=== PATIENT | female | born 1955 | race Caucasian/White ===

== ENCOUNTER → 2023-09-11 | Outpatient (CLI) | payer MEDICARE, SELFPAY ==
[2023-09-11 16:56] LABS: T4 Free Direct 1.13 ng/dL (0.76-1.46); Thyroid Stim Hormone (TSH) 0.33 uIU/mL (0.358-3.74)
== END | disposition home or self-care (01) ==
PROVIDERS: PCP Family Medicine; Referring Provider Family Medicine; Visit Provider Family Medicine
DX: E03.9 Hypothyroidism, unspecified (principal)
CPT/HCPCS: 36415; 84439; 84443

== ENCOUNTER → 2023-11-04 | Outpatient (CLI) | payer MEDICARE, SELFPAY ==
--- OUTSIDE RECORDS SUMMARY | 2023-11-04 11:56 | XMS RPT_ITS | CCD ---
Author Name Unknown Address [address] [place] [address] Organization [facility] Care Team Providers Care Supervisor Anodizing Name Role Phone Silvia Person Primary Care Provider GABRIELA WEEKS Referring Unavailable SILVIA PERSON Primary Care Unavail able Unavailable Primary Care Provider UnavailSLAVA Romero Referring Unavailable SLAVA VERGARA Attending Unavailable Nicole Calixto MD Primary Care Provider GABRIELA WEEKS Referring Unavailable NICOLE CALIXTO Primary Care Unavailable GABRIELA WEEKS Referring Unavailable NICOLE CALIXTO Primary Care Unavailable Nicholas Cannon DO Primary Care Provider NICHOLAS CANNON Primary Care Unavailable FLAVIO BRANDT Attending UnavailNICOLE Webster Primary Care Unavailable APOLINAR URBAN Attending Unavailable NICOLE CALIXTO Primary Care Unavailable RAUL, CLAUDETTE Referring Unavailable ISIDRA BROWN Referring Unavailable RAULGARFIELD ESTRADAN Attending Unavailable RAULGARFIELD ESTRADAN Primary Care Unavailable SILVIA PERSON Primary Care Unavail able GABRIELA WEEKS Attending Unavailable SILVIA PERSON Primary Care Unavail able NICOLE CALIXTO Primary Care Unavailable APOLINAR URBAN Attending Unavailable APOLINAR URBAN Attending Unavailable NICOLE CALIXTO Primary Care Unavailable Allergies Allergy Classification Reported Allergen(s) Allergy Type Date of Onset Reaction(s) Facility (12 sources) modafinil; Translations: [MODAFINIL] Drug Allergy 09-13-2011 Other: See Comments [facility] (12 sources) Non-steroidal anti-inflammator y agent; Translations: [NSAIDS (NON-STEROIDAL ANTI-INFLAMMATOR Y DRUG)] Drug Allergy 12-30-2017 Other: See Comments [facility] (16 sources) watermelon preparation; Translations: [WATERMELON] Drug Allergy 12-30-2017 Other: See Comments [facility] (12 sources) Nectarine; Translations: [NECTARINE] Drug Allergy 12-30-2017 Other: See Comments [facility] (4 sources) modafinil Drug Allergy 09-13-2011 [facility] (4 sources) Non-steroidal anti-inflammator y agent Drug Allergy 12-30-2017 [facility] Medications Current Medications Medication Drug Class(es) Dates Sig (Normalized) Sig (Original) acetaminophen 325 mg / oxyCODONE hydrochloride 5 mg oral tablet (14 sources) Opioid Agonist Start: 02-22-2022 take 1 tablet by mouth every eight hours as needed oxyCODONE-acetami nophen (PERCOCET) 5-325 mg per tablet Take 1 tablet by mouth every 8 hours as needed. 0 02/22/2022 Active Completed/Discontinued Medications Medication Drug Class(es) Dates Sig (Normalized) Sig (Original) CALCIUM PHOSPHATE DIBAS/VIT D3 (VITAMIN D, WITH CALCIUM, ORAL) (3 sources) End: 05-25-2023 CALCIUM PHOSPHATE DIBAS/VIT D3 (VITAMIN D, WITH CALCIUM, ORAL) Take 1.25 Units by mouth as directed. Twice a week Vitamin D 1.25 mg/50,000 units 0 05/25/2023 Discontinued Problems Active Problems Problem Classification Problem Date Documented Da te Episodic/Chronic Immunizations and screening for infectious disease (1 source) Contact with or exposure to other viral diseases; Translations: [Exposure to COVID-19 virus] 05-25-2023 Episodic Other gastrointestinal disorders (2 sources) Complete fecal incontinence; Translations: [Full incontinence of feces] Onset: 09-17-2023 09-17-2023 Episodic Other gastrointestinal disorders (1 source) Full incontinence of feces; Translations: [Full incontinence of feces] Onset: 09-17-2023 Episodic Other non-traumatic joint disorders (3 sources) Pain in right hip joint; Translations: [Pain in right hip] 05-14-2023 Episodic Other non-traumatic joint disorders (1 source) Pain in right hip; Translations: [Pain in right hip] Onset: 06-04-2023 Episodic Other nutritional; endocrine; and metabolic disorders (9 sources) Obese class I; Translations: [Obesity, unspecified] Onset: 02-22-2022 02-22-2022 Chronic Residual codes; unclassified (1 source) Pain, unspecified; Translations: [Pain] Onset: 05-15-2023 Episodic Spondylosis; intervertebral disc disorders; other back problems (5 sources) Lumbar radiculopathy; Translations: [Radiculopathy, lumbar region] Onset: 06-04-2023 05-15-2023 Episodic Thyroid disorders (11 sources) Acquired hypothyroidism; Translations: [Hypothyroidism, unspecified] Onset: 02-22-2022 02-22-2022 Chronic Unclassified (1 source) Other low back pain; Translations: [Other low back pain] Onset: 06-04-2023 Viral infection (3 sources) Disease caused by 2019-nCoV; Translations: [COVID-19] 05-26-2023 Episodic Viral infection (2 sources) COVID-19; Translations: [COVID-19] Onset: 05-26-2023 Past or Other Problems Problem Classification Problem Date Documented Da te Episodic/Chronic Diabetes mellitus without complication (9 sources) Prediabetes; Translations: [Prediabetes] Onset: 02-22-2022 02-22-2022 Episodic Malaise and fatigue (6 sources) Fatigue; Translations: [Other fatigue] Onset: 05-26-2023 05-25-2023 Episodic Other gastrointestinal disorders (9 sources) History of bypass of stomach; Translations: [Bariatric surgery status] Onset: 02-22-2022 02-22-2022 Episodic Results Test Name Value Interpretation Reference Range Facil ity Vital Signs Date Time Vital Sign Value Performing Clinician Faci lity 09-17-2023 10:[id number] Body height 160 cm Flavio Brandt MD Work Phone: [facility] 09-17-2023 10:27-0500 Body mass index (BMI) [Ratio] 32.24 kg/m2 Flavio Brandt MD Work Phone: [facility] 09-17-2023 10:27-0500 Body weight 82.56 kg Flavio Brandt MD Work Phone: [facility] 09-17-2023 10:27-0500 Diastolic blood pressure 80 mm[Hg] Flavio Brandt MD Work Phone: [facility] 09-17-2023 10:27-0500 Heart rate 75 /min Flavio Brandt MD Work Phone: [facility] 09-17-2023 10:27-0500 Systolic blood pressure 141 mm[Hg] Flavio Brandt MD Work Phone: [facility] 05-26-2023 19:17-0400 Heart rate 91 /min Slava Vergara MD Work Phone: [facility] 05-26-2023 18:44-0400 Body temperature 97.7 [degF] Slava Vergara MD Work Phone: [facility] 05-26-2023 18:44-0400 Diastolic blood pressure 74 mm[Hg] Slava Vergara MD Work Phone: [facility] 05-26-2023 18:44-0400 Respiratory rate 20 /min Slava Vergara MD Work Phone: [facility] 05-26-2023 18:44-0400 SaO2% (BldA) [Mass fraction] 95 % Slava Vergara MD Work Phone: [facility] 05-26-2023 18:44-0400 Systolic blood pressure 126 mm[Hg] Slava Vergara MD Work Phone: [facility] 05-25-2023 14:34-0400 Body height 157.5 cm Isidra Brown SENIOR RUBY DEVELOPER.CAFE WORKER Work Phone: [facility] 05-25-2023 14:34-0400 Body temperature 97.5 [degF] Isidra Brown SENIOR RUBY DEVELOPER.CAFE WORKER Work Phone: [facility] 05-25-2023 14:34-0400 Body weight 85.28 kg Isidra Brown SENIOR RUBY DEVELOPER.CAFE WORKER Work Phone: [facility] 05-25-2023 14:34-0400 Diastolic blood pressure 84 mm[Hg] Isidra Brown SENIOR RUBY DEVELOPER.CAFE WORKER Work Phone: [facility] 05-25-2023 14:34-0400 Heart rate 87 /min Isidra Brown SENIOR RUBY DEVELOPER.CAFE WORKER Work Phone: [facility] 05-25-2023 14:34-0400 Respiratory rate 16 /min Isidra Brown SENIOR RUBY DEVELOPER.CAFE WORKER Work Phone: [facility] 05-25-2023 14:34-0400 SaO2% (BldA) [Mass fraction] 98 % Isidra Brown SENIOR RUBY DEVELOPER.CAFE WORKER Work Phone: [facility] 05-25-2023 14:34-0400 Systolic blood pressure 144 mm[Hg] Isidra Brown SENIOR RUBY DEVELOPER.CAFE WORKER Work Phone: [facility] 05-15-2023 12:58-0400 Body weight 86.18 kg Gabriela Weeks PA-C Work Phone: [facility] Encounters Encounter Date Encounter Type Care Provider Facility Start: 09-22-2023 End: 09-22-2023 ambulatory [facility] Facility:[facility] Start: 09-17-2023 End: 09-17-2023 ambulatory NICHOLAS CANNON [facility] Start: 09-17-2023 End: 09-17-2023 Office outpatient new 45 minutes Flavio Brandt MD Work Phone: [facility] Procedures Date Procedure Procedure Detail Performing Clinician Start: 05-26-2023 Radiologic exam ches t 2 views Slava Vergara MD Work Phone: Start: 05-26-2023 SARS-COV-2, FLU A/B, AND RSV COMBO Slava Vergara MD Work Phone: Start: 05-26-2023 Urnls dip stick/tabl et reagent auto microscopy Slava Vergara MD Work Phone: Start: 05-26-2023 Ecg routine ecg w/le ast 12 lds trcg only w/o i&r Slava Vergara MD Work Phone: Start: 05-26-2023 Comprehensive metabo lic panel Slava Vergara MD Work Phone: Start: 05-26-2023 Drug test def 1-7 classes Slava Vergara MD Work Phone: Start: 05-26-2023 End: 05-26-2023 Thyrotropin [Units/volume] in Serum or Plasma Slava Vergara MD Work Phone: Start: 02-26-2023 Mammography Gabriela Vet ovitz PA-C Work Phone: Start: 01-07-2023 Lipid 1996 panel - S stephen or Plasma Claudette Henderson SENIOR RUBY DEVELOPER.CAFE WORKER Work Phone: Start: 01-10-2022 Mammography Gabriela Vet ovitz PA-C Work Phone: Plan of Treatment Date Care Activity Detail Author Start: 01-08-2028 Lipid 1996 panel - Serum or Plasma Lipid Screening [facility] Start: 01-08-2028 LIPID SCREEN LIPID SCREEN [facility] Start: 07-15-2027 DTaP,Tdap,and Td Vaccines (2 - Td or Tdap) DTaP,Tdap,and Td Vaccines (2 - Td or Tdap) [facility] Start: 07-15-2027 Urine microalbumin profile [facility] Start: 12-19-2026 LIPID SCREEN LIPID SCREEN [facility] Start: 01-07-2026 Diabetes Screening Diabetes Screening [facility] Start: 12-19-2024 DIABETES SCREEN DIABETES SCREEN [facility] Start: 12-19-2024 Diabetes Screening Diabetes Screening [facility] Start: 05-28-2024 ANNUAL PCP TEAM CHRONIC DISEASE VISIT ANNUAL PCP TEAM CHRONIC DISEASE VISIT [facility] Start: 05-26-2024 Thyroid stimulating hormone measurement TSH Level [facility] Start: 02-27-2024 Mammography [facility] Start: 09-17-2023 Diabetes: Annual Urine Albumin-Creatinine Ratio (uACR) Diabetes: Annual Urine Albumin-Creatinine Ratio (uACR) [facility] Start: 09-17-2023 Hemoglobin A1c measurement Diabetes: Blood Sugar Control Test (HGBA1C) [facility] Start: 08-06-2023 Adolescent depression screening assessment Depression Screening [facility] Start: 08-06-2023 Falls Risk Assessment Falls Risk Assessment [facility] Start: 08-06-2023 Hepatitis C screening Hepatitis C Screening [facility] Start: 08-06-2023 Lipid panel Cholesterol Screening (Lipid Panel) [facility] Start: 08-06-2023 Medicare Annual Wellness Visit Medicare Annual Wellness Visit [facility] Start: 08-06-2023 Screening for malignant neoplasm of breast Breast Cancer Screening [facility] Start: 08-06-2023 Screening for malignant neoplasm of colon Colorectal Cancer Screening: Colonoscopy [facility] Start: 08-06-2023 Screening for osteoporosis Osteoporosis Screening (Bone Density Screening) [facility] Start: 08-06-2023 Social Influencers of Health Screening Social Influencers of Health Screening [facility] Start: 07-21-2023 End: 09-20-2023 Thyrotropin [Units/volume] in Serum or Plasma TSH BLD Lab Routine Acquired hypothyroidism Expected: 07/21/2023, Expires: 09/20/2023 [facility] Work Phone: Immunizations Immunization Date Immunization Notes Care Provider [facility] 07-02-2022 COVID-19 vaccine, ag e 12+ yr, bivalent (PFIZER-BIONTECH) Claudette Henderson SENIOR RUBY DEVELOPER.CAFE WORKER Work Phone: [facility] 07-02-2022 pneumococcal (PCV20) vaccine, 20 valent (PREVNAR 20) Claudette Henderson SENIOR RUBY DEVELOPER.CAFE WORKER Work Phone: [facility] 06-25-2022 influenza (aIIV4) vaccine, age 65+ yr, quadrivalent, PF (FLUAD QUAD) Claudette Henderson SENIOR RUBY DEVELOPER.CAFE WORKER Work Phone: [facility] 06-25-2022 influenza virus vacc ine, unspecified formulation Claudette Henderson SENIOR RUBY DEVELOPER.CAFE WORKER Work Phone: [facility] 01-17-2022 COVID-19 original vaccine, age 12+ yr, monovalent (PFIZER-BIONTECH - COTA TOP) Claudette Henderson SENIOR RUBY DEVELOPER.CAFE WORKER Work Phone: [facility] 07-27-2021 influenza (aIIV4) vaccine, age 65+ yr, quadrivalent, PF (FLUAD QUAD) Claudette Raul SENIOR RUBY DEVELOPER.CAFE WORKER Work Phone: [facility] 12-22-2020 COVID-19 original vaccine, age 12+ yr, monovalent (PFIZER-BIONTECH - PURPLE TOP) Claudette Raul SENIOR RUBY DEVELOPER.CAFE WORKER Work Phone: [facility] 12-01-2020 COVID-19 original vaccine, age 12+ yr, monovalent (PFIZER-BIONTECH - PURPLE TOP) Claudette Raul SENIOR RUBY DEVELOPER.CAFE WORKER Work Phone: [facility] 07-26-2020 influenza, high dose seasonal, preservative-free Claudette Raul SENIOR RUBY DEVELOPER.CAFE WORKER Work Phone: [facility] 09-16-2019 Seasonal, quadrivale nt, recombinant, injectable influenza vaccine, preservative free Caludette Raul SENIOR RUBY DEVELOPER.CAFE WORKER Work Phone: [facility] 08-17-2019 zoster vaccine recombinant Claudette Raul SENIOR RUBY DEVELOPER.CAFE WORKER Work Phone: [facility] 04-22-2019 zoster vaccine recombinant Claudette Raul SENIOR RUBY DEVELOPER.CAFE WORKER Work Phone: [facility] 09-08-2018 influenza, high dose seasonal, preservative-free Claudette Raul SENIOR RUBY DEVELOPER.CAFE WORKER Work Phone: [facility] 07-15-2017 influenza, injectabl e, quadrivalent, preservative free Claudette Raul SENIOR RUBY DEVELOPER.CAFE WORKER Work Phone: [facility] 07-15-2017 tetanus toxoid, redu sharla diphtheria toxoid, and acellular pertussis vaccine, adsorbed Claudette Raul SENIOR RUBY DEVELOPER.CAFE WORKER Work Phone: [facility] 08-09-2016 influenza, injectabl e, quadrivalent, preservative free Claudette Raul SENIOR RUBY DEVELOPER.CAFE WORKER Work Phone: [facility] 08-17-2015 influenza, injectabl e, quadrivalent, preservative free Claudette Raul SENIOR RUBY DEVELOPER.CAFE WORKER Work Phone: [facility] 07-04-2014 influenza, injectabl e, madin maggy canine kidney, preservative free Claudette Raul SENIOR RUBY DEVELOPER.CAFE WORKER Work Phone: [facility] 01-26-2014 zoster vaccine, live Claudette A skins SENIOR RUBY DEVELOPER.CAFE WORKER Work Phone: [facility] 06-29-2013 influenza, seasonal, injectable, preservative free Claudette Raul SENIOR RUBY DEVELOPER.CAFE WORKER Work Phone: [facility] 08-25-2012 influenza, seasonal, injectable Claudette Raul SENIOR RUBY DEVELOPER.CAFE WORKER Work Phone: [facility] 06-19-2011 influenza, seasonal, injectable Claudette Raul SENIOR RUBY DEVELOPER.CAFE WORKER Work Phone: [facility] Payers Date Payer Category Payer Medicare [id number] 2021 Medicare [id number] 1955 Unknown [id number] Social History Date Type Detail Facility Start: 05-26-2023 End: 09-17-2023 Tobacco smoking status NHIS Never smoked tobacco [facility] Start: 05-20-2022 End: 05-28-2023 Alcohol intake Current drinker of alcohol (finding) [facility] Start: 05-20-2022 End: 08-26-2023 History of Social function [facility] Start: 05-20-2022 End: 08-26-2023 Tobacco use panel [facility] National Score (1-10 0), lower number is lower risk 48 [facility] Start: 1955 Sex Assigned At Not on file [facility] Start: 02-20-2022 Gender identity Identifies as female gender (finding) [facility] Start: 02-20-2022 Sexual orientation Heterosexual (rosalie francis) [facility] Start: 05-26-2023 End: 09-17-2023 Tobacco use and exposure Smokeless tobacco non-user [facility] [employer] [facility] Start: 05-16-2023 End: 05-26-2023 Exposure to SARS-CoV-2 (event) Not sure [facility] Are you now , , , , never or living with a partner? [facility] How often do you hav e 6 or more drinks on 1 occasion? Never [facility] (I/We) worried wheth er (my/our) food would run out before (I/we) got money to buy more. Never true [facility] Clinical Notes 05-15-2023 to 09-26-2023 Flavio Brandt MD - 09/17/2023 11:39 AM Caitlin Brandt MD - 09/17/2023 10:30 AM Apolinar Ascencio PT - 09/11/2023 4:30 PM Apolinar Ascencio PT - 09/11/2023 1:14 PM [email or web address] Note Date & Type Note Facility 09-26-2023 Note HNO ID: [id number] Author: Apolinar Urban PT Service: ? Author Type: Physical Therapist Type: Progress Notes Filed: 09/26/2023 9:42 AM Note Text: Episode Visit Count: 3 Therapist That Will Accept/Oversee The Plan Of Care: Apolinar Urban Start of Care Date: 08/26/23 Onset Date: 08/19/23 Plan of Care Certification Date: 08/26/23 Next Certification Due Date: 10/26/23 [facility] PHYSICAL THERAPY DISCONTINUANCE OF CARE PLAN OF CARE UPDATE: Assessment: Domenica Boswell is discontinued from Physical Therapy services due to maximal benefit. and Patient/Clinician mutual decision to discontinue current plan of care.. Patient was seen for 3 visits from Start of Care Date: 08/26/23 to 09/26/2023 and treatment included: Therapeutic exercise, Manual therapy, and Self-assisted management. Goals updated on 09/22/2023. Goals for Episode of Care: created on 08/26/23 through 10/26/23 Independent in home exercises. Met Patient will decrease pain rating by 2 points to meet minimal clinical important difference for numeric pain rating scale. Not met Restore pain-free lumbar ROM to WNL to allow for improved functional Mobility. Not met Stand / Walk as needed for ADLs, IADLs, and self care without Pain/symptoms. Not met Sleep through night without pain/symptoms. Not met Patient will increase strength of trunk to 4/5 to allow for improve ability to complete ADLs. Not met SUBJECTIVE: Overall patient not seeing any improvements subjectively or functionally and she would like to make today her last visit. Pain: Pain Pain Level: 10 Pain Location: Back Description: Aching Frequency: Intermittent PROMIS Scales Higher is Better 09/22/2023 09/08/2023 08/24/2023 Phys Func - Score 41 (mild dysfunction) - 45 (within normal limits) Phys Func - Percentile 18% - 31% Self-Eff Symptom - Score - 39 (Low) - Self-Eff Symptom - Percentile - 14% - T-scores: mean of general population = 50. 5 points is clinically meaningfully difference Percentiles provide an indication of how the patient's score ranks in relation to the general population. Higher percentile rankings indicate better function/quality of life. 50th percentile is the average of the general population and indicates half of respondents had a worse score. OBJECTIVE MEASURES WITH LEVEL OF FUNCTION: Lumbar Spine AROM Lumbar Flexion: Moderate limitation Lumbar Extension: Increased pain Lumbar R Side-Bend: Minimal limitation Lumbar L Side-Bend: Increased pain Lumbar R Rotation: Minimal limitation Lumbar L Rotation: Minimal limitation LE Strength Trunk Strength: 3/5 R LE Strength: 4+/5 L LE Strength: 4+/5 TREATMENT: Therapeutic Exercise: 1: SKC 3x30 sec/side 2: DKC x30 sec 3: TA bracing x10, 3 sec holds 4: Seated forward flexion 3x30 sec 5: Objective measures obtained Skilled Intervention: Patient was educated in proper exercise technique and purpose for exercises. Skilled judgment was used in selection of appropriate interventions. Correct performance of therapeutic exercises was facilitated with verbal cuing. Billing Therapeutic Exercise Treatment Minutes: 24 Skilled Treatment Time Minutes (timed and untimed codes): 24 Total Session Time (minutes): 24 Session Start Time : 1220 Session Stop Time : 1244 Apolinar Urban PT [facility] 09-17-2023 History of Presen t illness Narrative Associated Problem(s): Full incontinence of feces 1 year history of fecal incontinence and the patient reports at least 7 episodes of fecal incontinence in a week. I recommend that she consume around 20 to 25 g of fiber 64 ounces of water avoid food substances that would give her diarrhea perform Kegel exercises continue accommodative maneuvers such as wearing a perineal pad carrying extra underwear. I recommend that she undergo pelvic floor training for fecal incontinence she wishes to have this done near her hometown and I am asked her to request her primary care physician to arrange this for her. I recommend that she undergo colonoscopies and biopsies to rule out microscopic colitis once again the patient tells me that she will try to find a provider near her hometown that we will do this for her. If conservative measures mentioned above fails and after microscopic colitis has been ruled out continuation of fecal incontinence will most likely respond to sacral nerve stimulator implantation. I have explained the surgery in great detail to the patient and her I have also provided her with patient education brochures. I have also provided the bowel tracker symptoms form where she has to record the number of bowel movements in a day the quality of the stool the degree of incontinence. Such form of documentation is required before we consider sacral nerve stimulator implantation which was done in 2 stages. I spent 45 minutes with the patient and her today more than 50% of time was spent in explanation and coordination of care Subjective Patient ID: Domenica Boswell is a 68 y.o. female. Chief Complaint Patient presents with Consult New patient HPI 68-year-old patient Mrs. Boswell has been asked to see us by her primary care physician for the problem of fecal incontinence. According to the patient. 10 watery stools a day to which she is incontinent. She is not able to eat when everybody eats for the fear of fecal incontinence she carries extra underwear and wears a pad. She may be incontinent as much as 2 times a day. Her current incontinence episodes is more than 7 times a week. She has had a colonoscopy within the last 1 year but when asked she says that she was not having this many frequent watery stools at the time of the colonoscopy. She has not had any anal surgeries does not have any anal symptoms denies any protrusions of the rectal area. She has had 2 vaginal deliveries with episiotomies. She does not complain of obstructive defecation syndrome or rectal prolapse. The symptoms of incontinence appeared about a year ago. The following portions of the patient's chart were reviewed in this encounter and updated as appropriate: Tobacco Allergies Meds Problems Med Hx Surg Hx Fam Hx Review of Systems Objective Physical Exam Constitutional: General: She is not in acute distress. HENT: Head: Normocephalic and atraumatic. Nose: No congestion or rhinorrhea. Mouth/Throat: Mouth: Mucous membranes are moist. Pharynx: Oropharynx is clear. Eyes: Extraocular Movements: Extraocular movements intact. Conjunctiva/sclera: Conjunctivae normal. Cardiovascular: Rate and Rhythm: Normal rate and regular rhythm. Pulses: Normal pulses. Heart sounds: No murmur heard. Pulmonary: Effort: No respiratory distress. Breath sounds: No wheezing, rhonchi or rales. Abdominal: General: There is no distension. Palpations: There is no mass. Tenderness: There is no abdominal tenderness. Genitourinary: Comments: A careful anorectal evaluation included an anoscopy and evaluation of the patient's anal opening while straining at the commode to have a bowel movement. She does not have any prolapse of any kind either hemorrhoids or rectum. Her anal architecture is normal. Hemorrhoids are absent in the perianal skin but does have internal hemorrhoids to which she is not symptomatic. She does have hypopigmentation of the perianal skin consistent with pruritus and perhaps lichen fecal incontinence. Musculoskeletal: General: No swelling or tenderness. Cervical back: No rigidity or tenderness. Lymphadenopathy: Cervical: No cervical adenopathy. Skin: Coloration: Skin is not jaundiced or pale. Findings: No bruising or erythema. Neurological: General: No focal deficit present. Mental Status: She is alert and oriented to person, place, and time. Psychiatric: Mood and Affect: Mood normal. Behavior: Behavior normal. Assessment/Plan Problem List Items Addressed This Visit Full incontinence of feces - Primary 1 year history of fecal incontinence and the patient reports at least 7 episodes of fecal incontinence in a week. I recommend that she consume around 20 to 25 g of fiber 64 ounces of water avoid food substances that would give her diarrhea perform Kegel exercises continue accommodative maneuvers such as wearing a perineal pad carrying extra underwear. I recommend that she undergo pelvic floor training for fecal incontinence she wishes to have this done near her hometown and I am asked her to request her primary care physician to arrange this for her. I recommend that she undergo colonoscopies and biopsies to rule out microscopic colitis once again the patient tells me that she will try to find a provider near her hometown that we will do this for her. If conservative measures mentioned above fails and after microscopic colitis has been ruled out continuation of fecal incontinence will most likely respond to sacral nerve stimulator implantation. I have explained the surgery in great detail to the patient and her I have also provided her with patient education brochures. I have also provided the bowel tracker symptoms form where she has to record the number of bowel movements in a day the quality of the stool the degree of incontinence. Such form of documentation is required before we consider sacral nerve stimulator implantation which was done in 2 stages. I spent 45 minutes with the patient and her today more than 50% of time was spent in explanation and coordination of care A fiber fact sheet patient education brochures on incontinence and all of the advice given above was given to her in writing. documented in this encounter [facility] 09-11-2023 Note HNO ID: [id number] Author: Apolinar Urban, PT Service: ? Author Type: Physical Therapist Type: Progress Notes Filed: 09/11/2023 4:32 PM Note Text: Episode Visit Count: 2 Therapist That Will Accept/Oversee The Plan Of Care: Apolinar Urban Start of Care Date: 08/26/23 Onset Date: 08/19/23 Plan of Care Certification Date: 08/26/23 Next Certification Due Date: 10/26/23 REHABILITATION AND SPORTS THERAPY PHYSICAL THERAPY TREATMENT NOTE ASSESSMENT: Domenica Boswell tolerated the session with decreased symptoms. She demonstrated difficulty with continued LBP. The patient will continue to benefit from ongoing skilled physical therapy to progress toward set goals. PLAN FOR NEXT VISIT: Continue flexion bias and traction, progress strengthening per tolerance SUBJECTIVE: Pt notes increased L sided LBP with exercises Pain: Pain Pain Level: 10 Pain Location: Back Description: Sharp, Stabbing Frequency: Intermittent OBJECTIVE MEASURES WITH LEVEL OF FUNCTION: L paraspinals reproduce LBP today TREATMENT: Therapeutic Exercise: 1: SKC 3x30 sec/side 2: DKC x30 sec 3: TA bracing x10, 3 sec holds 4: TA bracing plus alt marching x10/side 5: *Seated forward flexion 3x30 sec 6: *TA bracing in seated 3x10, 5 sec holds 7: *TA bracing plus alt marching in seated 3x10/side Skilled Intervention: Patient was educated in proper exercise technique and purpose for exercises. Skilled judgment was used in selection of appropriate interventions. Provided written instruction for home exercise program to facilitate proper performance and compliance. Correct performance of therapeutic exercises was facilitated with verbal, visual, and tactile cuing. Manual Therapy: 1: STM to L lumbar paraspinals with push to tolerance 2: Manual lumbar traction with feet on stool and pull to tolerance x10 min Skilled Intervention: Manual skills to improve joint mobility, ROM, and decrease pain. Utilized anatomy knowledge of the therapist, and assessment of patient's response to intervention. Billing Therapeutic Exercise Treatment Minutes: 22 Manual TherapyTreatment Minutes: 18 Total Session Time (minutes): 40 Session Start Time : 1235 Session Stop Time : 1315 Apolinar Urban, PT [facility] 09-11-2023 History of Presen t illness Narrative Episode Visit Count: 2 Therapist That Will Accept/Oversee The Plan Of Care: Apolinar Urban Start of Care Date: 08/26/23 Onset Date: 08/19/23 Plan of Care Certification Date: 08/26/23 Next Certification Due Date: 10/26/23 REHABILITATION AND SPORTS THERAPY PHYSICAL THERAPY TREATMENT NOTE ASSESSMENT: Domenica Boswell tolerated the session with decreased symptoms. She demonstrated difficulty with continued LBP. The patient will continue to benefit from ongoing skilled physical therapy to progress toward set goals. PLAN FOR NEXT VISIT: Continue flexion bias and traction, progress strengthening per tolerance SUBJECTIVE: Pt notes increased L sided LBP with exercises Pain: Pain Pain Level: 10 Pain Location: Back Description: Sharp, Stabbing Frequency: Intermittent OBJECTIVE MEASURES WITH LEVEL OF FUNCTION: L paraspinals reproduce LBP today TREATMENT: Therapeutic Exercise: 1: SKC 3x30 sec/side 2: DKC x30 sec 3: TA bracing x10, 3 sec holds 4: TA bracing plus alt marching x10/side 5: *Seated forward flexion 3x30 sec 6: *TA bracing in seated 3x10, 5 sec holds 7: *TA bracing plus alt marching in seated 3x10/side Skilled Intervention: Patient was educated in proper exercise technique and purpose for exercises. Skilled judgment was used in selection of appropriate interventions. Provided written instruction for home exercise program to facilitate proper performance and compliance. Correct performance of therapeutic exercises was facilitated with verbal, visual, and tactile cuing. Manual Therapy: 1: STM to L lumbar paraspinals with push to tolerance 2: Manual lumbar traction with feet on stool and pull to tolerance x10 min Skilled Intervention: Manual skills to improve joint mobility, ROM, and decrease pain. Utilized anatomy knowledge of the therapist, and assessment of patient's response to intervention. Billing Therapeutic Exercise Treatment Minutes: 22 Manual TherapyTreatment Minutes: 18 Total Session Time (minutes): 40 Session Start Time : 1235 Session Stop Time : 1315 Apolinar Urban PT Program_ID:[id number] Access Code: [email or web address] URL: [email or web address] Date: 09-11-2023 Prepared By: Apolinar Urban Program Notes Exercises - Hooklying Single Knee to Chest - 1 x daily - 7 x weekly - 3 - 3 - Supine Double Knee to Chest - 1 x daily - 7 x weekly - 3 - 3 - Supine Posterior Pelvic Tilt - 1 x daily - 7 x weekly - 3 - 10 - Supine March - 1 x daily - 7 x weekly - 3 - 10 - Seated Lumbar Flexion Stretch - 1 x daily - 7 x weekly - 3 - 3 documented in this encounter [facility] 08-26-2023 Note HNO ID: [id number] Author: Apolinar Urban PT Service: ? Author Type: Physical Therapist Type: Progress Notes Filed: 08/26/2023 5:17 PM Note Text: Episode Visit Count: 1 Therapist That Will Accept/Oversee The Plan Of Care: Apolinar Urban Start of Care Date: 08/26/23 Onset Date: 08/19/23 Plan of Care Certification Date: 08/26/23 Next Certification Due Date: 10/26/23 Patient Identified by Name and Date of : Yes REHABILITATION AND SPORTS THERAPY PHYSICAL THERAPY EVALUATION PLAN OF CARE: Assessment: Domenica Boswell presents with chief complaint of chronic back pain that interferes with heavy exertion, lifting . She presents with impairments in ADL's, overall function, range of motion, strength, and symptom management. PROMIS? (Patient-Reported Outcomes Measurement Information System) scores were reviewed and physical function domain identified as within normal limits. Prognosis for therapy is Fair due to: clinical presentation, chronic nature of impairments, limited support system, limited tolerance to activity . She will benefit from skilled therapy services to meet the goals established for this plan of care as noted below. Classification Low Back Pain Subgroup Classification: Specific exercise subgroup: recommended visits 8. Specific Exercies Subgroup Classification based on: directional preference Goals for Episode of Care: created on 08/26/23 through 10/26/23 Independent in home exercises. Patient will decrease pain rating by 2 points to meet minimal clinical important difference for numeric pain rating scale. Restore pain-free lumbar ROM to WNL to allow for improved functional mobility Stand / Walk as needed for ADLs, IADLs, and self care without pain/symptoms. Sleep through night without pain/symptoms. Patient will increase strength of trunk to 4/5 to allow for improve ability to complete ADLs. Planned Interventions, Frequency, and Duration: Current Frequency: 1x/week Duration: 8 weeks Total Number of Visits Planned: 8 Planned Treatment Interventions: Therapeutic exercise (75016), Neuromuscular re-education (94883), Manual therapy (95781), Therapeutic activities (83600), Self-assisted management (15131), Patient/Family/Caregiver Education, Body Mechanics Training PLAN FOR NEXT VISIT: Progress neutral spine strengthening, R spine foraminal opening Patient demonstrates good understanding of plan of care and treatment. The above goals and plan of care were discussed and agreed upon by patient/family. SUBJECTIVE: R sided LBP x a week. Pt notes long standing hstory of back issues for multiple decades and has ~ 1 episode a year. This time the pain is isolated to the right side. No specific movement or position increases or decreases pain. Pt takes Oxycodone and complete bed rest until symptoms improve. Functional Limitations: heavy exertion, lifting Prior Level of Function: Independent without limitations Intake Information: Prescription present Spine History Symptoms Location at Onset: Back Symptoms Since Onset: Improving Pain is Worse Always: (All positions and movements) Pain is Better Always: No position Sleep Affected by Pain: Pain keeps from falling asleep, Pain awakens Pain: Pain Pain Level: 10 (4/10 currently) Pain Location: Back Description: Sharp, Stabbing, Aching Frequency: Intermittent Post Treatment Pain Post Treatment Pain Level: 2 PROMIS Scales Higher is Better 08/24/2023 Phys Func - Score 45 (within normal limits) Phys Func - Percentile 31 % T-scores: mean of general population = 50. 5 points is clinically meaningfully difference Percentiles provide an indication of how the patient's score ranks in relation to the general population. Higher percentile rankings indicate better function/quality of life. 50th percentile is the average of the general population and indicates half of respondents had a worse score. OBJECTIVE MEASURES WITH LEVEL OF FUNCTION: Lumbar Spine AROM Lumbar Flexion: Moderate limitation Lumbar Extension: Increased pain Lumbar R Side-Bend: Minimal limitation Lumbar L Side-Bend: Increased pain Lumbar R Rotation: Minimal limitation Lumbar L Rotation: Minimal limitation Repeated Test Movements - Lumbar RFIL - Symptoms During: decreases RFIL - Symptoms After: better LE Strength Trunk Strength: 3/5 grossly R LE Strength: 4+/5 grossly L LE Strength: 4+/5 grossly Special Tests - Hip and Spine Hip and Spine Special Tests: SLR Test, Slump Test SLR Test: Right Negative, Left Negative Slump Test: Right Negative, Left Negative Education: Education Learning/educational needs: Home exercise program, Plan of Care, Changes in Plan of Care, Posture, Body Mechanics TREATMENT: PT Treatment Interventions: Therapeutic Exercise, Self-Shelter Management Evaluation Therapeutic Exercise: 1: *SKC 3x30 sec on R 2: *DKC 3x30 sec 3: *TA bracing 3x10, 5 sec holds 4: *TA (more content not included)... [facility] 08-26-2023 History of Presen t illness Narrative Episode Visit Count: 1 Therapist That Will Accept/Oversee The Plan Of Care: Apolinar Urban Start of Care Date: 08/26/23 Onset Date: 08/19/23 Plan of Care Certification Date: 08/26/23 Next Certification Due Date: 10/26/23 Patient Identified by Name and Date of : Yes REHABILITATION AND SPORTS THERAPY PHYSICAL THERAPY EVALUATION PLAN OF CARE: Assessment: Domenica Boswell presents with chief complaint of chronic back pain that interferes with heavy exertion, lifting . She presents with impairments in ADL's, overall function, range of motion, strength, and symptom management. PROMIS (Patient-Reported Outcomes Measurement Information System) scores were reviewed and physical function domain identified as within normal limits. Prognosis for therapy is Fair due to: clinical presentation, chronic nature of impairments, limited support system, limited tolerance to activity . She will benefit from skilled therapy services to meet the goals established for this plan of care as noted below. Classification Low Back Pain Subgroup Classification: Specific exercise subgroup: recommended visits 8. Specific Exercies Subgroup Classification based on: directional preference Goals for Episode of Care: created on 08/26/23 through 10/26/23 Independent in home exercises. Patient will decrease pain rating by 2 points to meet minimal clinical important difference for numeric pain rating scale. Restore pain-free lumbar ROM to WNL to allow for improved functional mobility Stand / Walk as needed for ADLs, IADLs, and self care without pain/symptoms. Sleep through night without pain/symptoms. Patient will increase strength of trunk to 4/5 to allow for improve ability to complete ADLs. Planned Interventions, Frequency, and Duration: Current Frequency: 1x/week Duration: 8 weeks Total Number of Visits Planned: 8 Planned Treatment Interventions: Therapeutic exercise (39972), Neuromuscular re-education (55196), Manual therapy (24732), Therapeutic activities (84516), Self-assisted management (52657), Patient/Family/Caregiver Education, Body Mechanics Training PLAN FOR NEXT VISIT: Progress neutral spine strengthening, R spine foraminal opening Patient demonstrates good understanding of plan of care and treatment. The above goals and plan of care were discussed and agreed upon by patient/family. SUBJECTIVE: R sided LBP x a week. Pt notes long standing hstory of back issues for multiple decades and has ~ 1 episode a year. This time the pain is isolated to the right side. No specific movement or position increases or decreases pain. Pt takes Oxycodone and complete bed rest until symptoms improve. Functional Limitations: heavy exertion, lifting Prior Level of Function: Independent without limitations Intake Information: Prescription present Spine History Symptoms Location at Onset: Back Symptoms Since Onset: Improving Pain is Worse Always: (All positions and movements) Pain is Better Always: No position Sleep Affected by Pain: Pain keeps from falling asleep, Pain awakens Pain: Pain Pain Level: 10 (4/10 currently) Pain Location: Back Description: Sharp, Stabbing, Aching Frequency: Intermittent Post Treatment Pain Post Treatment Pain Level: 2 PROMIS Scales Higher is Better 08/24/2023 Phys Func - Score 45 (within normal limits) Phys Func - Percentile 31 % T-scores: mean of general population = 50. 5 points is clinically meaningfully difference Percentiles provide an indication of how the patient's score ranks in relation to the general population. Higher percentile rankings indicate better function/quality of life. 50th percentile is the average of the general population and indicates half of respondents had a worse score. OBJECTIVE MEASURES WITH LEVEL OF FUNCTION: Lumbar Spine AROM Lumbar Flexion: Moderate limitation Lumbar Extension: Increased pain Lumbar R Side-Bend: Minimal limitation Lumbar L Side-Bend: Increased pain Lumbar R Rotation: Minimal limitation Lumbar L Rotation: Minimal limitation Repeated Test Movements - Lumbar RFIL - Symptoms During: decreases RFIL - Symptoms After: better LE Strength Trunk Strength: 3/5 grossly R LE Strength: 4+/5 grossly L LE Strength: 4+/5 grossly Special Tests - Hip and Spine Hip and Spine Special Tests: SLR Test, Slump Test SLR Test: Right Negative, Left Negative Slump Test: Right Negative, Left Negative Education: Education Learning/educational needs: Home exercise program, Plan of Care, Changes in Plan of Care, Posture, Body Mechanics TREATMENT: PT Treatment Interventions: Therapeutic Exercise, Self-Shelter Management Evaluation Therapeutic Exercise: 1: *SKC 3x30 sec on R 2: *DKC 3x30 sec 3: *TA bracing 3x10, 5 sec holds 4: *TA bracing plus alt marching 3x10/side Skilled Intervention: Patient was educated in proper exercise technique and purpose for exercises. Skilled judgment was used in selection of appropriate interventions. Provided written instruction for home exercise program to facilitate proper performance and compliance. Correct performance of therapeutic exercises was facilitated with verbal, visual, and tactile cuing. Self-Shelter Management: 1: Discussed plan of care, reviewed imaging and implications ofr rehab, rationale for exercises Skilled Intervention: Skilled judgment in the selection of proper modification for activity of daily living/home management based on clinical presentation, deficits, and needs. Reviewed patient specific diagnosis in relation to activities of daily living/home management. Activity progression based on professional judgement. Billing * Evaluation Low Complexity: 1 Unit Therapeutic Exercise Treatment Minutes: 12 Self-Care/Home Management Treatment Minutes: 12 Skilled Treatment Time Minutes (timed and untimed codes): 35 Total Session Time (minutes): 35 Session Start Time : 1010 Session Stop Time : 1045 Apolinar Urban PT Program_ID:[id number] Access Code: [email or web address] URL: [email or web address] Date: 08-26-2023 Prepared By: Apolinar Urban Program Notes Exercises - Hooklying Single Knee to Chest - 1 x daily - 7 x weekly - 3 - 3 - Supine Double Knee to Chest - 1 x daily - 7 x weekly - 3 - 3 - Supine Posterior Pelvic Tilt - 1 x daily - 7 x weekly - 3 - 10 - Supine March - 1 x daily - 7 x weekly - 3 - 10 documented in this encounter [facility] 07-22-2023 Miscellaneous Notes Discussed with patient. She is now using [facility] in [place]. Asking that scripts for both dosages be sent there instead. Hetal Tomlin RN Dose change at virtual visit on 05/28 was to take 125 mcg x 5 days per week and 150 mcg x 2 days per week, so she should take it like this and follow up with her new PCP. Claudette Henderson APRN.KASIE Discussed with patient. She states she was told to take 150 mcg 5 days a week and 125 mcg 2 days a week. She is unsure how long she has been on this dosage. Does not take it consistently. In the process of moving to [place]. States she has OV scheduled at end of July with a new PCP in [place]. Please advise on dosage. Hetal Tomlin RN Let patient know that her thyroid hormone is still too low. Confirm she is taking levothyroxine 125 mcg 5 days per week and 150 mcg 2 days per week. If so, would like her to change to 125 mcg every day and recheck her labs in 8 weeks. Also, patient needs an in person office visit with Dr. Calixto, please schedule 40 minute establish care appointment. She can have her labs re-drawn at this appointment. Claudette Henderson APRN.CNP documented in this encounter [facility] 06-04-2023 Note HNO ID: [id number] Author: Megan Akers RT(R) Service: ? Author Type: Steam And Power Supervisor Type: Progress Notes Filed: 06/04/2023 9:59 AM Note Text: Radiology Service Progress Note PATIENT NAME: Domenica Boswell DATE OF SERVICE: June 04, 2023 TIME: 9:58 AM PATIENT IDENTITY VERIFICATION COMPLETED USING TWO (2) IDENTIFIERS: Name and Date of confirmed by patient verbally. FALL SCREENING: Has the patient had 2 falls in the last year or 1 fall with injury or currently using an Ambulatory Assistive Device (Walker, Cane, Wheelchair, Crutches, etc.)? No PATIENT GENDER DATA: Female. status: : No status: NO. PATIENT RELEVANT IMPLANT DATA REVIEWED: Not Applicable RADIOLOGY DEPARTMENT: General X-ray: Exam(s) Completed: Spine X-Ray(s): Cervical AP / LAT , Thoracic, and Lumbar AP / LAT / L5-S1 PERIPHERAL IV DATA: Not applicable SIGNED BY: RT Kristin(R) June 04, 2023 9:58 AM [facility] 06-04-2023 History of Presen t illness Narrative Radiology Service Progress Note PATIENT NAME: Domenica Boswell DATE OF SERVICE: June 04, 2023 TIME: 9:58 AM PATIENT IDENTITY VERIFICATION COMPLETED USING TWO (2) IDENTIFIERS: Name and Date of confirmed by patient verbally. FALL SCREENING: Has the patient had 2 falls in the last year or 1 fall with injury or currently using an Ambulatory Assistive Device (Walker, Cane, Wheelchair, Crutches, etc.)? No PATIENT GENDER DATA: Female. status: : No status: NO. PATIENT RELEVANT IMPLANT DATA REVIEWED: Not Applicable RADIOLOGY DEPARTMENT: General X-ray: Exam(s) Completed: Spine X-Ray(s): Cervical AP / LAT , Thoracic, and Lumbar AP / LAT / L5-S1 PERIPHERAL IV DATA: Not applicable SIGNED BY: RT Kristin(R) June 04, 2023 9:58 AM documented in this encounter [facility] 05-28-2023 Note HNO ID: [id number] Author: Claudette Henderson APRN.KASIE Service: ? Author Type: Nurse Practitioner Type: Progress Notes Filed: 05/28/2023 2:17 PM Note Text: VIRTUAL VISIT PROGRESS NOTE This is a virtual visit using [employer] video visit. It required patient-provider interaction for the medical decision making as documented below. I have communicated my name and active licensure. The patient's identity and physical location were verified at the time of this visit. Either the patient or their legal technical services representative has been informed of the risks and benefits of -- and alternatives to -- treatment through a remote evaluation and consents to proceed with the evaluation remotely. Domenica Boswell is a 68 year old female seen for fatigue and ER follow up. Recently seen in [facility] and the ER, had recent labs showing low TSH and normal T4. Also tested positive for covid, very fatigued. In January her TSH was elevated and her dose was increased to 150 mcg QD. Prior to that, she was taking 125 mcg 5 days per week and 150 mcg 2 days. In July, she is moving to [place], needs to establish care with new PCP, nothing scheduled yet. HISTORY REVIEWED (electronic chart updated): PAST MEDICAL HISTORY Diagnosis Date Diabetes (HCC) High cholesterol Thyroid disease PAST SURGICAL HISTORY Procedure Laterality Date PAST SURGICAL HISTORY OF Tonsillectomy PAST SURGICAL HISTORY OF 2001 Gastric bypass PAST SURGICAL HISTORY OF Hysterectomy PAST SURGICAL HISTORY OF breast augmentation/abdominalplasty FAMILY HISTORY Problem Relation Age of Onset Diabetes Mother Heart Father Ischemic Heart Disease Father at 42 [place] Social History Tobacco Use Smoking status: Never Smokeless tobacco: Never Substance Use Topics Alcohol use: Yes Comment: rare Drug use: No Current Outpatient Medications Medication Sig predniSONE (DELTASONE) 10 mg tablet 6 tabs po day 1, then 5 tabs day 2, 4 tabs day 3, 3 tabs day 4, 2 tabs day 5, 1 tab day 6. levothyroxine (SYNTHROID) 125 mcg tablet Take 1 tablet by mouth daily before breakfast. Take 125 mcg ////Fri, Take 150 mcg T/ oxyCODONE-acetaminophen (PERCOCET) 5-325 mg tablet Take 1 tablet by mouth every 8 hours as needed for pain. CLOBETASOL PROPIONATE (CLOBETASOL TOPICAL) Apply to affected area as needed. CREAM traZODone (DESYREL) 100 mg tablet Take 100 mg by mouth daily at bedtime. PNV WITH CA#74/IRON/FOLIC ACID ( LOW IRON ORAL) Take by mouth once daily. venlafaxine (EFFEXOR) 50 mg tablet Take 150 mg by mouth three times daily. CETIRIZINE HCL (ZYRTEC ORAL) Take by mouth as needed. No current facility-administered medications for this visit. ALLERGIES Allergen Reactions Modafinil Other: See Comments Worsening depression Nectarine Other: See Comments Abdominal pain Nsaids (Non-Steroid* Other: See Comments GASTRIC BYPASS Watermelon Other: See Comments Abdominal pain REVIEW OF SYSTEMS: As above PHYSICAL EXAMINATION: VIDEO EXAM: (if completed, performed via video enabled technology) GENERAL: alert and appropriate, in no distress, well-hydrated, well nourished, and happy, smiling, interactive 1. Acquired hypothyroidism Will adjust levothyroxine dose to 125 mcg 5 days per week and 150 mcg 2 days per week, recheck in 8 weeks. - T4 FREE/FREE THYROX; Future - TSH BLD; Future 2. COVID-19 Continue supportive care, follow up PRN, red flag symptoms to ER. Claudette Henderson APRN.[facility] 05-28-2023 History of Presen t illness Narrative VIRTUAL VISIT PROGRESS NOTE This is a virtual visit using [employer] video visit. It required patient-provider interaction for the medical decision making as documented below. I have communicated my name and active licensure. The patient's identity and physical location were verified at the time of this visit. Either the patient or their legal technical services representative has been informed of the risks and benefits of -- and alternatives to -- treatment through a remote evaluation and consents to proceed with the evaluation remotely. Domenica Boswell is a 68 year old female seen for fatigue and ER follow up. Recently seen in [facility] and the ER, had recent labs showing low TSH and normal T4. Also tested positive for covid, very fatigued. In January her TSH was elevated and her dose was increased to 150 mcg QD. Prior to that, she was taking 125 mcg 5 days per week and 150 mcg 2 days. In July, she is moving to [place], needs to establish care with new PCP, nothing scheduled yet. HISTORY REVIEWED (electronic chart updated): PAST MEDICAL HISTORY Diagnosis Date Diabetes (HCC) High cholesterol Thyroid disease PAST SURGICAL HISTORY Procedure Laterality Date PAST SURGICAL HISTORY OF Tonsillectomy PAST SURGICAL HISTORY OF 2001 Gastric bypass PAST SURGICAL HISTORY OF Hysterectomy PAST SURGICAL HISTORY OF breast augmentation/abdominalplasty FAMILY HISTORY Problem Relation Age of Onset Diabetes Mother Heart Father Ischemic Heart Disease Father at 42 [place] Social History Tobacco Use Smoking status: Never Smokeless tobacco: Never Substance Use Topics Alcohol use: Yes Comment: rare Drug use: No Current Outpatient Medications Medication Sig predniSONE (DELTASONE) 10 mg tablet 6 tabs po day 1, then 5 tabs day 2, 4 tabs day 3, 3 tabs day 4, 2 tabs day 5, 1 tab day 6. levothyroxine (SYNTHROID) 125 mcg tablet Take 1 tablet by mouth daily before breakfast. Take 125 mcg M/W//S/Fri, Take 150 mcg T/Th oxyCODONE-acetaminophen (PERCOCET) 5-325 mg tablet Take 1 tablet by mouth every 8 hours as needed for pain. CLOBETASOL PROPIONATE (CLOBETASOL TOPICAL) Apply to affected area as needed. CREAM traZODone (DESYREL) 100 mg tablet Take 100 mg by mouth daily at bedtime. PNV WITH CA#74/IRON/FOLIC ACID ( LOW IRON ORAL) Take by mouth once daily. venlafaxine (EFFEXOR) 50 mg tablet Take 150 mg by mouth three times daily. CETIRIZINE HCL (ZYRTEC ORAL) Take by mouth as needed. No current facility-administered medications for this visit. ALLERGIES Allergen Reactions Modafinil Other: See Comments Worsening depression Nectarine Other: See Comments Abdominal pain Nsaids (Non-Steroid* Other: See Comments GASTRIC BYPASS Watermelon Other: See Comments Abdominal pain REVIEW OF SYSTEMS: As above PHYSICAL EXAMINATION: VIDEO EXAM: (if completed, performed via video enabled technology) GENERAL: alert and appropriate, in no distress, well-hydrated, well nourished, and happy, smiling, interactive 1. Acquired hypothyroidism Will adjust levothyroxine dose to 125 mcg 5 days per week and 150 mcg 2 days per week, recheck in 8 weeks. - T4 FREE/FREE THYROX; Future - TSH BLD; Future 2. COVID-19 Continue supportive care, follow up PRN, red flag symptoms to ER. Claudette Henderson APRN.[facility] documented in this encounter [facility] 05-26-2023 Hospital Discharg e instructions Slava Vergara MD - 05/26/2023 10:50 PM EDT You have been seen in the Emergency Department for COVID-19 and fatigue. No antibiotics are required, no steroids are required. Please wear a mask, make sure to wash your hands frequently, get plenty of rest. After a visit to the Emergency Department, follow-up is important. You should follow-up with [facility] so that you can get established with a primary care physician Return to the ED if you develop chest pain, palpitations, shortness of breath, decreased exercise tolerance, you feel weak feel faint or pass out, lightheaded, nausea vomiting or sweating, or if any new signs, symptoms, or concerns arise. The following attachments cannot be sent through Care Everywhere.COVID-19 Overview (Kiswahili)Fatigue (Kiswahili)documented in this encounter [facility] 05-26-2023 Emergency department Note was at bedside and left room. Pt was seen walking out of her room and down hallway by this RN then was noted on surveillance camera exiting ED and ambulating into parking lot with steady gait. Pt left prior to receiving discharge instructions. Hilda Bush RN 05/26/23 1767 [facility] 05-26-2023 Emergency department Note was at bedside and left room. Pt was seen walking out of her room and down hallway by this RN then was noted on surveillance camera exiting ED and ambulating into parking lot with steady gait. Pt left prior to receiving discharge instructions. Hilda Bush RN 05/26/232246 Pt does not want X-ray done, does not find it necessary to do. Taina Guevara LPN 05/26/231941 Pt states she just took a covid test and does not want to take another one at this time. Taina Guevara LPN 05/26/231929 Images from the original note were not included. EMERGENCY DEPARTMENT ENCOUNTER Pt Name: Domenica Boswell Birthdate 1955 Date of evaluation: 05/26/2023 ED Provider: Slava Vergara MD CHIEF COMPLAINT No chief complaint on file. HISTORY OF PRESENT ILLNESS (Location/Symptom, Timing/Onset, Context/Setting, Quality, Duration, Modifying Factors, Severity) Note limiting factors. I wore appropriate PPE for the entirety of this encounter. HPI Domenica Boswell is a 68 y.o. who presents to the emergency department with generalized fatigue Patient endorses 4 days of generalized fatigue since Friday. Last week she was in close contact with her daughter who was recently diagnosed with COVID-19. Patient denies any neurological symptoms, no numbness or weakness in the arms or legs no ataxia no confusion no slurred speech no facial droop no vertigo no syncope no presyncope. No chest pain no palpitations no shortness of breath no decreased exercise tolerance. No fevers no chills no rashes no cellulitis no abdominal pain no nausea vomiting or diarrhea. No hematochezia no melena no dysuria urgency frequency or hematuria. She does have a history of hypothyroidism for which she takes Synthroid. Back in December her doctor who is out of state and no longer taking care of her increased her dose from 125 mcg some days of the week and 150 mcg other days of the week of Synthroid up to 150 mcg daily. She tolerated this very well and no other changes have been made since. Patient denies any vaginal bleeding or vaginal discharge. Past surgical history of gastric bypass many years ago. Denies any change in appetite, denies any vomiting or diarrhea. She is prediabetic but has never been in DKA. She is on trazodone and affect sore, denies feelings of depression. She says that more than anything she is just tired and has less energy than usual. She is wondering if she is hypothyroid or if she is anemic or if she contracted COVID-19 from her daughter. Does not smoke drink or use drugs. Family history but no personal history of anemia. Nursing Notes were reviewed. Limitations to history: None Outside historians: None REVIEW OF SYSTEMS Review of Systems Pertinent positives and negatives as per HPI PAST MEDICAL HISTORY History reviewed. No pertinent past medical history. SURGICAL HISTORY History reviewed. No pertinent surgical history. CURRENT MEDICATIONS Discharge Medication List as of 05/26/2023 10:50 PM CONTINUE these medications which have NOT CHANGED Details levothyroxine (Synthroid, Levoxyl) 125 MCG tablet Take 125 mcg by mouth., Starting Fri02/22/2022, Historical Med oxyCODONE-acetaminophen (Percocet) 5-325 MG tablet Take 1 tablet by mouth every 8 hours as needed., Starting Fri02/22/2022, Historical Med predniSONE (Deltasone) 10 MG tablet 6 tabs po day 1, then 5 tabs day 2, 4 tabs day 3, 3 tabs day 4, 2 tabs day 5, 1 tab day 6., Historical Med traZODone (Desyrel) 100 MG tablet Take 100 mg by mouth daily at bedtime., Historical Med venlafaxine (Effexor) 50 MG tablet Take 150 mg by mouth in the morning and 150 mg at noon and 150 mg in the evening., Historical Med ALLERGIES Citrullus vulgaris, Modafinil, and Nsaids FAMILY HISTORY No family history on file. SOCIAL HISTORY Social History Socioeconomic History Marital status: Tobacco Use Smoking status: Never Smokeless tobacco: Never Substance and Sexual Activity Drug use: Never SCREENINGS NIH Stroke Scale 1A. Level of Consciousness: Alert, Keenly Responsive 1B. Ask Month and Age: Both Questions Right 1C. Blink Eyes & Squeeze Hands: Performs Both Tasks 2. Best Gaze: Normal 3. Visual: No Visual Loss 4. Facial Palsy: Normal Symmetrical Movements 5A. Motor - Left Arm: No Drift 5B. Motor - Right Arm: No Drift 6A. Motor - Left Leg: No Drift 6B. Motor - Right Leg: No Drift 7. Limb Ataxia: Absent 8. Sensory Loss: Normal 9. Best Language: No Aphasia 10. Dysarthria: Normal 11. Extinction and Inattention: No Abnormality NIH Stroke Scale: 0 PHYSICAL EXAM ED Triage Vitals [05/26/23 1844] Temp Heart Rate Resp BP 36.5 C (97.7 F) 105 20 126/74 SpO2 Temp Source Heart Rate Source Patient Position 95 % Oral Monitor Sitting BP Location FiO2 (%) Right arm -- Physical Exam General: WDWN adult in NAD. Non-toxic appearing HENT: Head NCAT, EOMI with no erythema, swelling or discharge. TMs normal bilaterally Nares normal bilaterally Oropharyngeal mucus membranes moist, pink, no exudate Neck: Full ROM, supple, no rigidity, no palpable goiter Cardio: RRR in the 90s, normotensive, nl s1 s2 no m/r/g, extremities warm, dry, well perfused, non-edematous, 2+ bilateral radial pulses, 2+ bilateral DP pulses Lungs: CTAB, no wheezes, rales, rhonchi, normal work of breathing. No cough no cyanosis no retractions. SaO2 95% on room air. Speaks in complete sentences. Abdomen: Soft, NT, ND, non-rigid, BS x 4 normal, no flank pain to palpation bilaterally. No CVA tenderness to palpation bilaterally. 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 Denies SI, HI, AH, VH. Not responding to internal stimuli. Not psychotic. DIAGNOSTIC RESULTS RADIOLOGY (Per Emergency Physician): Interpretation per the Radiologist below, if available at the time of this note: XR chest 2 views Final Result 1. No acute findings. Report Dictated on Electronically Signed By: Colin Cox MD Electronically Signed Date/Time: 05/26/2023 9:00 PM EDT LABS: Labs Reviewed SARS-COV-2, FLU A/B, AND RSV COMBO - Abnormal Result Value SARS-CoV-2 Detected (*) Respiratory Syncytial Virus Not Detected Influenza A Not Detected Influenza B Not Detected Narrative: Methodology: real-time, RT-PCR The SARS-CoV-2, Flu A/B, and RSV Combo assay is intended for in vitro diagnostic use under the FDA Emergency Use Authorization (EUA). This test has not been FDA cleared or approved. In compliance with this authorization, please visit www.fda.gov/media/513940/[email or web address] d or www.fda.gov/media/622542/[email or web address] d to access the applicable information sheets. THYROID STIMULATING HORMONE - Abnormal THYROID STIMULATING HORMONE 0.051 (*) CBC WITH AUTO DIFFERENTIAL - Abnormal Auto WBC 9.5 RBC 4.46 Hemoglobin 13.9 Hematocrit 41.5 MCV 93.0 MCH 31.2 MCHC 33.5 RDW 13.7 Platelets 315 MPV 8.4 Neutrophils Relative 65.6 Lymphocytes Relative 23.2 Monocytes Relative 7.7 Eosinophils Relative 2.7 Basophils Relative 0.4 Immature Grans % 0.4 (*) Neutrophils Absolute 6.2 Lymphocytes Absolute 2.2 Monocytes Absolute 0.7 Eosinophils Absolute 0.3 Basophils Absolute 0.0 Immature Grans Absolute 0.0 COMPREHENSIVE METABOLIC PANEL - Abnormal SODIUM 135 POTASSIUM 4.0 CHLORIDE 102 CARBON DIOXIDE 26 ANION GAP 7 UREA NITROGEN 24 (*) CREATININE 0.84 GLUCOSE 143 (*) CALCIUM 9.5 AST (SGOT) 34 ALT 28 ALKALINE PHOSPHATASE 114 ALBUMIN 4.2 BILIRUBIN, TOTAL 0.4 TOTAL PROTEIN 7.1 eGFR 74.9 COMPLETE URINALYSIS - Abnormal Color, Urine Yellow Clarity, Urine Clear pH, Urine 5.0 Leukocytes, Urine 75 (*) Nitrite, Urine Negative Protein, Urine Negative Glucose, Urine Normal Bilirubin, Urine Negative Ketones, Urine Negative Urobilinogen, Urine 2 (*) Blood, Urine Negative Volume, Urine 8-12 mL RBC, Urine Negative WBC, Urine 3-5 Squamous Epithelial, Urine 6-10 (*) Bacteria, Urine Few (*) SPECIFIC GRAVITY OF URINE (NUMERIC) 1.025 FREE T4 - Normal FREE T4 1.80 TROPONIN I - Normal TROPONIN I <0.012 Narrative: Patients with high levels of Biotin oral intake (ie >5 mg/day) may have falsely decreased Troponin levels. MAGNESIUM - Normal MAGNESIUM 2.2 ETHANOL - Normal ETHANOL IN SER/PLAS <0.010 Narrative: NOTE: This result is for medical treatment only. Analysis performed using non-forensic procedures. SARS-COV-2, FLU A/B, AND RSV COMBO All other labs were within normal range or not returned as of this dictation. EMERGENCY DEPARTMENT COURSE and DIFFERENTIAL DIAGNOSIS/MDM: Vitals: Vitals: 05/26/23 1844 05/26/23 1917 BP: 126/74 BP Location: Right arm Patient Position: Sitting Pulse: 105 91 Resp: 20 Temp: 36.5 C (97.7 F) TempSrc: Oral SpO2: 95% Medications - No data to display 68-year-old female presents for 4 days of generalized fatigue MDM elements: The patient presented with chief complaint of generalized fatigue. The differential diagnosis associated with this patient's presentation includes hypothyroidism, COVID-19 or other viral infection, pneumonia, anemia, dehydration, electrolyte disarray, occult ACS. Less likely to be stroke given completely normal neurological examination and NIHSS of 0. Patient does not have any evidence or symptoms of infection. No recent changes to thyroid medication or psychiatric medication. Our workup consisted of ordering/reviewing: Chest x-ray, full metabolic work-up including thyroid studies and COVID-19 testing. Diagnostic tests considered but not performed: CT head not required, patient has no neurological symptoms and her NIHSS is 0. Pulmonary embolism seems less likely as well patient is not tachypneic or tachycardic or hypoxic or short of breath, so CTA chest is not indicated as radiation risk would outweigh diagnostic benefits. To aid in management, I performed an independent interpretation of EKG(s) see below Xray(s) see below Blood work, see below. The patient will be Discharged. Patient is in agreement with this plan. Patient's care was impacted by history of chronic hypothyroidism. Patient's care was significantly impacted by social determinants of health including patient has no primary care physician in the state. PROCEDURES: Unless otherwise noted below, none Procedures EKG: I read and interpreted this EKG. My interpretation can be found in the [email or web address] EKG system. Normal sinus rhythm. No acute ischemia. Metabolic panel shows no metabolic acidosis, good kidney function, glucose mildly elevated at 143 Aminotransferases and alkaline phosphatase unremarkable Troponin negative Normal white blood cell count Not anemic Normal platelet count TSH is low but free T4 (the functional hormone that matters to the patient's physiology) is normal at 1.80. Not consistent with hypothyroidism. Urinalysis shows negative nitrites, 75 leukocytes which is within normal limits for this assay, with only 3-5 white blood cells and a few bacteria. Not overwhelmingly convincing for UTI. No indication for antibiotics at this time. Alcohol negative Chest x-ray shows no acute findings. No pneumonia. Interpreted by me. Respiratory PCR panel positive for COVID-19 which likely explains patient's fatigue. Influenza negative. RSV negative. Patient has no severe respiratory distress, she is clinically stable, SaO2 is 95% on room air, she is not delirious or confused. Her chest x-ray is negative, her heart rate is under 100, her respiratory rate is under 22, she has no CHF or COPD. She is 68 years old but she is also vaccinated against COVID-19. Therefore her [facility] COVID-19 24-hour decompensation score is 0. This puts her in the low risk for COVID-19 decompensation within 24 hours and she should therefore be safe to discharge. This was explained to patient in detail and she indicated understanding and agreement. She understands that these are estimated risk values and are not infallible but is comfortable going home at this time. MEDICAL DECISION MAKING: I utilized an evidence-based risk rating tool (CMT) along with my training and experience to weigh the risk of discharge against the risks of further testing, imaging, or hospitalization. At this time I estimate the risks of additional testing, imaging, or hospitalization to be equal to or greater than the risk of discharge. I discussed my risk assessment with the patient and the patient consents to the risk of discharge as well as the risk of uncertainty in estimating outcomes. At this time, for this patient with known or suspected COVID-19, the risk of acute decompensation in the short term is most likely lower than the risk of additional testing/imaging or hospitalization. [id number] Upon reassessment, patient is hemodynamically stable, no respiratory distress whatsoever, no chest pain no fevers no chills no tachypnea tachycardia hypoxia or sepsis. Not toxic. There is no indication for inpatient hospitalization at this time. Patient should wear a mask, wash her hands, make sure to stay well-hydrated and get plenty of rest. No steroids indicated as patient is not hypoxic, no antibiotics indicated as COVID-19 is a viral infection. If the patient develops worsening fatigue, feels weak feels faint or passes out, chest pain or shortness of breath or hemoptysis or inability to eat or drink or nausea or vomiting, fevers or chills she cannot control with Motrin or Tylenol, she should return to the ED immediately. Otherwise she should be stable for outpatient follow-up. Since she does not have a PCP, I have also given her contact information for [facility] so that she can get established with a PCP. Results of workup and plan of care discussed with patient. She indicated understanding. Strict return precautions and anticipatory guidance given. All questions answered to her satisfaction. Patient discharged home in stable condition. Disposition: Discharged CRITICAL CARE TIME FINAL IMPRESSION 1. COVID-19 2. Other fatigue DISPOSITION Discharge 05/26/2023 07:19:27 PM PATIENT REFERRED TO: [facility] [address] [facility] [phone] Schedule an appointment as soon as possible for a visit DISCHARGE MEDICATIONS: Discharge Medication List as of 05/26/2023 10:50 PM (Comment: Please note this report has been produced using speech recognition software and may contain errors related to that system including errors in grammar, punctuation, and spelling, as well as words and phrases that may be inappropriate. If there are any questions or concerns please feel free to contact the dictating provider for clarification.) Slava Vergara MD (electronically signed) Emergency Medicine Provider Slava Vergara MD 05/27/23 0405 Pt presents to the ED with fatigue. Pt states she noticed it this past Friday. Pt states she feels overly exhausted. Pt states she thinks it is relevant to her thyroid. Pt was able to walk back to the unit without any difficulty. Pt call light is within reach. documented in this encounter [facility] 05-26-2023 Note NOTE: This result is for medical treatment only. Analysis performed using non-forensic procedures. [facility] 05-26-2023 Emergency department Note Pt does not want X-ray done, does not find it necessary to do. Taina Guevara LPN 05/26/231941 [facility] 05-26-2023 Emergency department Note Pt states she just took a covid test and does not want to take another one at this time. Taina Guevara LPN 05/26/231929 [facility] 05-26-2023 Emergency department Triage note Pt presents to the ED with fatigue. Pt states she noticed it this past Friday. Pt states she feels overly exhausted. Pt states she thinks it is relevant to her thyroid. Pt was able to walk back to the unit without any difficulty. Pt call light is within reach. [facility] 05-26-2023 Physician Emergency department Note Images from the original note were not included. EMERGENCY DEPARTMENT ENCOUNTER Pt Name: Domenica Boswell Birthdate 1955 Date of evaluation: 05/26/2023 ED Provider: Slava Vergara MD CHIEF COMPLAINT No chief complaint on file. HISTORY OF PRESENT ILLNESS (Location/Symptom, Timing/Onset, Context/Setting, Quality, Duration, Modifying Factors, Severity) Note limiting factors. I wore appropriate PPE for the entirety of this encounter. HPI Domenica Boswell is a 68 y.o. who presents to the emergency department with generalized fatigue Patient endorses 4 days of generalized fatigue since Friday. Last week she was in close contact with her daughter who was recently diagnosed with COVID-19. Patient denies any neurological symptoms, no numbness or weakness in the arms or legs no ataxia no confusion no slurred speech no facial droop no vertigo no syncope no presyncope. No chest pain no palpitations no shortness of breath no decreased exercise tolerance. No fevers no chills no rashes no cellulitis no abdominal pain no nausea vomiting or diarrhea. No hematochezia no melena no dysuria urgency frequency or hematuria. She does have a history of hypothyroidism for which she takes Synthroid. Back in December her doctor who is out of state and no longer taking care of her increased her dose from 125 mcg some days of the week and 150 mcg other days of the week of Synthroid up to 150 mcg daily. She tolerated this very well and no other changes have been made since. Patient denies any vaginal bleeding or vaginal discharge. Past surgical history of gastric bypass many years ago. Denies any change in appetite, denies any vomiting or diarrhea. She is prediabetic but has never been in DKA. She is on trazodone and affect sore, denies feelings of depression. She says that more than anything she is just tired and has less energy than usual. She is wondering if she is hypothyroid or if she is anemic or if she contracted COVID-19 from her daughter. Does not smoke drink or use drugs. Family history but no personal history of anemia. Nursing Notes were reviewed. Limitations to history: None Outside historians: None REVIEW OF SYSTEMS Review of Systems Pertinent positives and negatives as per HPI PAST MEDICAL HISTORY History reviewed. No pertinent past medical history. SURGICAL HISTORY History reviewed. No pertinent surgical history. CURRENT MEDICATIONS Discharge Medication List as of 05/26/2023 10:50 PM CONTINUE these medications which have NOT CHANGED Details levothyroxine (Synthroid, Levoxyl) 125 MCG tablet Take 125 mcg by mouth., Starting Fri02/22/2022, Historical Med oxyCODONE-acetaminophen (Percocet) 5-325 MG tablet Take 1 tablet by mouth every 8 hours as needed., Starting Fri02/22/2022, Historical Med predniSONE (Deltasone) 10 MG tablet 6 tabs po day 1, then 5 tabs day 2, 4 tabs day 3, 3 tabs day 4, 2 tabs day 5, 1 tab day 6., Historical Med traZODone (Desyrel) 100 MG tablet Take 100 mg by mouth daily at bedtime., Historical Med venlafaxine (Effexor) 50 MG tablet Take 150 mg by mouth in the morning and 150 mg at noon and 150 mg in the evening., Historical Med ALLERGIES Citrullus vulgaris, Modafinil, and Nsaids FAMILY HISTORY No family history on file. SOCIAL HISTORY Social History Socioeconomic History Marital status: Tobacco Use Smoking status: Never Smokeless tobacco: Never Substance and Sexual Activity Drug use: Never SCREENINGS NIH Stroke Scale 1A. Level of Consciousness: Alert, Keenly Responsive 1B. Ask Month and Age: Both Questions Right 1C. Blink Eyes & Squeeze Hands: Performs Both Tasks 2. Best Gaze: Normal 3. Visual: No Visual Loss 4. Facial Palsy: Normal Symmetrical Movements 5A. Motor - Left Arm: No Drift 5B. Motor - Right Arm: No Drift 6A. Motor - Left Leg: No Drift 6B. Motor - Right Leg: No Drift 7. Limb Ataxia: Absent 8. Sensory Loss: Normal 9. Best Language: No Aphasia 10. Dysarthria: Normal 11. Extinction and Inattention: No Abnormality NIH Stroke Scale: 0 PHYSICAL EXAM ED Triage Vitals [05/26/23 1844] Temp Heart Rate Resp BP 36.5 C (97.7 F) 105 20 126/74 SpO2 Temp Source Heart Rate Source Patient Position 95 % Oral Monitor Sitting BP Location FiO2 (%) Right arm -- Physical Exam General: WDWN adult in NAD. Non-toxic appearing HENT: Head NCAT, EOMI with no erythema, swelling or discharge. TMs normal bilaterally Nares normal bilaterally Oropharyngeal mucus membranes moist, pink, no exudate Neck: Full ROM, supple, no rigidity, no palpable goiter Cardio: RRR in the 90s, normotensive, nl s1 s2 no m/r/g, extremities warm, dry, well perfused, non-edematous, 2+ bilateral radial pulses, 2+ bilateral DP pulses Lungs: CTAB, no wheezes, rales, rhonchi, normal work of breathing. No cough no cyanosis no retractions. SaO2 95% on room air. Speaks in complete sentences. Abdomen: Soft, NT, ND, non-rigid, BS x 4 normal, no flank pain to palpation bilaterally. No CVA tenderness to palpation bilaterally. 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 Denies SI, HI, AH, VH. Not responding to internal stimuli. Not psychotic. DIAGNOSTIC RESULTS RADIOLOGY (Per Emergency Physician): Interpretation per the Radiologist below, if available at the time of this note: XR chest 2 views Final Result 1. No acute findings. Report Dictated on Electronically Signed By: Colin Cox MD Electronically Signed Date/Time: 05/26/2023 9:00 PM EDT LABS: Labs Reviewed SARS-COV-2, FLU A/B, AND RSV COMBO - Abnormal Result Value SARS-CoV-2 Detected (*) Respiratory Syncytial Virus Not Detected Influenza A Not Detected Influenza B Not Detected Narrative: Methodology: real-time, RT-PCR The SARS-CoV-2, Flu A/B, and RSV Combo assay is intended for in vitro diagnostic use under the FDA Emergency Use Authorization (EUA). This test has not been FDA cleared or approved. In compliance with this authorization, please visit www.fda.gov/media/513349/downloa d or www.fda.gov/media/469308/downloa d to access the applicable information sheets. THYROID STIMULATING HORMONE - Abnormal THYROID STIMULATING HORMONE 0.051 (*) CBC WITH AUTO DIFFERENTIAL - Abnormal Auto WBC 9.5 RBC 4.46 Hemoglobin 13.9 Hematocrit 41.5 MCV 93.0 MCH 31.2 MCHC 33.5 RDW 13.7 Platelets 315 MPV 8.4 Neutrophils Relative 65.6 Lymphocytes Relative 23.2 Monocytes Relative 7.7 Eosinophils Relative 2.7 Basophils Relative 0.4 Immature Grans % 0.4 (*) Neutrophils Absolute 6.2 Lymphocytes Absolute 2.2 Monocytes Absolute 0.7 Eosinophils Absolute 0.3 Basophils Absolute 0.0 Immature Grans Absolute 0.0 COMPREHENSIVE METABOLIC PANEL - Abnormal SODIUM 135 POTASSIUM 4.0 CHLORIDE 102 CARBON DIOXIDE 26 ANION GAP 7 UREA NITROGEN 24 (*) CREATININE 0.84 GLUCOSE 143 (*) CALCIUM 9.5 AST (SGOT) 34 ALT 28 ALKALINE PHOSPHATASE 114 ALBUMIN 4.2 BILIRUBIN, TOTAL 0.4 TOTAL PROTEIN 7.1 eGFR 74.9 COMPLETE URINALYSIS - Abnormal Color, Urine Yellow Clarity, Urine Clear pH, Urine 5.0 Leukocytes, Urine 75 (*) Nitrite, Urine Negative Protein, Urine Negative Glucose, Urine Normal Bilirubin, Urine Negative Ketones, Urine Negative Urobilinogen, Urine 2 (*) Blood, Urine Negative Volume, Urine 8-12 mL RBC, Urine Negative WBC, Urine 3-5 Squamous Epithelial, Urine 6-10 (*) Bacteria, Urine Few (*) SPECIFIC GRAVITY OF URINE (NUMERIC) 1.025 FREE T4 - Normal FREE T4 1.80 TROPONIN I - Normal TROPONIN I <0.012 Narrative: Patients with high levels of Biotin oral intake (ie >5 mg/day) may have falsely decreased Troponin levels. MAGNESIUM - Normal MAGNESIUM 2.2 ETHANOL - Normal ETHANOL IN SER/PLAS <0.010 Narrative: NOTE: This result is for medical treatment only. Analysis performed using non-forensic procedures. SARS-COV-2, FLU A/B, AND RSV COMBO All other labs were within normal range or not returned as of this dictation. EMERGENCY DEPARTMENT COURSE and DIFFERENTIAL DIAGNOSIS/MDM: Vitals: Vitals: 05/26/23 1844 05/26/23 1917 BP: 126/74 BP Location: Right arm Patient Position: Sitting Pulse: 105 91 Resp: 20 Temp: 36.5 C (97.7 F) TempSrc: Oral SpO2: 95% Medications - No data to display 68-year-old female presents for 4 days of generalized fatigue MDM elements: The patient presented with chief complaint of generalized fatigue. The differential diagnosis associated with this patient's presentation includes hypothyroidism, COVID-19 or other viral infection, pneumonia, anemia, dehydration, electrolyte disarray, occult ACS. Less likely to be stroke given completely normal neurological examination and NIHSS of 0. Patient does not have any evidence or symptoms of infection. No recent changes to thyroid medication or psychiatric medication. Our workup consisted of ordering/reviewing: Chest x-ray, full metabolic work-up including thyroid studies and COVID-19 testing. Diagnostic tests considered but not performed: CT head not required, patient has no neurological symptoms and her NIHSS is 0. Pulmonary embolism seems less likely as well patient is not tachypneic or tachycardic or hypoxic or short of breath, so CTA chest is not indicated as radiation risk would outweigh diagnostic benefits. To aid in management, I performed an independent interpretation of EKG(s) see below Xray(s) see below Blood work, see below. The patient will be Discharged. Patient is in agreement with this plan. Patient's care was impacted by history of chronic hypothyroidism. Patient's care was significantly impacted by social determinants of health including patient has no primary care physician in the state. PROCEDURES: Unless otherwise noted below, none Procedures EKG: I read and interpreted this EKG. My interpretation can be found in the [email or web address] EKG system. Normal sinus rhythm. No acute ischemia. Metabolic panel shows no metabolic acidosis, good kidney function, glucose mildly elevated at 143 Aminotransferases and alkaline phosphatase unremarkable Troponin negative Normal white blood cell count Not anemic Normal platelet count TSH is low but free T4 (the functional hormone that matters to the patient's physiology) is normal at 1.80. Not consistent with hypothyroidism. Urinalysis shows negative nitrites, 75 leukocytes which is within normal limits for this assay, with only 3-5 white blood cells and a few bacteria. Not overwhelmingly convincing for UTI. No indication for antibiotics at this time. Alcohol negative Chest x-ray shows no acute findings. No pneumonia. Interpreted by me. Respiratory PCR panel positive for COVID-19 which likely explains patient's fatigue. Influenza negative. RSV negative. Patient has no severe respiratory distress, she is clinically stable, SaO2 is 95% on room air, she is not delirious or confused. Her chest x-ray is negative, her heart rate is under 100, her respiratory rate is under 22, she has no CHF or COPD. She is 68 years old but she is also vaccinated against COVID-19. Therefore her [facility] COVID-19 24-hour decompensation score is 0. This puts her in the low risk for COVID-19 decompensation within 24 hours and she should therefore be safe to discharge. This was explained to patient in detail and she indicated understanding and agreement. She understands that these are estimated risk values and are not infallible but is comfortable going home at this time. MEDICAL DECISION MAKING: I utilized an evidence-based risk rating tool (CMT) along with my training and experience to weigh the risk of discharge against the risks of further testing, imaging, or hospitalization. At this time I estimate the risks of additional testing, imaging, or hospitalization to be equal to or greater than the risk of discharge. I discussed my risk assessment with the patient and the patient consents to the risk of discharge as well as the risk of uncertainty in estimating outcomes. At this time, for this patient with known or suspected COVID-19, the risk of acute decompensation in the short term is most likely lower than the risk of additional testing/imaging or hospitalization. [id number] Upon reassessment, patient is hemodynamically stable, no respiratory distress whatsoever, no chest pain no fevers no chills no tachypnea tachycardia hypoxia or sepsis. Not toxic. There is no indication for inpatient hospitalization at this time. Patient should wear a mask, wash her hands, make sure to stay well-hydrated and get plenty of rest. No steroids indicated as patient is not hypoxic, no antibiotics indicated as COVID-19 is a viral infection. If the patient develops worsening fatigue, feels weak feels faint or passes out, chest pain or shortness of breath or hemoptysis or inability to eat or drink or nausea or vomiting, fevers or chills she cannot control with Motrin or Tylenol, she should return to the ED immediately. Otherwise she should be stable for outpatient follow-up. Since she does not have a PCP, I have also given her contact information for [facility] so that she can get established with a PCP. Results of workup and plan of care discussed with patient. She indicated understanding. Strict return precautions and anticipatory guidance given. All questions answered to her satisfaction. Patient discharged home in stable condition. Disposition: Discharged CRITICAL CARE TIME FINAL IMPRESSION 1. COVID-19 2. Other fatigue DISPOSITION Discharge 05/26/2023 07:19:27 PM PATIENT REFERRED TO: [facility] [address] [facility] [id number] Schedule an appointment as soon as possible for a visit DISCHARGE MEDICATIONS: Discharge Medication List as of 05/26/2023 10:50 PM (Comment: Please note this report has been produced using speech recognition software and may contain errors related to that system including errors in grammar, punctuation, and spelling, as well as words and phrases that may be inappropriate. If there are any questions or concerns please feel free to contact the dictating provider for clarification.) Slava Vergara MD (electronically signed) Emergency Medicine Provider Slava Vergara MD 05/27/23 0405 [facility] [place] 05-25-2023 Note HNO ID: [id number] Author: Isidra Brown APRN.CAFE WORKER Service: ? Author Type: Nurse Practitioner Type: Progress Notes Filed: 05/25/2023 2:53 PM Note Text: This note was created using [employer]. Subjective Domenica Boswell is a 68 year old female. HPI by patient: Domenica Boswell is a 68 year old presenting to the office with the complaint of viral symptoms. Started a couple days ago - then states Friday. Associated symptoms include fatigue, states just fatigue when I'm trying to assess for more symptoms. Denies cough, uri symptoms, fever, body aches, chills, and gi symptoms. Is new to the area. Has no primary care. Does have thyroid issues, isn't sure when she's had blood work done. Covid Immunization Dates Overdue - COVID-19 VACCINE (4 - Pfizer series) Overdue since 10/03/2021 08/08/2021 Imm Admin: COVID-19 original vaccine, age 12+ yr, monovalent (AFINOS-[employer]IONTInteractive TKO - PURPLE TOP) 12/22/2020 Outside Immunization: Pfizer Monovalent Purple Cap SARS-CoV-2 Vaccine 12+ yrs 12/01/2020 Outside Immunization: Pfizer Monovalent Purple Cap SARS-CoV-2 Vaccine 12+ yrs Sick contacts: yes, with covid. Smoking history/second hand smoke: none. OTC not used. No antibiotic use in the last 60 days. ALLERGIES Modafinil Other: See Comments Comment:Worsening depression Nectarine Other: See Comments Comment:Abdominal pain Nsaids (Non-Steroid* Other: See Comments Comment:GASTRIC BYPASS Watermelon Other: See Comments Comment:Abdominal pain Family History Reviewed Including Cardiac Diseases, Psychiatric Diseases, AND Substance Abuse Problem: Diabetes Relation: Mother Age of Onset: (Not Specified) Problem: Heart Relation: Father Age of Onset: (Not Specified) Problem: Ischemic Heart Disease Relation: Father Age of Onset: (Not Specified) Comment: at 42 [place] Social History Tobacco Use Smoking status: Never Smokeless tobacco: Never Alcohol use: Yes Comment: rare Drug use: No Active Ambulatory Problems Acquired hypothyroidism Date Noted: 02/22/2022 Gastric bypass status for obesity Date Noted: 02/22/2022 Class 1 obesity Date Noted: 02/22/2022 Prediabetes Date Noted: 02/22/2022 Resolved Ambulatory Problems No Resolved Ambulatory Problems Past Medical History: No date: Diabetes (HCC) No date: High cholesterol No date: Thyroid disease Review of Systems Constitutional: Positive for fatigue. Negative for chills and fever. HENT: Negative. Eyes: Negative. Respiratory: Negative. Cardiovascular: Negative. Gastrointestinal: Negative. Endocrine: Negative. Genitourinary: Negative. Musculoskeletal: Negative. Skin: Negative. Neurological: Negative. Hematological: Negative. Objective BP 144/84 Pulse 87 Temp 36.4 ?C (97.5 ?F) Resp 16 Ht 157.5 cm (5' 2 ) Wt 85.3 kg (188 lb) SpO2 98% BMI 34.39 kg/m? Physical Exam Vitals reviewed. Constitutional: General: She is not in acute distress. Appearance: She is not ill-appearing, toxic-appearing or diaphoretic. HENT: Head: Normocephalic and atraumatic. Right Ear: Tympanic membrane, ear canal and external ear normal. Left Ear: Tympanic membrane, ear canal and external ear normal. Nose: Nose normal. Right Sinus: No maxillary sinus tenderness or frontal sinus tenderness. Left Sinus: No maxillary sinus tenderness or frontal sinus tenderness. Mouth/Throat: Mouth: Mucous membranes are moist. Pharynx: Oropharynx is clear. No oropharyngeal exudate or posterior oropharyngeal erythema. Cardiovascular: Rate and Rhythm: Normal rate and regular rhythm. Pulmonary: Effort: Pulmonary effort is normal. Breath sounds: Normal breath sounds. Lymphadenopathy: Head: Right side of head: No submandibular or tonsillar adenopathy. Left side of head: No submandibular or tonsillar adenopathy. Cervical: No cervical adenopathy. Psychiatric: Behavior: Behavior is cooperative. Assessment and Plan (Z20.822) Exposure to COVID-19 virus (primary encounter diagnosis) Plan: COVID AND INFLUENZA A/B NAAT, ROUTINE (R53.83) Fatigue, unspecified type Plan: COVID AND INFLUENZA A/B NAAT, ROUTINE Education on viral vs bacterial infections. Most viral infections will last 10 days, sometimes 14. It is possible to have back to back viral infections. An antibiotic will not treat a virus. -Covid/flu test for rule out, results in 48 hours, isolation in the interim. [facility] If positive you may reach out to primary care to discuss antiviral options. After viewing After Visit Summary, patient is asking to discuss her weight loss surgery and weight she gained back. Wants to know where she can go to get back on track. Once again, discussed that once she establishes care this can be discussed. I am not placing a referral out of [facility]. -Drink lots of fluids and get plenty of rest. -Cough/deep breathing education, promote clearing of the airways and good lung expansion. - (more content not included)... [facility] 05-25-2023 History of Presen t illness Narrative This note was created using [employer]. Subjective Domenica Boswell is a 68 year old female. HPI by patient: Domenica Boswell is a 68 year old presenting to the office with the complaint of viral symptoms. Started a couple days ago - then states Friday. Associated symptoms include fatigue, states just fatigue when I'm trying to assess for more symptoms. Denies cough, uri symptoms, fever, body aches, chills, and gi symptoms. Is new to the area. Has no primary care. Does have thyroid issues, isn't sure when she's had blood work done. Covid Immunization Dates Overdue - COVID-19 VACCINE (4 - Pfizer series) Overdue since 10/03/2021 08/08/2021 Imm Admin: COVID-19 original vaccine, age 12+ yr, monovalent (AFINOS-[employer]Interactive TKO - PURPLE TOP) 12/22/2020 Outside Immunization: Pfizer Monovalent Purple Cap SARS-CoV-2 Vaccine 12+ yrs 12/01/2020 Outside Immunization: Pfizer Monovalent Purple Cap SARS-CoV-2 Vaccine 12+ yrs Sick contacts: yes, with covid. Smoking history/second hand smoke: none. OTC not used. No antibiotic use in the last 60 days. ALLERGIES Modafinil Other: See Comments Comment:Worsening depression Nectarine Other: See Comments Comment:Abdominal pain Nsaids (Non-Steroid* Other: See Comments Comment:GASTRIC BYPASS Watermelon Other: See Comments Comment:Abdominal pain Family History Reviewed Including Cardiac Diseases, Psychiatric Diseases, & Substance Abuse Problem: Diabetes Relation: Mother Age of Onset: (Not Specified) Problem: Heart Relation: Father Age of Onset: (Not Specified) Problem: Ischemic Heart Disease Relation: Father Age of Onset: (Not Specified) Comment: at 42 [place] Social History Tobacco Use Smoking status: Never Smokeless tobacco: Never Alcohol use: Yes Comment: rare Drug use: No Active Ambulatory Problems Acquired hypothyroidism Date Noted: 02/22/2022 Gastric bypass status for obesity Date Noted: 02/22/2022 Class 1 obesity Date Noted: 02/22/2022 Prediabetes Date Noted: 02/22/2022 Resolved Ambulatory Problems No Resolved Ambulatory Problems Past Medical History: No date: Diabetes (HCC) No date: High cholesterol No date: Thyroid disease Review of Systems Constitutional: Positive for fatigue. Negative for chills and fever. HENT: Negative. Eyes: Negative. Respiratory: Negative. Cardiovascular: Negative. Gastrointestinal: Negative. Endocrine: Negative. Genitourinary: Negative. Musculoskeletal: Negative. Skin: Negative. Neurological: Negative. Hematological: Negative. Objective BP 144/84 Pulse 87 Temp 36.4 C (97.5 F) Resp 16 Ht 157.5 cm (5' 2 ) Wt 85.3 kg (188 lb) SpO2 98% BMI 34.39 kg/m Physical Exam Vitals reviewed. Constitutional: General: She is not in acute distress. Appearance: She is not ill-appearing, toxic-appearing or diaphoretic. HENT: Head: Normocephalic and atraumatic. Right Ear: Tympanic membrane, ear canal and external ear normal. Left Ear: Tympanic membrane, ear canal and external ear normal. Nose: Nose normal. Right Sinus: No maxillary sinus tenderness or frontal sinus tenderness. Left Sinus: No maxillary sinus tenderness or frontal sinus tenderness. Mouth/Throat: Mouth: Mucous membranes are moist. Pharynx: Oropharynx is clear. No oropharyngeal exudate or posterior oropharyngeal erythema. Cardiovascular: Rate and Rhythm: Normal rate and regular rhythm. Pulmonary: Effort: Pulmonary effort is normal. Breath sounds: Normal breath sounds. Lymphadenopathy: Head: Right side of head: No submandibular or tonsillar adenopathy. Left side of head: No submandibular or tonsillar adenopathy. Cervical: No cervical adenopathy. Psychiatric: Behavior: Behavior is cooperative. Assessment and Plan (Z20.822) Exposure to COVID-19 virus (primary encounter diagnosis) Plan: COVID & INFLUENZA A/B NAAT, ROUTINE (R53.83) Fatigue, unspecified type Plan: COVID & INFLUENZA A/B NAAT, ROUTINE Education on viral vs bacterial infections. Most viral infections will last 10 days, sometimes 14. It is possible to have back to back viral infections. An antibiotic will not treat a virus. -Covid/flu test for rule out, results in 48 hours, isolation [facility] the interim. [facility] If positive you may reach out to primary care to discuss antiviral options. After viewing After Visit Summary, patient is asking to discuss her weight loss surgery and weight she gained back. Wants to know where she can go to get back on track. Once again, discussed that once she establishes care this can be discussed. I am not placing a referral out of [facility]. -Drink lots of fluids and get plenty of rest. -Cough/deep breathing education, promote clearing of the airways and good lung expansion. -Stop at the front desk team member to schedule with primary care to establish care. Needs more of a workup than what is offered in [facility]. Patient appears to not be happy that more of a workup is being done in [facility] for her fatigue. -Signs that warrant an ER evaluation: Sudden change/worsening in condition, lethargy, signs of dehydration, fever greater than 102 F that is not responding to Tylenol or ibuprofen (Motrin, Advil), drooling, difficulty swallowing, difficulty breathing, shortness of breath, chest pain, evidence of airway compromise (tripod position, neck extension, retractions), seizures, changes in mental status, or other concerns. The patient will pursue further outpatient evaluation with the primary care physician or another Urgent Care/[facility] as outlined in the after visit summary. The patient is agreeable to this plan of care and follow-up instructions have been explained in detail. The patient has received these instructions in written format and have expressed an understanding of the after visit summary. Medical Decision Making: Level: 3 - Low I spent a total of 20 minutes on the date of the service which included preparing to see the patient, [id number] patient care, completing clinical documentation, obtaining and/or reviewing separately obtained history, performing a medically appropriate examination, counseling and educating the patient/family/caregiver, and ordering medications, tests, or procedures. This patient encounter involved the screening or treatment of novel coronavirus infection (COVID-19). documented in this encounter [facility] 05-25-2023 Instructions Isidra Brown APRN.CNP - 05/25/2023 2:36 PM EDT (Z20.822) Exposure to COVID-19 virus (primary encounter diagnosis) Plan: COVID & INFLUENZA A/B NAAT, ROUTINE (R53.83) Fatigue, unspecified type Plan: COVID & INFLUENZA A/B NAAT, ROUTINE Education on viral vs bacterial infections. Most viral infections will last 10 days, sometimes 14. It is possible to have back to back viral infections. An antibiotic will not treat a virus. -Covid/flu test for rule out, results in 48 hours, isolation in the interim. [facility] If positive you may reach out to primary care to discuss antiviral options. -Drink lots of fluids and get plenty of rest. -Cough/deep breathing education, promote clearing of the airways and good lung expansion. -Stop at the front desk team member to schedule with primary care to establish care. Needs more of a workup than what is offered in [facility] Care. -Signs that warrant an ER evaluation: Sudden change/worsening in condition, lethargy, signs of dehydration, fever greater than 102 F that is not responding to Tylenol or ibuprofen (Motrin, Advil), drooling, difficulty swallowing, difficulty breathing, shortness of breath, chest pain, evidence of airway compromise (tripod position, neck extension, retractions), seizures, changes in mental status, or other concerns. documented in this encounter [facility] 05-15-2023 Note HNO ID: [id number] Author: Gabriela Weeks PA-C Service: ? Author Type: Physician Stitcher Around Type: Progress Notes Filed: 05/16/2023 8:46 AM Note Text: Gabriela Weeks PA-C Department of Orthopaedics Orthopaedics [address] [address] Dept: [phone] May 15, 2023 CHIEF COMPLAINT: New and Pain of the Right Hip Ms. Domenica Boswell is a 68 year old female who presents with a few episodes of right hip pain. Pain occurs mainly after she drives for long periods of time, drive longer than 30 minutes. She has had 2 episodes where she gets pain along the right groin, lateral aspect of the right hip and down to the right knee and right lyman. Not getting pain with any other activities. No issues with walking. Patient cannot tolerate oral NSAIDs as she has a history of gastric bypass surgery. She recently moved to [place], she recalls a remote right hip surgery that she had about 10 years ago for a bone spur . She is not sure what type of surgery she had. Patient is concerned as she has a vacation coming up during which she will be driving for hours. She is worried about having pain during the car trip. 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 We discussed getting some lumbar films for further evaluation. We discussed trying an oral prednisone taper which should help if she does have discomfort during the upcoming trip. Ms. Domenica Boswell was advised as to contrast therapies and/or to take analgesics/anti-inflammatories as needed and all contraindications were reviewed. OBJECTIVE: Ms. Domenica Boswell is a pleasant 68 year old in no apparent distress. Gen:Wt 190 lb (86.2kg) nl development, non obese, no deformities ENT: Normocephalic, normal hearing, moist mucosa CV: Pulses:Radial= 2+ and symmetric, capillary refill < 2 secs, no peripheral edema/varicosities Skin: no rash, bruising or lesions. Good turgor. Psych: cooperative and appropriate, alert and oriented x 3, good mood and affect. Musculoskeletal: HIP EXAM: Right: ROM: Extension: full extension Flexion: 110 degrees Internal Rotation: 35 degrees External Rotation: 35 degrees Abduction: 35 degrees Adduction: 30 degrees Strength: Pain with resisted abduction and Pain with resisted hip flexion Palpation: Tenderness over right greater trochanter and SI joint Log roll: non-painful. Straight leg raise: Negative Neurovascular Status: Sensation Intact, Moves foot and ankle up AND down, and 2+ dorsalis pedis Imaging: * * *Final Report* * * DATE OF EXAM: May 15 2023 1:36PM YARI [id number] - XR LUMBAR 3V AP/LAT/L5-S1 / PROCEDURE REASON: M25.551-Pain in right hip * * * * Physician Interpretation * * * * Examination: XR LUMBAR 3V AP/LAT/L5-S1, XR HIP 3V PELV+ AP/LAT RT History: Pain in right hip Technique: XR LUMBAR 3V AP/LAT/L5-S1, XR HIP 3V PELV+ AP/LAT RT Comparison: None RESULT: AP pelvis and 2 coned-down views of the right hip reveal mild degenerative change, osteophytosis and joint space narrowing. No fracture or focal bony abnormality. Normal alignment. Diffuse osteopenia. SI joints appear unremarkable 5 nonrib-bearing lumbar type vertebrae. For numbering purposes, L4-5 is at the level of iliac crest. Mild posterior position of L2 with respect to L3. Mild/moderate disc space narrowing at L1-2 and L2-3. Degenerative change involving the posterior elements from L3 through S1. No fracture or focal bony abnormality. Levoscoliosis of 15 degrees in the mid lumbar region. IMPRESSION IMPRESSION: DEGENERATIVE CHANGES DESCRIBED Bingo Worker: PSCB Transcribe Date/Time: May 15 2023 4:48P Dictated by : PENNY REEDER MD This examination was interpreted and the report reviewed and electronically signed by: PENNY REEDER MD on May 15 2023 4:53PM EST Supporting Subjective Information Below: Past Surgical History: PAST SURGICAL HISTORY Procedure Laterality Date PAST SURGICAL HISTORY OF Tonsillectomy PAST SURGICAL HISTORY OF 2002 Gastric bypass PAST SURGICAL HISTORY OF Hysterectomy PAST SURGICAL HISTORY OF breast augmentation/abdominalplasty Medications: Current Outpatient Medications Medication Sig levothyroxine (SYNTHROID) 125 mcg tablet Take 1 tablet by mouth daily before breakfast. Take 125 mcg M/W/F/S/Sun, Take 150 mcg T/ oxyCODONE-acetaminophen (PERCOCET) 5-325 mg tablet Take 1 tablet by mouth every 8 hours as needed for pain. CLOBETASOL PROPIONATE (CLOBETASOL TOPICAL) Apply to affected area as needed. CREAM traZODone (DESYREL) 100 mg tablet Take 100 mg by mouth daily at bedtime. PNV WITH CA#74/IRON/FOLIC ACID ( LOW IRON ORAL) Take by mouth once daily. (more content not included)... [facility] 05-15-2023 Note HNO ID: [id number] Author: Kiera Alba RT(R) Service: ? Author Type: Technologist Type: Progress Notes Filed: 05/15/2023 12:45 PM Note Text: Radiology Service Progress Note PATIENT NAME: Domenica Boswell DATE OF SERVICE: May 15, 2023 TIME: 12:45 PM PATIENT IDENTITY VERIFICATION COMPLETED USING TWO (2) IDENTIFIERS: Name and Date of confirmed by patient verbally. FALL SCREENING: Has the patient had 2 falls in the last year or 1 fall with injury or currently using an Ambulatory Assistive Device (Walker, Cane, Wheelchair, Crutches, etc.)? No PATIENT GENDER DATA: Female. status: : No status: N/A PATIENT RELEVANT IMPLANT DATA REVIEWED: Not Applicable RADIOLOGY DEPARTMENT: General X-ray: Exam(s) Completed: Pelvis X-Ray: Pelvis with Hip Right PERIPHERAL IV DATA: Not applicable SIGNED BY: RT Rabia(R) May 15, 2023 12:45 PM [facility] 05-15-2023 Note HNO ID: [id number] Author: Kiera Alba RT(R) Service: ? Author Type: Technologist Type: Progress Notes Filed: 05/15/2023 1:37 PM Note Text: Radiology Service Progress Note PATIENT NAME: Domenica Boswell DATE OF SERVICE: May 15, 2023 TIME: 1:36 PM PATIENT IDENTITY VERIFICATION COMPLETED USING TWO (2) IDENTIFIERS: Name and Date of confirmed by patient verbally. FALL SCREENING: Has the patient had 2 falls in the last year or 1 fall with injury or currently using an Ambulatory Assistive Device (Walker, Cane, Wheelchair, Crutches, etc.)? No PATIENT GENDER DATA: Female. status: : No status: N/A PATIENT RELEVANT IMPLANT DATA REVIEWED: Not Applicable RADIOLOGY DEPARTMENT: General X-ray: Exam(s) Completed: Spine X-Ray(s): Lumbar AP / LAT / L5-S1 PERIPHERAL IV DATA: Not applicable SIGNED BY: Kiera Alba RT(R) May 15, 2023 1:36 PM [facility] 05-15-2023 History of Presen t illness Narrative Gabriela Weeks PA-C Department of Orthopaedics Orthopaedics [address] [address] Dept: [phone] May 15, 2023 CHIEF COMPLAINT: New and Pain of the Right Hip Ms. Domenica Boswell is a 68 year old female who presents with a few episodes of right hip pain. Pain occurs mainly after she drives for long periods of time, drive longer than 30 minutes. She has had 2 episodes where she gets pain along the right groin, lateral aspect of the right hip and down to the right knee and right lyman. Not getting pain with any other activities. No issues with walking. Patient cannot tolerate oral NSAIDs as she has a history of gastric bypass surgery. She recently moved to [place], she recalls a remote right hip surgery that she had about 10 years ago for a bone spur . She is not sure what type of surgery she had. Patient is concerned as she has a vacation coming up during which she will be driving for hours. She is worried about having pain during the car trip. 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 We discussed getting some lumbar films for further evaluation. We discussed trying an oral prednisone taper which should help if she does have discomfort during the upcoming trip. Ms. Domenica Boswell was advised as to contrast therapies and/or to take analgesics/anti-inflammatories as needed and all contraindications were reviewed. OBJECTIVE: Ms. Domenica Boswell is a pleasant 68 year old in no apparent distress. Gen:Wt 190 lb (86.2kg) nl development, non obese, no deformities ENT: Normocephalic, normal hearing, moist mucosa CV: Pulses:Radial= 2+ and symmetric, capillary refill < 2 secs, no peripheral edema/varicosities Skin: no rash, bruising or lesions. Good turgor. Psych: cooperative and appropriate, alert and oriented x 3, good mood and affect. Musculoskeletal: HIP EXAM: Right: ROM: Extension: full extension Flexion: 110 degrees Internal Rotation: 35 degrees External Rotation: 35 degrees Abduction: 35 degrees Adduction: 30 degrees Strength: Pain with resisted abduction and Pain with resisted hip flexion Palpation: Tenderness over right greater trochanter and SI joint Log roll: non-painful. Straight leg raise: Negative Neurovascular Status: Sensation Intact, Moves foot and ankle up & down, and 2+ dorsalis pedis Imaging: * * *Final Report* * * DATE OF EXAM: May 15 2023 1:36PM YARI [id number] - XR LUMBAR 3V AP/LAT/L5-S1 / PROCEDURE REASON: M25.551-Pain in right hip * * * * Physician Interpretation * * * * Examination: XR LUMBAR 3V AP/LAT/L5-S1, XR HIP 3V PELV+ AP/LAT RT History: Pain in right hip Technique: XR LUMBAR 3V AP/LAT/L5-S1, XR HIP 3V PELV+ AP/LAT RT Comparison: None RESULT: AP pelvis and 2 coned-down views of the right hip reveal mild degenerative change, osteophytosis and joint space narrowing. No fracture or focal bony abnormality. Normal alignment. Diffuse osteopenia. SI joints appear unremarkable 5 nonrib-bearing lumbar type vertebrae. For numbering purposes, L4-5 is at the level of iliac crest. Mild posterior position of L2 with respect to L3. Mild/moderate disc space narrowing at L1-2 and L2-3. Degenerative change involving the posterior elements from L3 through S1. No fracture or focal bony abnormality. Levoscoliosis of 15 degrees in the mid lumbar region. IMPRESSION IMPRESSION: DEGENERATIVE CHANGES DESCRIBED Bingo Worker: JASWINDER Transcribe Date/Time: May 15 2023 4:48P Dictated by : PENNY REEDER MD This examination was interpreted and the report reviewed and electronically signed by: PENNY REEDER MD on May 15 2023 4:53PM EST Supporting Subjective Information Below: Past Surgical History: PAST SURGICAL HISTORY Procedure Laterality Date PAST SURGICAL HISTORY OF Tonsillectomy PAST SURGICAL HISTORY OF 2001 Gastric bypass PAST SURGICAL HISTORY OF Hysterectomy PAST SURGICAL HISTORY OF breast augmentation/abdominalplasty Medications: Current Outpatient Medications Medication Sig levothyroxine (SYNTHROID) 125 mcg tablet Take 1 tablet by mouth daily before breakfast. Take 125 mcg M/W//S/Fri, Take 150 mcg T/Th oxyCODONE-acetaminophen (PERCOCET) 5-325 mg tablet Take 1 tablet by mouth every 8 hours as needed for pain. CLOBETASOL PROPIONATE (CLOBETASOL TOPICAL) Apply to affected area as needed. CREAM traZODone (DESYREL) 100 mg tablet Take 100 mg by mouth daily at bedtime. PNV WITH CA#74/IRON/FOLIC ACID ( LOW IRON ORAL) Take by mouth once daily. venlafaxine (EFFEXOR) 50 mg tablet Take 150 mg by mouth three times daily. CETIRIZINE HCL (ZYRTEC ORAL) Take by mouth as needed. predniSONE (DELTASONE) 10 mg tablet 6 tabs po day 1, then 5 tabs day 2, 4 tabs day 3, 3 tabs day 4, 2 tabs day 5, 1 tab day 6. simvastatin (ZOCOR) 40 mg tablet Take 40 mg by mouth daily at bedtime. CALCIUM PHOSPHATE DIBAS/VIT D3 (VITAMIN D, WITH CALCIUM, ORAL) Take 1.25 Units by mouth as directed. Twice a week Vitamin D 1.25 mg/50,000 units No current facility-administered medications for this visit. Allergies: Modafinil, Nectarine, Nsaids (Non-Steroidal Anti-Inflammatory Drug), and Watermelon ROS: General (negative for fatigue, malaise, weight loss/gain) HEENT (negative for headache, earache, recent vision changes, sinus pain, sore throat) Respiratory (no recent shortness of breath, hemoptysis) CV (negative for chest tightness, palpitations) Musculoskeletal (see HPI) Psych (no depression, anxiety) This note was partially generated using [employer] voice recognition system, and there may be some incorrect words, spellings, and punctuation that were not noted in checking the note before saving. Gabriela Weeks PA-C documented in this encounter [facility] documented in this encounter [facility] note* Diagnosis Pain in right hip- Primary Pain in joint, pelvic region and thigh Radiculopathy, lumbar region Thoracic or lumbosacral neuritis or radiculitis, unspecified documented in this encounter [facility] note* Diagnosis Exposure to COVID-19 virus- Primary Fatigue, unspecified type documented in this encounter [facility] note* Diagnosis COVID-19- Primary Other fatigue documented in this encounter [facility] note* Diagnosis Acquired hypothyroidism- Primary Unspecified hypothyroidism COVID-19 documented in this encounter [facility] note* Diagnosis Pain in right hip Pain in joint, pelvic region and thigh documented in this encounter [facility] note* Diagnosis Chronic low back pain, unspecified back pain laterality, unspecified whether sciatica present- Primary documented in this encounter [facility] note* Diagnosis Chronic low back pain, unspecified back pain laterality, unspecified whether sciatica present- Primary documented in this encounter [facility] note* Diagnosis Full incontinence of feces- Primary documented in this encounter [facility] for referral (narrative)* Diagnostic Procedure Only (Routine) - Pending Review Specialty Diagnoses / Procedures Referred By Angel johnson Referred To Contact XR IMAGING Diagnoses Pain in right hip Procedures XR HIP GENERAL 3V PELV/AP/LAT RIGHT RADEX HIP UNILATERAL WITH PELVIS 2-3 VIEWS Gabriela Weeks PA-C [address] [place] [address] Xr Imaging Referral ID Status Reason Start Date Expiration Date Visits Requested Visits Authorized [id number] Pending Review Auto-Generat ed Referral 05/15/2023 06/12/2024 1 1 [facility] for referral (narrative)* Diagnostic Procedure Only (Routine) - Closed Specialty Diagnoses / Procedures Referred By Angel johnson Referred To Contact XR IMAGING Diagnoses Pain in right hip Procedures XR LUMBAR GENERAL 3V AP/LAT/L5-S1 RADEX SPINE LUMBOSACRAL 2/3 VIEWS Gabriela Weeks PA-C [address] [place] [address] Xr Imaging Referral ID Status Reason Start Date Expiration Date V isits Requested Visits Authorized [id number] Closed Auto-Generate d Referral 05/15/2023 06/13/2024 1 1 [facility] Summary Purpose Family History No Family History Records FoundNo Family History Records FoundNo Family History Records FoundNo Family History Records FoundNo Family History Records Found Advance Directives No Advanced Directives Records FoundNo Advanced Directives Records FoundNo Advanced Directives Records FoundNo Advanced Directives Records FoundNo Advanced Directives Records Found Reason for Referral Specialty Diagnoses / Procedures Referred By Angel t Referred To Contact Diagnoses Fatigue, unspecified type Procedures ESTABLISH WITH PRIMARY CARE NEW PATIENT OFFICE/OUTPATIENT [facility] MDM 60-74 MINUTES Isidra Brown APRN.CAFE WORKER [address] [place] [address] Referral ID Status Reason Start Date Expiration Date Visits Requested Visits Authorized [id number] Pending Review PCP Requested Referral 05/25/2023 05/24/2024 1 1 Additional Source Comments Source Comments (unrecognize d section and content) In the event this informatio n is protected by the Federal Confidentiality of Alcohol and Drug Abuse Patient Records regulations: The Federal rules restrict any use of the information to criminally investigate or prosecute any alcohol or drug abuse patient.[facility] the event this information is protected by the Federal Confidentiality of Alcohol and Drug Abuse Patient Records regulations: The Federal rules restrict any use of the information to criminally investigate or prosecute any alcohol or drug abuse patient.[facility] the event this information is protected by the Federal Confidentiality of Alcohol and Drug Abuse Patient Records regulations: The Federal rules restrict any use of the information to criminally investigate or prosecute any alcohol or drug abuse patient.[facility] the event this information is protected by the Federal Confidentiality of Alcohol and Drug Abuse Patient Records regulations: The Federal rules restrict any use of the information to criminally investigate or prosecute any alcohol or drug abuse patient.[facility] the event this information is protected by the Federal Confidentiality of Alcohol and Drug Abuse Patient Records regulations: The Federal rules restrict any use of the information to criminally investigate or prosecute any alcohol or drug abuse patient.[facility] the event this information is protected by the Federal Confidentiality of Alcohol and Drug Abuse Patient Records regulations: The Federal rules restrict any use of the information to criminally investigate or prosecute any alcohol or drug abuse patient.[facility] the event this information is protected by the Federal Confidentiality of Alcohol and Drug Abuse Patient Records regulations: The Federal rules restrict any use of the information to criminally investigate or prosecute any alcohol or drug abuse patient.[facility] Center[facility] the event this information is protected by the Federal Confidentiality of Alcohol and Drug Abuse Patient Records regulations: The Federal rules restrict any use of the information to criminally investigate or prosecute any alcohol or drug abuse patient.[facility] Center[facility] the event this information is protected by the Federal Confidentiality of Alcohol and Drug Abuse Patient Records regulations: The Federal rules restrict any use of the information to criminally investigate or prosecute any alcohol or drug abuse patient.[facility] Care Teams (unrecognized sec tion and content) Supervisor Anodizing Relationship Specialty Start Date End Date Silvia Person [address] [place] [address] PCP - General Family Medicine 03/11/16 Supervisor Anodizing Relationship Specialty Start Date End Date Silvia Person [address] [place] [address] PCP - General Family Medicine 03/11/16 Supervisor Anodizing Relationship Specialty Start Date End Date Nicole Calixto MD [address] [facility] [address] [place], [place] [address] PCP - General Family Medicine 05/28/23 Supervisor Anodizing Relationship Specialty Start Date End Date Nicole Calixto MD [address] [facility] [place] [address] PCP - General Family Medicine 05/28/23 Supervisor Anodizing Relationship Specialty Start Date End Date Nicole Calixto MD [address] [facility] [place] [address] PCP - General Family Medicine 05/28/23 Supervisor Anodizing Relationship Specialty Start Date End Date Nicole Calixto MD [address] [facility] [address] [place], [place] [address] PCP - General Family Medicine 05/28/23 Supervisor Anodizing Relationship Specialty Start Date End Date Nicholas Cannon DO [address] [place], [place] [address] PCP - General Family Medicine 09/17/23 INFORMATION SOURCE (unrecogn ized section and content) DATE CREATED AUTHOR AUTHOR'S ORGANIZ ATION 05/27/[address] [facility] DATE CREATED AUTHOR AUTHOR'S ORGANIZ ATION 06/07/2023 [facility] DATE CREATED AUTHOR AUTHOR'S ORGANIZ ATION 09/19/2023 [facility] DATE CREATED AUTHOR AUTHOR'S ORGANIZ ATION 09/27/2023 [facility] Reason for Visit (unrecogniz ed section and content) Specialty Diagnoses / Procedures Referred By Contac t Referred To Contact Physical Therapy / PHYSICAL THERAPY Diagnoses back pain Procedures NEW RS PT SPINE Self [facility] Referral ID Status Reason Start Date Expiration Date V isits Requested Visits Authorized [id number] Authorized 04/05/2023 10/05/2023 30 30 Reason Comments New Pain Reason Comments Viral Syndrome Tired, loss of appet ite. Started yesterday was in bed all day. Reason Comments Fatigue Specialty Diagnoses / Procedures Referred By Contac t Referred To Contact FAMILY MEDICINE Diagnoses Fatigue, unspecified type Procedures ESTABLISH WITH PRIMARY CARE NEW PATIENT OFFICE/OUTPATIENT [facility] 60-74 MINUTES Isidra Brown APRN.CAFE WORKER [address] [place] [address] [facility] [address] [place] [address] Referral ID Status Reason Start Date Expiration Date Visits Requested Visits Authorized [id number] Pending Review PCP Requested Referral 05/25/2023 05/24/2024 1 1 Reason Comments Results Reason Comments PT Eval Reason Comments Consult New patient FOR RECORDS PERTAINING TO PATIENTS WHO ARE OR HAVE BEEN ENROLLED IN A CHEMICAL DEPENDENCY/SUBSTANCEABUSE PROGRAM, SOME INFORMATION MAY BE OMITTED. This clinical summary was aggregated from multiple sources. Caution should be exercised in using it in the provision of clinical care. This summary normalizes information from multiple sources, and as a consequence, information in this document may materially change the coding, format and clinical context of patient data. In addition, data may be omitted in some cases. CLINICAL DECISIONS SHOULD BE BASED ON THE PRIMARY CLINICAL RECORDS. [facility] [employer] provides no warranty or guarantee of the accuracy or completeness of information in this document.
[2023-11-04 15:08] LABS: Absolute Lymphocyte Count 1.54 X10^3/uL (0.83-4.51); Absolute Neutrophil Count 4.1 X10^3/uL (2.0-7.7); Basophil# 0.04 X10^3/uL; Basophil% 0.6 % (0-1); Eosinophil# 0.23 X10^3/uL; Eosinophils% 3.6 % (0-5); Hematocrit 38.9 % (37-47); Hemoglobin 12.8 g/dL (12.0-15.0); Lymphocyte # 1.54 X10^3/ul (0.83-4.51); Lymphocyte % 23.9 % (19-41); Mean Corp Hgb Conc 32.9 g/dL (32-36); Mean Corpuscular Hgb 31.1 pg (27.0-32.0); Mean Corpuscular Volume 94.6 fL (81-99); Mean Platelet Vol. 9.2 fl (6.2-12.0); Monocyte# 0.51 X10^3/uL; Monocyte% 7.9 % (0-10); NRBC Flagged by Analyzer 0 % (0-5); Neutrophil # 4.11 X10^3/uL (2.7-7.7); Neutrophil % 63.8 % (47-70); Platelet Count 230 K/mm3 (150-450); RBC Distribution Width CV 13.4 % (11.6-14.6); RBC Distribution Width SD 46.7 fl (35.1-43.9); Red Blood Count 4.11 M/mm3 (4.2-5.4); White Blood Count 6.4 K/mm3 (4.4-11.0)
[2023-11-04 15:59] LABS: Vitamin B12 386 pg/mL (211-911); Vitamin D,25 Hydroxy 33.9 ng/mL
[2023-11-04 16:06] LABS: Hemoglobin A1c 5.5 % (3.8-5.6)
[2023-11-04 16:15] LABS: AST(SGOT) 21 U/L (15-37); Alanine Aminotransfer ALT/SGPT 26 U/L (13-56); Albumin, Serum 3.5 g/dL (3.2-5.0); Alkaline Phosphatase 130 U/L (45-117); Anion Gap 5 (5-15); BUN 12 mg/dL (7-18); BUN/Creat Ratio 15.4 RATIO (10-20); Calcium,Total 9.2 mg/dL (8.5-10.1); Chloride 106 mmol/L (98-107); Cholesterol 259 mg/dL (200); Creatinine, Serum 0.78 mg/dL (0.55-1.02); EST Glomerular Filtration Rate 77 mL/min (>60); Est Glom Filt Rate - Afr Amer 94 mL/min (>60); Ferritin 48 ng/mL (8-252); Globulin 3.5 g/dL (2.2-4.2); Glucose 95 mg/dL (74-106); High Density Lipoprotein 109 mg/dL; Potassium 3.6 mmol/L (3.5-5.1); Sodium Level 138 mmol/L (136-145); Triglycerides 125 mg/dL; Very Low Density Lipoprotein 25 mg/dL (5-40)
== END | disposition home or self-care (01) ==
LOC: MTLAB 11:30
PROVIDERS: PCP Family Medicine; Referring Provider Family Medicine; Visit Provider Family Medicine
DX: R53.83 Other fatigue (principal); E03.9 Hypothyroidism, unspecified; E66.9 Obesity, unspecified; Z68.32 Body mass index [BMI] 32.0-32.9, adult; K91.2 Postsurgical malabsorption, not elsewhere classified; Z98.84 Bariatric surgery status
CPT/HCPCS: 36415; 80053; 80061; 82306; 82607; 82728; 83036; 85025

== ENCOUNTER → 2023-11-11 | Outpatient (CLI) | payer MEDICARE, SELFPAY ==
[2023-11-11 18:17] LABS: T4 Free Direct 1.15 ng/dL (0.76-1.46); Thyroid Stim Hormone (TSH) 0.16 uIU/mL (0.358-3.74)
--- OUTSIDE RECORDS SUMMARY | 2023-11-11 19:30 | XMS RPT_ITS | CCD ---
Author Name Unknown Address [address] [place] [address] Organization [facility] Care Team Providers Care Barrel Waterer Name Role Phone Silvia Person Primary Care Provider GABRIELA WEEKS Referring Unavailable SILVIA PERSON Primary Care Unavail able Unavailable Primary Care Provider UnavailSLAVA Romero Referring Unavailable SLAVA VERGARA Attending Unavailable Nicole Calixto MD Primary Care Provider GABRIELA WEEKS Referring Unavailable NICOLE CALIXTO Primary Care Unavailable DIXIE WEEKSDRA Referring Unavailable NICOLE CALIXTO Primary Care Unavailable Nicholas Cannon DO Primary Care Provider [phone] NICHOLAS CANNON Primary Care Unavailable FLAVIO BRANDT Attending Unavaila Nicholas Maciel DO Primary Care Provider [phone] APOLINAR URBAN Attending Unavailable NICOLE CALIXTO Primary Care Unavailable CLAUDETTE CARTER Referring Unavailable NICOLE CALIXTO Primary Care Unavailable CLAUDETTE CARTER Attending Unavailable CLAUDETTE CARTER Primary Care Unavailable ISIDRA BROWN Referring Unavailable SILVIA PERSON Primary Care Unavail able GABRIELA WEEKS Attending Unavailable SILVIA PERSON Primary Care Unavail able APOLINAR URBAN Attending Unavailable NICOLE CALIXTO Primary Care Unavailable APOLINAR URBAN Attending Unavailable NICOLE CALIXTO Primary Care Unavailable Allergies Allergy Classification Reported Allergen(s) Allergy Type Date of Onset Reaction(s) Facility (13 sources) modafinil; Translations: [MODAFINIL] Drug Allergy 09-13-2011 Other: See Comments [facility] (13 sources) Non-steroidal anti-inflammator y agent; Translations: [NSAIDS (NON-STEROIDAL ANTI-INFLAMMATOR Y DRUG)] Drug Allergy 12-30-2017 Other: See Comments [facility] (17 sources) watermelon preparation; Translations: [WATERMELON] Drug Allergy 12-30-2017 Other: See Comments [facility] (13 sources) Nectarine; Translations: [NECTARINE] Drug Allergy 12-30-2017 Other: See Comments [facility] (4 sources) modafinil Drug Allergy 09-13-2011 [facility] (4 sources) Non-steroidal anti-inflammator y agent Drug Allergy 12-30-2017 [facility] Medications Current Medications Medication Drug Class(es) Dates Sig (Normalized) Sig (Original) cholecalciferol 0.05 mg oral tablet (1 source) Vitamin D Start: 10-19-2018 take 1 tablet by mouth once daily cholecalciferol (VITAMIN D-3) 50 mcg (2,000 unit) tablet Take 1 tablet (2,000 Units total) by mouth daily. 0 10/19/2018 Active prazosin 1 mg oral capsule (1 source) alpha-Adrenergi c Malcolm Start: 02-14-2021 take 1 capsule by mouth once daily prazosin (MINIPRESS) 1 mg capsule Take 1 capsule (1 mg total) by mouth daily. 0 02/14/2021 Active prenat.vits,bhanu,min-i venkat-folic tablet (1 source) take 1 tablet by mouth once daily prenat.vits,bhanu,min- iron-folic tablet Take 1 tablet by mouth daily. 0 Active Completed/Discontinued Medications Medication Drug Class(es) Dates Sig (Normalized) Sig (Original) acetaminophen 325 mg / oxyCODONE hydrochloride 5 mg oral tablet (15 sources) Opioid Agonist Start: 02-22-2022 take 1 tablet by mouth every eight hours as needed oxyCODONE-acetami nophen (PERCOCET) 5-325 mg tablet Take 1 tablet by mouth every 8 hours as needed for pain. 0 02/22/2022 Active Problems Active Problems Problem Classification Problem Date [...] Episodic Other nutritional; endocrine; and metabolic disorders (10 sources) Obese class I; Translations: [Obesity, unspecified] Onset: 02-22-2022 02-22-2022 Chronic Residual codes; unclassified (1 source) Pain, unspecified; Translations: [Pain] Onset: 05-15-2023 Episodic Spondylosis; intervertebral disc disorders; other back problems (5 sources) Lumbar radiculopathy; Translations: [Radiculopathy, lumbar region] Onset: 06-04-2023 05-15-2023 Episodic Thyroid disorders (12 sources) Acquired hypothyroidism; Translations: [Hypothyroidism, unspecified] Onset: 02-22-2022 02-22-2022 Chronic Unclassified (1 source) Other low back pain; Translations: [Other low back pain] Onset: 06-04-2023 Viral infection (3 sources) Disease caused by 2019-nCoV; Translations: [COVID-19] 05-26-2023 Episodic Viral infection (2 sources) COVID-19; Translations: [COVID-19] Onset: 05-26-2023 Past or Other Problems Problem Classification Problem Date Documented Da te Episodic/Chronic Diabetes mellitus without complication (10 sources) Prediabetes; Translations: [Prediabetes] Onset: 02-22-2022 02-22-2022 Episodic Malaise and fatigue (6 sources) Fatigue; Translations: [Other fatigue] Onset: 05-26-2023 05-25-2023 Episodic Other gastrointestinal disorders (10 sources) History of bypass of stomach; Translations: [Bariatric surgery status] Onset: 02-22-2022 02-22-2022 Episodic Results Test Name Value Interpretation Reference Range Facil ity Vital Signs Date Time Vital Sign Value Performing Clinician Faci lity 09-17-2023 10:27-0500 Body height 160 cm Flavio Brandt MD Work Phone: [employer] 09-17-2023 10:27-0500 Body mass index (BMI) [Ratio] 32.24 kg/m2 Flavio Brandt MD Work Phone: [employer] 09-17-2023 10:27-0500 Body weight 82.56 kg Flavio Brandt MD Work Phone: [employer] 09-17-2023 10:27-0500 Diastolic blood pressure 80 mm[Hg] Flavio Brandt MD Work Phone: [employer] 09-17-2023 10:27-0500 Heart rate 75 /min Flavio Brandt MD Work Phone: [employer] 09-17-2023 10:27-0500 Systolic blood pressure 141 mm[Hg] Flavio Brandt MD Work Phone: [employer] 05-26-2023 19:17-0400 Heart rate 91 /min Slava Vergara MD Work Phone: [employer] 05-26-2023 18:44-0400 Body temperature 97.7 [degF] Slava Vergara MD Work Phone: [employer] 05-26-2023 18:44-0400 Diastolic blood pressure 74 mm[Hg] Slava Vergara MD Work Phone: [employer] 05-26-2023 18:44-0400 Respiratory rate 20 /min Slava Vergara MD Work Phone: [employer] 05-26-2023 18:44-0400 SaO2% (BldA) [Mass fraction] 95 % Slava Vergara MD Work Phone: [employer] 05-26-2023 18:44-0400 Systolic blood pressure 126 mm[Hg] Slava Vergara MD Work Phone: [employer] 05-25-2023 14:34-0400 Body height 157.5 cm Isidra Brown SALES MARKET LEADER.[employer]IDENT [employer] Work Phone: [facility] 05-25-2023 14:34-0400 Body temperature 97.5 [degF] Isidra Brown SALES MARKET LEADER.[employer]IDENT CARE AID Work Phone: [facility] 05-25-2023 14:34-0400 Body weight 85.28 kg Isidra Brown SALES MARKET LEADER.RESIDENT CARE AID Work Phone: [facility] 05-25-2023 14:34-0400 Diastolic blood pressure 84 mm[Hg] Isidra Brown SALES MARKET LEADER.RESIDENT CARE AID Work Phone: [facility] 05-25-2023 14:34-0400 Heart rate 87 /min Isidra Brown SALES MARKET LEADER.RESIDENT CARE AID Work Phone: [facility] 05-25-2023 14:34-0400 Respiratory rate 16 /min Isidra Brown SALES MARKET LEADER.RESIDENT CARE AID Work Phone: [facility] 05-25-2023 14:34-0400 SaO2% (BldA) [Mass fraction] 98 % Isidra Brown SALES MARKET LEADER.[employer]IDENT CARE AID Work Phone: [facility] 05-25-2023 14:34-0400 Systolic blood pressure 144 mm[Hg] Isidra Brown SALES MARKET LEADER.RESIDENT CARE AID Work Phone: [facility] 05-15-2023 12:58-0400 Body weight 86.18 kg Gabriela Weeks PA-C Work Phone: [facility] Encounters Encounter Date Encounter Type Care Provider Facility Start: 11-06-2023 Telephone encounter Teresa roy SALES MARKET LEADER.[employer]IDENT C[employer] AID Work Phone: [facility] Start: 09-22-2023 End: 09-22-2023 ambulatory [facility] Facility:[facility] Start: 09-17-2023 End: 09-17-2023 ambulatory NICHOLAS CANNON [facility] Start: 09-17-2023 End: 09-17-2023 Office outpatient new 45 minutes Flavio Brandt MD Work Phone: [facility] Procedures Date Procedure Procedure Detail Performing Clinician [...] MD Work Phone: Start: 02-26-2023 Mammography Gabriela lauren PA-C Work Phone: Start: 01-07-2023 Lipid 1996 panel - S stephen or Plasma Claudette Santiago SALES MARKET LEADER.[employer]IDENT [employer] Work Phone: Start: 01-10-2022 Mammography Gabriela lauren PA-C Work Phone: Plan of Treatment Date Care Activity Detail Author Start: 01-08-2028 Lipid 1996 panel - Serum or Plasma Lipid Screening [facility] Start: 01-08-2028 Lipid panel Lipid Screening [facility] Start: 01-08-2028 LIPID SCREEN LIPID SCREEN [facility] Start: 07-15-2027 DTaP,Tdap,and Td Vaccines (2 - Td or Tdap) DTaP,Tdap,and Td Vaccines (2 - Td or Tdap) [facility] Start: 07-15-2027 Urine microalbumin profile [facility] Start: 12-19-2026 LIPID SCREEN LIPID SCREEN [facility] Start: 05-26-2026 Diabetes Screening Diabetes Screening [facility] Start: 01-07-2026 Diabetes Screening Diabetes Screening [facility] Start: 12-19-2024 DIABETES SCREEN DIABETES SCREEN [facility] Start: 12-19-2024 Diabetes Screening Diabetes Screening [facility] Start: 05-28-2024 ANNUAL PCP TEAM CHRONIC DISEASE VISIT ANNUAL PCP TEAM CHRONIC DISEASE VISIT [facility] Start: 05-26-2024 Thyroid stimulating hormone measurement TSH Level [facility] Start: 02-27-2024 Mammography [facility] Start: 02-27-2024 Screening for malignant neoplasm of breast Mammogram Screening [facility] Start: 10-06-2023 Advance Directive Discussion Advance Directive Discussion [facility] Start: 10-06-2023 Depression Assessment Depression Assessment [facility] Start: 09-17-2023 Diabetes: Annual Urine Albumin-Creatinine Ratio (uACR) Diabetes: Annual Urine Albumin-Creatinine Ratio (uACR) [facility] Start: 09-17-2023 Hemoglobin A1c measurement Diabetes: Blood Sugar Control Test (HGBA1C) [facility] Start: 08-06-2023 Adolescent depression screening assessment Depression Screening [facility] Start: 08-06-2023 Falls Risk Assessment Falls Risk Assessment [employer] Start: 08-06-2023 Hepatitis C screening Hepatitis C Screening [facility] Start: 08-06-2023 Lipid panel Cholesterol Screening (Lipid Panel) [facility] Start: 08-06-2023 Medicare Annual Wellness Visit Medicare Annual Wellness Visit [facility] Start: 08-06-2023 Screening for malignant neoplasm of breast Breast Cancer Screening [facility] Start: 08-06-2023 Screening for malignant neoplasm of colon Colorectal Cancer Screening: Colonoscopy [facility] Start: 08-06-2023 Screening for osteoporosis Osteoporosis Screening (Bone Density Screening) [facility] Start: 08-06-2023 Social Influencers of Health Screening Social Influencers of Health Screening [facility] Start: 07-21-2023 End: 09-20-2023 Thyrotropin [Units/volume] in Serum or Plasma TSH BLD Lab Routine Acquired hypothyroidism Expected: 07/21/2023, Expires: 09/20/2023 [facility] Work Phone: Immunizations Immunization Date Immunization Notes Care Provider John pickard 07-02-2022 COVID-19 vaccine, ag e 12+ yr, bivalent (PFIZER-BIONTECH) Claudette Santiago SALES MARKET LEADER.[employer]IDENT CARE AID Work Phone: [facility] 07-02-2022 pneumococcal (PCV20) vaccine, 20 valent (PREVNAR 20) Claudette Santiago SALES MARKET LEADER.RESIDENT CARE AID Work Phone: [facility] 06-25-2022 influenza (aIIV4) vaccine, age 65+ yr, quadrivalent, PF (FLUAD QUAD) Claudette Santiago SALES MARKET LEADER.RESIDENT CARE AID Work Phone: [facility] 06-25-2022 influenza virus vacc ine, unspecified formulation Claudette Santiago SALES MARKET LEADER.RESIDENT CARE AID Work Phone: [facility] 01-17-2022 COVID-19 original vaccine, age 12+ yr, monovalent (PFIZER-BIONTECH - COTA TOP) Claudette Santiago SALES MARKET LEADER.RESIDENT CARE AID Work Phone: [facility] 07-27-2021 influenza (aIIV4) vaccine, age 65+ yr, quadrivalent, PF (FLUAD QUAD) Claudette Santiago SALES MARKET LEADER.RESIDENT CARE AID Work Phone: [facility] 12-22-2020 COVID-19 original vaccine, age 12+ yr, monovalent (PFIZER-BIONTECH - PURPLE TOP) Claudette Santiago SALES MARKET LEADER.RESIDENT CARE AID Work Phone: [facility] 12-01-2020 COVID-19 original vaccine, age 12+ yr, monovalent (PFIZER-BIONTECH - PURPLE TOP) Claudette Santiago SALES MARKET LEADER.RESIDENT CARE AID Work Phone: [facility] 07-26-2020 influenza, high dose seasonal, preservative-free Claudette Santiago SALES MARKET LEADER.RESIDENT CARE AID Work Phone: [facility] 09-16-2019 Seasonal, quadrivale nt, recombinant, injectable influenza vaccine, preservative free Claudette Santiago SALES MARKET LEADER.RESIDENT CARE AID Work Phone: [facility] 08-17-2019 zoster vaccine recombinant Claudette Santiago SALES MARKET LEADER.RESIDENT CARE AID Work Phone: [facility] 04-22-2019 zoster vaccine recombinant Claudette Santiago SALES MARKET LEADER.RESIDENT CARE AID Work Phone: [facility] 09-08-2018 influenza, high dose seasonal, preservative-free Claudette Santiago SALES MARKET LEADER.RESIDENT CARE AID Work Phone: [facility] 07-15-2017 influenza, injectabl e, quadrivalent, preservative free Claudette Santiago SALES MARKET LEADER.RESIDENT CARE AID Work Phone: [facility] 07-15-2017 tetanus toxoid, redu sharla diphtheria toxoid, and acellular pertussis vaccine, adsorbed Claudette Santiago SALES MARKET LEADER.RESIDENT CARE AID Work Phone: [facility] 08-09-2016 influenza, injectabl e, quadrivalent, preservative free Claudette Santiago SALES MARKET LEADER.RESIDENT CARE AID Work Phone: [facility] 08-17-2015 influenza, injectabl e, quadrivalent, preservative free Claudette Santiago SALES MARKET LEADER.RESIDENT CARE AID Work Phone: [facility] 07-04-2014 influenza, injectabl e, madin maggy canine kidney, preservative free Claudette Santiago SALES MARKET LEADER.RESIDENT CARE AID Work Phone: [facility] 01-26-2014 zoster vaccine, live Claudette A skins SALES MARKET LEADER.RESIDENT CARE AID Work Phone: [facility] 06-29-2013 influenza, seasonal, injectable, preservative free Claudette Santiago SALES MARKET LEADER.RESIDENT CARE AID Work Phone: [facility] 08-25-2012 influenza, seasonal, injectable Claudette Santiago SALES MARKET LEADER.RESIDENT CARE AID Work Phone: [facility] 06-19-2011 influenza, seasonal, injectable Claudette Santiago SALES MARKET LEADER.RESIDENT CARE AID Work Phone: [facility] Payers Date Payer Category Payer Medicare [id number] 2021 Medicare [id number] 1955 Unknown [id number] Social History Date Type Detail Facility Start: 05-26-2023 End: 09-17-2023 Tobacco smoking status NHIS Never smoked tobacco [facility] Start: 05-20-2022 End: 05-28-2023 Alcohol intake Current drinker of alcohol (finding) [facility] Start: 05-20-2022 End: 08-26-2023 History of Social function [facility] Start: 05-20-2022 End: 08-26-2023 Tobacco use panel [facility] National Score (1-10 0), lower number is lower risk 48 [facility] Start: 1955 Sex Assigned At Not on file [facility] Start: 02-20-2022 Gender identity Identifies as female gender (finding) [facility] Start: 02-20-2022 Sexual orientation Heterosexual (fin ding) [facility] Start: 05-26-2023 End: 09-17-2023 Tobacco use and exposure Smokeless tobacco non-user [facility] Start: 05-16-2023 End: 05-26-2023 Exposure to SARS-CoV-2 (event) Not sure [facility] Are you now , , , , never or living with a partner? [facility] How often do you hav e 6 or more drinks on 1 occasion? Never [facility] (I/We) worried wheth er (my/our) food would run out before (I/we) got money to buy more. Never true [facility] Clinical Notes 05-15-2023 to 11-06-2023 Telephone Encounter - Jackie Gibson LPN - 11/06/2023 12:54 PM ESTTelephone Encounter - Teresa Meng APRN.CNP - 11/06/2023 12:48 PM Caitlin Brandt MD - 09/17/2023 11:39 AM EST Note Date & Type Note Facility 11-06-2023 Miscellaneous Notes Patient notified and voiced understanding. Appointment changed to a virtual visit. Jackie Gibson LPN Virtual visit would be fine. Ziggy, Teresa Meng APRN.RESIDENT CARE AID Name of Caller: Suki Lobato Relationship to patient: patient Last visit in this department: Visit date not found Reason for Call: Other : Can she set up a virtual visit for this appt instead of in person on 11/13/23 Callback number: [phone] Fax Number (if necessary): N/A Additional info if needed (Prior Auth #, Claim #, etc ): N/A Margot Greene documented in this encounter [facility] 09-26-2023 Note HNO ID: [id number] Author: Apolinar Urban PT Service: ? Author [...] OF CARE PLAN OF CARE UPDATE: Assessment: Suki Lobato is discontinued from Physical Therapy services due to maximal benefit. and Patient/Clinician mutual decision to discontinue current plan of care.. Patient was seen for 3 visits from Start of Care Date: 08/26/23 to 09/26/2023 and treatment included: Therapeutic exercise, Manual therapy, and Self-detention management. Goals updated on 09/22/2023. Goals for [...] Stop Time : 1244 Apolinar Urban PT [facility] 09-17-2023 History of Presen t illness Narrative [...] and coordination of care Subjective Patient ID: Suki Lobato is a 68 y.o. female. Chief Complaint Patient presents with Consult New patient HPI 68-year-old patient Mrs. Lobato has been asked to see us by [...] her in writing. documented in this encounter [facility] 09-11-2023 Note HNO ID: [id number] Author: Apolinar Urban, PT Service: ? Author Type: Physical Therapist Type: Progress Notes Filed: 09/11/2023 4:32 PM Note Text: Episode Visit Count: 2 Therapist That Will Accept/Oversee The Plan Of Care: Apolinar Urban Start of Care Date: 08/26/23 Onset Date: 08/19/23 Plan of Care Certification Date: 08/26/23 Next Certification Due Date: 10/26/23 REHABILITATION AND SPORTS THERAPY PHYSICAL THERAPY TREATMENT NOTE ASSESSMENT: Suki Lobato tolerated the session with decreased symptoms. She [...] Stop Time : 1315 Apolinar Urban, PT [facility] 09-11-2023 History of Presen t illness Narrative Episode Visit Count: 2 Therapist That Will Accept/Oversee The Plan Of Care: Apolinar Urban Start of Care Date: 08/26/23 Onset Date: 08/19/23 Plan of Care Certification Date: 08/26/23 Next Certification Due Date: 10/26/23 REHABILITATION AND SPORTS THERAPY PHYSICAL THERAPY TREATMENT NOTE ASSESSMENT: Suki Lobato tolerated the session with decreased symptoms. She [...] Stop Time : 1315 Apolinar Urban PT Program_ID:[id number] Access Code: [email or web address] URL: [email or web address] Date: 09-11-2023 Prepared By: Apolinar Urban Program [...] 3 - 3 documented in this encounter [facility] 08-26-2023 Note HNO ID: [id number] Author: Apolinar Urban PT Service: ? Author [...] PHYSICAL THERAPY EVALUATION PLAN OF CARE: Assessment: Suki Lobato presents with chief complaint of chronic back [...] Planned: 8 Planned Treatment Interventions: Therapeutic exercise (45199), Neuromuscular re-education (67409), Manual therapy (37001), Therapeutic activities (23976), Self-detention management (02597), Patient/Family/Caregiver Education, Body Mechanics Training PLAN FOR [...] Mechanics TREATMENT: PT Treatment Interventions: Therapeutic Exercise, Self-Usp Management Evaluation Therapeutic Exercise: 1: *SKC 3x30 sec on R 2: *DKC 3x30 sec 3: *TA bracing 3x10, 5 sec holds 4: *TA (more content not included)... [facility] 08-26-2023 History of Presen t illness Narrative Episode Visit Count: 1 Therapist That Will Accept/Oversee The Plan Of Care: Apolinar Urban Start of Care Date: 08/26/23 Onset Date: 08/19/23 Plan of Care Certification Date: 08/26/23 Next Certification Due Date: 10/26/23 Patient Identified by Name and Date of : Yes REHABILITATION AND SPORTS THERAPY PHYSICAL THERAPY EVALUATION PLAN OF CARE: Assessment: Suki Lobato presents with chief complaint of chronic back [...] Planned: 8 Planned Treatment Interventions: Therapeutic exercise (42057), Neuromuscular re-education (36165), Manual therapy (65638), Therapeutic activities (31478), Self-detention management (54653), Patient/Family/Caregiver Education, Body Mechanics Training PLAN FOR [...] Mechanics TREATMENT: PT Treatment Interventions: Therapeutic Exercise, Self-Usp Management Evaluation Therapeutic Exercise: 1: *SKC 3x30 [...] facilitated with verbal, visual, and tactile cuing. Self-Usp Management: 1: Discussed plan of care, reviewed [...] Stop Time : 1045 Apolinar Urban PT Program_ID:[id number] Access Code: [email or web address] URL: [email or web address] Date: 08-26-2023 Prepared By: Apolinar Urban Program [...] 3 - 10 documented in this encounter [facility] 07-22-2023 Miscellaneous Notes Discussed with patient. She is now using [facility] in [place]. Asking that scripts for both dosages be sent there instead. Hetal Tomlin RN Dose change at virtual visit on 05/28 was to take 125 mcg x 5 days per week and 150 mcg x 2 days per week, so she should take it like this and follow up with her new PCP. Claudette Carter APRN.KASIE Discussed with patient. She states she was told to take 150 mcg 5 days a week and 125 mcg 2 days a week. She is unsure how long she has been on this dosage. Does not take it consistently. In the process of moving to [place]. States she has OV scheduled at end of July with a new PCP in [place]. Please advise on dosage. Hetal Tomlin RN [...] her labs re-drawn at this appointment. Claudette Carter APRN.CNP documented in this encounter [facility] 06-04-2023 Note HNO ID: [id number] Author: Megan Akers RT(R) Service: ? Author Type: Weapons Designer Type: Progress Notes Filed: 06/04/2023 9:59 AM Note Text: Radiology Service Progress Note PATIENT NAME: Suki Lobato DATE OF SERVICE: June 04, 2023 TIME: [...] RT Kristin(R) June 04, 2023 9:58 AM [facility] 06-04-2023 History of Presen t illness Narrative Radiology Service Progress Note PATIENT NAME: Suki Lobato DATE OF SERVICE: June 04, 2023 TIME: [...] 2023 9:58 AM documented in this encounter [facility] 05-28-2023 Note HNO ID: [id number] Author: Claudette Carter APRN.KASIE Service: ? Author Type: Nurse Practitioner Type: Progress Notes Filed: 05/28/2023 2:17 PM Note Text: VIRTUAL VISIT PROGRESS NOTE This is a virtual visit using Face-Me video visit. It required patient-provider interaction for the medical decision making as documented below. I have communicated my name and active licensure. The patient's identity and physical location were verified at the time of this visit. Either the patient or their legal key account representative has been informed of the risks and benefits of -- and alternatives to -- treatment through a remote evaluation and consents to proceed with the evaluation remotely. Suki Lobato is a 68 year old female seen for fatigue and ER follow up. Recently seen in [facility] and the ER, had recent labs showing low TSH and normal T4. Also tested positive for covid, very fatigued. In January her TSH was elevated and her dose was increased to 150 mcg QD. Prior to that, she was taking 125 mcg 5 days per week and 150 mcg 2 days. In July, she is moving to [place], needs to establish care with new PCP, [...] Father Ischemic Heart Disease Father at [address] [place] Social History Tobacco Use Smoking status: Never [...] PRN, red flag symptoms to ER. Claudette Carter APRN.[facility] 05-28-2023 History of Presen t illness Narrative VIRTUAL VISIT PROGRESS NOTE This is a virtual visit using Face-Me video visit. It required patient-provider interaction for the medical decision making as documented below. I have communicated my name and active licensure. The patient's identity and physical location were verified at the time of this visit. Either the patient or their legal key account representative has been informed of the risks and benefits of -- and alternatives to -- treatment through a remote evaluation and consents to proceed with the evaluation remotely. Suki Lobato is a 68 year old female seen for fatigue and ER follow up. Recently seen in [facility] [place] [place] and the ER, had recent labs showing low TSH and normal T4. Also tested positive for covid, very fatigued. In January her TSH was elevated and her dose was increased to 150 mcg QD. Prior to that, she was taking 125 mcg 5 days per week and 150 mcg 2 days. In July, she is moving to [place], needs to establish care with new PCP, [...] Father Ischemic Heart Disease Father at [address] [place] Social History Tobacco Use Smoking status: Never [...] PRN, red flag symptoms to ER. Claudette Carter APRN.KASIE documented in this encounter [facility] 05-26-2023 Hospital Discharg e instructions Slava Vergara MD - 05/26/2023 10:50 PM EDT You have been seen in the Emergency Department for COVID-19 and fatigue. No antibiotics are required, no steroids are required. Please wear a mask, make sure to wash your hands frequently, get plenty of rest. After a visit to the Emergency Department, follow-up is important. You should follow-up with [facility] so that you can get established with a primary care physician Return to the ED if you develop chest pain, palpitations, shortness of breath, decreased exercise tolerance, you feel weak feel faint or pass out, lightheaded, nausea vomiting or sweating, or if any new signs, symptoms, or concerns arise. The following attachments cannot be sent through Care Everywhere.COVID-19 Overview (Qatari)Fatigue (Qatari)documented in this encounter [facility] 05-26-2023 Emergency department Note was at bedside and left room. Pt was seen walking out of her room and down hallway by this RN then was noted on surveillance camera exiting ED and ambulating into parking lot with steady gait. Pt left prior to receiving discharge instructions. Hilda Bush RN 05/26/23 [id number] [facility] 05-26-2023 Emergency department Note was at bedside [...] not included. EMERGENCY DEPARTMENT ENCOUNTER Pt Name: Suki Lobato Birthdate 1955 Date of evaluation: 05/26/2023 ED Provider: Slava Vergara MD CHIEF COMPLAINT No chief complaint on file. HISTORY OF PRESENT ILLNESS (Location/Symptom, Timing/Onset, Context/Setting, Quality, Duration, Modifying Factors, Severity) Note limiting factors. I wore appropriate PPE for the entirety of this encounter. HPI Suki Lobato is a 68 y.o. who presents to [...] able to answer questions and follow commands medicare biller II-XII normal Normal 5/5 strength and normal [...] In compliance with this authorization, please visit www.fda.gov/media/271743/downloa d or www.fda.gov/media/078099/downloa d to access the applicable information sheets. [...] My interpretation can be found in the [employer] EKG system. Normal sinus rhythm. No acute [...] is also vaccinated against COVID-19. Therefore her [facility] COVID-19 24-hour decompensation score [...] the risk of additional testing/imaging or hospitalization. [id number] Upon reassessment, patient is hemodynamically stable, no [...] have also given her contact information for [facility] so that she can get established with a PCP. Results of workup and plan of care discussed with patient. She indicated understanding. Strict return precautions and anticipatory guidance given. All questions answered to her satisfaction. Patient discharged home in stable condition. Disposition: Discharged CRITICAL CARE TIME FINAL IMPRESSION 1. COVID-19 2. Other fatigue DISPOSITION Discharge 05/26/2023 07:19:27 PM PATIENT REFERRED TO: [facility] [address] [facility] [phone] Schedule an appointment as soon as possible [...] is within reach. documented in this encounter [facility] 05-26-2023 Note NOTE: This result is for medical treatment only. Analysis performed using non-forensic procedures. [facility] 05-26-2023 Emergency department Note Pt does not want X-ray done, does not find it necessary to do. Taina Guevara LPN 05/26/231941 [facility] 05-26-2023 Emergency department Note Pt states she just took a covid test and does not want to take another one at this time. Taina Guevara LPN 05/26/231929 [facility] 05-26-2023 Emergency department Triage note Pt presents to the ED with fatigue. Pt states she noticed it this past Friday. Pt states she feels overly exhausted. Pt states she thinks it is relevant to her thyroid. Pt was able to walk back to the unit without any difficulty. Pt call light is within reach. [facility] 05-26-2023 Physician Emergency department Note Images from the original note were not included. EMERGENCY DEPARTMENT ENCOUNTER Pt Name: Suki Lobato Birthdate 1955 Date of evaluation: 05/26/2023 ED Provider: Slava Vergara MD CHIEF COMPLAINT No chief complaint on file. HISTORY OF PRESENT ILLNESS (Location/Symptom, Timing/Onset, Context/Setting, Quality, Duration, Modifying Factors, Severity) Note limiting factors. I wore appropriate PPE for the entirety of this encounter. HPI Suki Lobato is a 68 y.o. who presents to [...] able to answer questions and follow commands medicare biller II-XII normal Normal 5/5 strength and normal [...] In compliance with this authorization, please visit www.fda.gov/media/619789/downloa d or www.fda.gov/media/034693/downloa d to access the applicable information sheets. [...] My interpretation can be found in the [employer] EKG system. Normal sinus rhythm. No acute [...] is also vaccinated against COVID-19. Therefore her [facility] COVID-19 24-hour decompensation score [...] the risk of additional testing/imaging or hospitalization. [id number] Upon reassessment, patient is hemodynamically stable, no [...] have also given her contact information for [facility] so that she can get established with a PCP. Results of workup and plan of care discussed with patient. She indicated understanding. Strict return precautions and anticipatory guidance given. All questions answered to her satisfaction. Patient discharged home in stable condition. Disposition: Discharged CRITICAL CARE TIME FINAL IMPRESSION 1. COVID-19 2. Other fatigue DISPOSITION Discharge 05/26/2023 07:19:27 PM PATIENT REFERRED TO: [facility] [address] [facility] [phone] Schedule an appointment as soon as possible [...] Medicine Provider Slava Vergara MD 05/27/23 0405 [facility] 05-25-2023 Note HNO ID: [id number] Author: Isidra Brown APRN.[facility] Service: ? Author Type: Nurse Practitioner Type: Progress Notes Filed: 05/25/2023 2:53 PM Note Text: This note was created using Load DynamiXriter. Subjective Suki Lobato is a 68 year old female. HPI by patient: Suki Lobato is a 68 year old presenting to [...] COVID-19 original vaccine, age 12+ yr, monovalent ([employer] - PURPLE TOP) 12/22/2020 Outside Immunization: Pfizer [...] of Onset: (Not Specified) Comment: at [address] [place] Social History Tobacco Use Smoking status: Never [...] isolation in the interim. [facility] If positive you may reach out [...] lung expansion. - (more content not included)... [facility] 05-25-2023 History of Presen t illness Narrative This note was created using [employer] System[employer]. Subjective Suki Lobato is a 68 year old female. HPI by patient: Suki Lobato is a 68 year old presenting to [...] COVID-19 original vaccine, age 12+ yr, monovalent ([employer] - PURPLE TOP) 12/22/2020 Outside Immunization: Pfizer [...] of Onset: (Not Specified) Comment: at 40 [place] Social History Tobacco Use Smoking status: Never [...] isolation in the interim. [facility] If positive you may reach out [...] and good lung expansion. -Stop at the manager front to schedule with primary care to establish [...] which included preparing to see the patient, [id number] patient care, completing clinical documentation, obtaining and/or reviewing separately obtained history, performing a medically appropriate examination, counseling and educating the patient/family/caregiver, and ordering medications, tests, or procedures. This patient encounter involved the screening or treatment of novel coronavirus infection (COVID-19). documented in this encounter [facility] 05-25-2023 Instructions Isidra Brown APRN.CNP - 05/25/2023 [...] isolation in the interim. [facility] If positive you may reach out to primary care to discuss antiviral options. -Drink lots of fluids and get plenty of rest. -Cough/deep breathing education, promote clearing of the airways and good lung expansion. -Stop at the manager front to schedule with primary care to establish care. Needs more of a workup than what is offered in [facility]. -Signs that warrant an ER evaluation: Sudden change/worsening in condition, lethargy, signs of dehydration, fever greater than 102 F that is not responding to Tylenol or ibuprofen (Motrin, Advil), drooling, difficulty swallowing, difficulty breathing, shortness of breath, chest pain, evidence of airway compromise (tripod position, neck extension, retractions), seizures, changes in mental status, or other concerns. documented in this encounter [facility] 05-15-2023 Note HNO ID: [id number] Author: Gabriela Weeks PA-C Service: ? Author Type: Physician Pinmaker Type: Progress Notes Filed: 05/16/2023 8:46 AM Note Text: Gabriela Weeks PA-C Department of Orthopaedics Orthopaedics [address] [address] Dept: [phone] May 15, 2023 CHIEF COMPLAINT: New and Pain of the Right Hip Ms. Suki Lobato is a 68 year old female who [...] gastric bypass surgery. She recently moved to [place], she recalls a remote right hip surgery [...] have discomfort during the upcoming trip. Ms. Suki Lobato was advised as to contrast therapies and/or to take analgesics/anti-inflammatories as needed and all contraindications were reviewed. OBJECTIVE: Ms. Suki Lobato is a pleasant 68 year old in [...] lumbar region. IMPRESSION IMPRESSION: DEGENERATIVE CHANGES DESCRIBED Delicatessen Clerk: PSCB Transcribe Date/Time: May 15 2023 4:48P [...] mouth once daily. (more content not included)... [facility] 05-15-2023 Note HNO ID: [id number] Author: Kiera Alba RT(R) Service: ? Author Type: Technologist Type: Progress Notes Filed: 05/15/2023 12:45 PM Note Text: Radiology Service Progress Note PATIENT NAME: Suki Lobato DATE OF SERVICE: May 15, 2023 TIME: [...] [facility] 05-15-2023 Note HNO ID: [id number] Author: Keira Alba RT(R) Service: ? Author Type: Technologist Type: Progress Notes Filed: 05/15/2023 1:37 PM Note Text: Radiology Service Progress Note PATIENT NAME: Suki Lobato DATE OF SERVICE: May 15, 2023 TIME: [...] PA-C Department of Orthopaedics Orthopaed[facility] [address] [address] Dept: [phone] May 15, 2023 CHIEF COMPLAINT: New and Pain of the Right Hip Ms. Suki Lobato is a 68 year old female who [...] gastric bypass surgery. She recently moved to [place], she recalls a remote right hip surgery [...] have discomfort during the upcoming trip. Ms. Suki Lobato was advised as to contrast therapies and/or to take analgesics/anti-inflammatories as needed and all contraindications were reviewed. OBJECTIVE: Ms. Suki Lobato is a pleasant 68 year old in [...] lumbar region. IMPRESSION IMPRESSION: DEGENERATIVE CHANGES DESCRIBED Delicatessen Clerk: JASWINDER Transcribe Date/Time: May 15 2023 4:48P [...] anxiety) This note was partially generated using Worldrat voice recognition system, and there may be some incorrect words, spellings, and punctuation that were not noted in checking the note before saving. Gabriela Weeks PA-C documented in this encounter [facility] documented in this encounter [facility] note* Diagnosis Pain in right hip- Primary Pain in joint, pelvic region and thigh Radiculopathy, lumbar region Thoracic or lumbosacral neuritis or radiculitis, unspecified documented in this encounter [facility] note* Diagnosis Exposure to COVID-19 virus- Primary Fatigue, unspecified type documented in this encounter [facility] note* Diagnosis COVID-19- Primary Other fatigue documented in this encounter [facility] note* Diagnosis Acquired hypothyroidism- Primary Unspecified hypothyroidism COVID-19 documented in this encounter [facility] note* Diagnosis Pain in right hip Pain in joint, pelvic region and thigh documented in this encounter [facility] note* Diagnosis Chronic low back pain, unspecified back pain laterality, unspecified whether sciatica present- Primary documented in this encounter [facility] note* Diagnosis Chronic low back pain, unspecified back pain laterality, unspecified whether sciatica present- Primary documented in this encounter [facility] note* Diagnosis Full incontinence of feces- Primary documented in this encounter [facility] for referral (narrative)* Diagnostic Procedure Only (Routine) - Pending Review Specialty Diagnoses / Procedures Referred By Angel johnson Referred To Contact XR IMAGING Diagnoses Pain in right hip Procedures XR HIP GENERAL 3V PELV/AP/LAT RIGHT RADEX HIP UNILATERAL WITH PELVIS 2-3 VIEWS Gabriela Weeks PA-C [address] [place] [address] Xr Imaging Referral ID Status Reason Start Date Expiration Date Visits Requested Visits Authorized [id number] Pending Review Auto-Generat ed Referral 05/15/2023 06/12/2024 1 1 [facility] for referral (narrative)* Diagnostic Procedure Only (Routine) - Closed Specialty Diagnoses / Procedures Referred By Angel johnson Referred To Contact XR IMAGING Diagnoses Pain in right hip Procedures XR LUMBAR GENERAL 3V AP/LAT/L5-S1 RADEX SPINE LUMBOSACRAL 2/3 VIEWS Gabriela Weeks PA-C [address] [place] [address] Xr Imaging Referral ID Status Reason Start Date Expiration Date V isits Requested Visits Authorized [id number] Closed Auto-Generate d Referral 05/15/2023 06/13/2024 1 1 [facility] Summary Purpose Family History No Family History [...] ESTABLISH WITH PRIMARY CARE NEW PATIENT OFFICE/OUTPATIENT [facility] MDM 60-74 MINUTES Isidra Brown APRN.[facility] [id number] [place] [address] Referral ID Status Reason Start Date Expiration Date Visits Requested Visits Authorized [id number] Pending Review PCP Requested Referral 05/25/2023 05/24/2024 1 1 Additional Source Comments Source Comments (unrecognize d section and content) In the event this informatio n is protected by the Federal Confidentiality of Alcohol and Drug Abuse Patient Records regulations: The Federal rules restrict any use of the information to criminally investigate or prosecute any alcohol or drug abuse patient.[facility] the event this information is protected by the Federal Confidentiality of Alcohol and Drug Abuse Patient Records regulations: The Federal rules restrict any use of the information to criminally investigate or prosecute any alcohol or drug abuse patient.[facility] the event this information is protected by the Federal Confidentiality of Alcohol and Drug Abuse Patient Records regulations: The Federal rules restrict any use of the information to criminally investigate or prosecute any alcohol or drug abuse patient.[facility] the event this information is protected by the Federal Confidentiality of Alcohol and Drug Abuse Patient Records regulations: The Federal rules restrict any use of the information to criminally investigate or prosecute any alcohol or drug abuse patient.[facility] the event this information is protected by the Federal Confidentiality of Alcohol and Drug Abuse Patient Records regulations: The Federal rules restrict any use of the information to criminally investigate or prosecute any alcohol or drug abuse patient.[facility] the event this information is protected by the Federal Confidentiality of Alcohol and Drug Abuse Patient Records regulations: The Federal rules restrict any use of the information to criminally investigate or prosecute any alcohol or drug abuse patient.[facility] the event this information is protected by the Federal Confidentiality of Alcohol and Drug Abuse Patient Records regulations: The Federal rules restrict any use of the information to criminally investigate or prosecute any alcohol or drug abuse patient.[facility] the event this information is protected by the Federal Confidentiality of Alcohol and Drug Abuse Patient Records regulations: The Federal rules restrict any use of the information to criminally investigate or prosecute any alcohol or drug abuse patient.[facility] the event this information is protected by the Federal Confidentiality of Alcohol and Drug Abuse Patient Records regulations: The Federal rules restrict any use of the information to criminally investigate or prosecute any alcohol or drug abuse patient.[facility] the event this information is protected by the Federal Confidentiality of Alcohol and Drug Abuse Patient Records regulations: The Federal rules restrict any use of the information to criminally investigate or prosecute any alcohol or drug abuse patient.[facility] Care Teams (unrecognized sec tion and content) Barrel Waterer Relationship Specialty Start Date End Date Person Silviamarybeth Crespo [address] [place] [address] PCP - General Family Medicine 03/11/16 Barrel Waterer Relationship Specialty Start Date End Date Marielena Silvia Zak [address] [place] [address] PCP - General Family Medicine 03/11/16 Barrel Waterer Relationship Specialty Start Date End Date Nicole Calixto MD [address] [place], [place] [address] PCP - General Family Medicine 05/28/23 Barrel Waterer Relationship Specialty Start Date End Date Nicole Calixto MD [address] [place], [place] [id number] PCP - General Family Medicine 05/28/23 Barrel Waterer Relationship Specialty Start Date End Date Nicole Calixto MD [address] [place], [place] [address] PCP - General Family Medicine 05/28/23 Barrel Waterer Relationship Specialty Start Date End Date Nicole Calixto MD [address] [place] [address] PCP - General Family Medicine 05/28/23 Barrel Waterer Relationship Specialty Start Date End Date Nicholas Cannon DO [address] [place] [address] PCP - General Family Medicine 09/17/23 Barrel Waterer Relationship Specialty Start Date End Date Nicholas Cannon DO [address] [place] [address] PCP - General Family Medicine 09/22/23 INFORMATION SOURCE (unrecogn ized section and content) DATE CREATED AUTHOR AUTHOR'S ORGANIZ ATION 05/27/2023 [facility] DATE CREATED AUTHOR AUTHOR'S ORGANIZ ATION 06/07/2023 [facility] DATE CREATED AUTHOR AUTHOR'S ORGANIZ ATION 09/19/2023 [facility] DATE CREATED AUTHOR AUTHOR'S ORGANIZ ATION 11/08/2023 [facility] Reason for Visit (unrecogniz ed section and content) Specialty Diagnoses / Procedures Referred By Contac t Referred To Contact Physical Therapy / PHYSICAL THERAPY Diagnoses back pain Procedures NEW RS PT SPINE Self Apolinar Urban, PT Referral ID Status Reason Start Date Expiration Date V isits Requested Visits Authorized [id number] Authorized 04/05/2023 10/05/2023 30 30 Reason Comments New Pain Reason Comments Viral Syndrome Tired, loss of appet ite. Started yesterday was in bed all day. Reason Comments Fatigue Specialty Diagnoses / Procedures Referred By Contac t Referred To Contact FAMILY MEDICINE Diagnoses Fatigue, unspecified type Procedures ESTABLISH WITH PRIMARY CARE NEW PATIENT OFFICE/OUTPATIENT NEW HIGH MDM 60-74 MINUTES Isidra Brown, FIDELINA.[facility] [address] [place] [address] [address] [place] [address] [place] [address] Referral ID Status Reason Start Date Expiration Date Visits Requested Visits Authorized [id number] Pending Review PCP Requested Referral 05/25/2023 05/24/2024 [...] BE BASED ON THE PRIMARY CLINICAL RECORDS. [facility]. provides no warranty or guarantee of the accuracy or completeness of information in this document.
== END | disposition home or self-care (01) ==
LOC: MTLAB 15:58
PROVIDERS: PCP Family Medicine; Referring Provider Family Medicine; Visit Provider Family Medicine
DX: E03.9 Hypothyroidism, unspecified (principal)
CPT/HCPCS: 36415; 84439; 84443

== ENCOUNTER 2023-11-20 08:28 | Day surgery (SDC) | payer MEDICARE, SELFPAY ==
--- NOTE | 2023-11-20 | IMM_PTH ---
PATHOLOGY RESULTS PATIENT: DOMENICA BOSWELL LOC: EN U#:[id number] AGE/SX: 68/F ROOM: RE11/20/[address]: Dr. Manpreet Estrella DO : 1955 BED: DIS: 11/20/2023 SPEC #: [id number] RECD: 11/24/23 13:26 STATUS: TATY REQ #: [id number] JANET: 11/20/23 00:[address]: Manpreet Estrella DEPT: IMMUNOHISTOCHEMISTRY RECD BY: Yasmin Malave ENTERED: 11/24/23 13:27 SP TYPE: IMMUNO OTHR DR: Rhonda Cannon DO Tissues: Ileum, NOS Procedures: BCL-2 (add) CD20 (add) CD5 (add) CD79A (add) KI-67 (add) CD3 (initial) PHYSICIAN & INSTITUTION [place] [id number] SPECIMEN INFORMATION: Tissue Source: A - Terminal ileum Clinical Info: Screening Specimen Number: [id number] CPT code: 72663, 46571 x5 METHODOLOGY: Deparaffinized sections of prefer/formalin-fixed tissue or PAP/DQ stained slides are incubated with monoclonal/polyclonal antibodies/oligonucleotide probes. Localization is made via biotin free immunoperoxidase method. Appropriate controls are performed and reacted as expected. Results on target cell population are indicated in the following table: RESULTS: ANTIBODY / CLONE RESULT Block A CD3 (PS1) positive CD5 (SP10) positive CD20 (L26) positive CD79a (11E3) positive BCL-2 (bcl-2/100/D5) positive Ki-67 (30-9) positive, rare These tests were developed and their performance characteristics determined by [facility]. They may not have been cleared or approved by the U.S. Food and Drug Administration. The FDA has determined that such clearance or approval is not necessary. The above immunohistochemical/dualISH markers are ordered and reviewed by the Pathologist. INTERPRETATION: A. Terminal ileum, biopsy: Polytypic lymphoid aggregates. AM:drew 11/25/2023
[2023-11-20 09:10] VITALS: BP 135/70; PULSE 75; RESP 18; TEMP 37.1; O2SAT 97; BMI 31.9
--- NOTE | 2023-11-20 09:11 | HP.PCM_ITS ---
HPI - General General Date of Admission: 11/20/23 Date of Service: 11/20/23 Chief Complaint: Screening colonoscopy HPI Narrative DOMENICA BOSWELL, is a 68 F who presents today for screening colonoscopy. She had a colonoscopy 5 years ago and was normal. She had a colonoscopy 5 years before that she did have adenomatous polyps at that time. She does not have any abdominal pain. She denies any cramping. She denies any shortness of breath. Overall she is in very good health. [facility] Medical History (Updated 11/13/23 @ 15:12 by Alee Vargas) Alcohol use Anxiety and depression Back pain Dietary restriction Easy bruising History of echocardiogram History of stress test Hx of colonic polyps Hypothyroid IBS (irritable bowel syndrome) Insomnia Migraine headache Non-smoker Post-menopausal Shortness of breath on exertion Home Medications albuterol sulfate 90 mcg/actuation aerosol inhaler 2 puff inhalation Q4-6H PRN shortness of breath or wheezing 10/29/23 [History Last Taken Unknown] cetirizine 10 mg capsule (Zyrtec) 10 mg PO DAILY PRN allergy symptoms 10/29/23 [History Last Taken 11/19/23 07:30] cholecalciferol (vitamin D3) 50 mcg (2,000 unit) capsule 100 mcg PO DAILY 10/29/23 [History Last Taken 11/19/23 07:30] cyclosporine 0.05 % eye drops (Restasis MultiDose) 1 drp ophthalmic (eye) BID 10/29/23 [History Last Taken 11/19/23 07:30] hyoscyamine sulfate 0.125 mg sublingual tablet 0.125 mg sublingual BID-QID PRN dyspepsia 10/29/23 [History Last Taken Unknown] levothyroxine 125 mcg capsule 125 mcg PO WETHFRSA 10/29/23 [History Last Taken 11/20/23 07:30] prazosin 2 mg capsule 2 mg PO QHS 10/29/23 [History Last Taken 11/19/23 22:00] vits no.126-ferrous fum 28 mg iron-folic acid 800 mcg tablet (Classic ) 1 tab PO QHS 10/29/23 [History Last Taken 11/19/23 22:00] trazodone 100 mg tablet 200 mg PO QHS 10/29/23 [History Last Taken 11/19/23 22:00] venlafaxine 75 mg tablet,extended release 24 hr 225 mg PO QHS 10/29/23 [History Last Taken 11/19/23 22:00] Allergy/AdvReac Type Severity Reaction Status Date / Time NSAIDS (Non-Steroidal Allergy Unknown Other Verified 11/20/23 09:06 Anti-Inflamma avocado Allergy Food Verified 11/20/23 09:06 Allergy nectarine Allergy Food Verified 11/20/23 09:06 Allergy watermelon Allergy Food Verified 11/20/23 09:06 Allergy Family History (Updated 10/29/23 @ 08:27 by Adrianne Goldman) Grandmother Breast cancer Surgical History (Updated 11/13/23 @ 15:12 by Alee Vargas) History of eyelid surgery Hx of abdominoplasty Hx of breast reduction, elective Hx of colonoscopy Hx of gastric bypass Hx of hysterectomy Hx of plastic surgery Hx of shoulder surgery Hx of surgical procedure Hx of tonsillectomy Social History (Updated 10/29/23 @ 08:27 by Adrianne Goldman) household members: spouse current occupational status: retired Smoking Status: Never smoker ROS Review of Systems ROS Unobtainable: other Constitutional Constitutional: Denies fatigue, fever(s), poor appetite, weight gain or weight loss ENT HEENT: Denies mouth lesions Cardiovascular Cardiovascular: Denies abdominal bloating, abdominal edema or abdominal pain Respiratory/Chest Respiratory/Chest: Denies change in mental status, change in phlegm color, chest congestion or chest tightness Gastrointestinal Gastrointestinal: Denies belching, bloating, change in bowel habits, change in stool character, chewing difficulty, coffee ground emesis, constipation, cramping, diarrhea, dyspepsia, dysphagia, early satiety, excessive flatus, fecal incontinence, heartburn, hematemesis, hematochezia, hemorrhoids, loose stools, melena, nausea, odynophagia, rectal bleeding, tenesmus, vomiting or weight changes Genitourinary Genitourinary: Denies abdominal discomfort, burning urination or itching Musculoskeletal Musculoskeletal: Reports as per HPI; Denies muscle weakness or myalgias Integumentary Integumentary: Denies jaundice Neurologic Neurologic: Denies lack of coordination or weakness Psychiatric Psychiatric: Denies confusion, depression, memory loss, mood swings, paranoia or suicidal ideation Endocrine Endocrinology: Denies systems reviewed and no addt'l complaints, except as documented Hematologic/Lymphatic Hematologic/Lymphatic: Denies anemia, easy bleeding, easy bruising or lymphadenopathy Allergic/Immunologic Allergic/Immunologic: Denies systems reviewed and no addt'l complaints, except as documented Physical Exam Const alert General Appearance: cooperative Orientation / Consciousness: oriented to person HEENT hearing grossly normal bilaterally Head and Scalp: normal to inspection Face and Sinus: face symmetric Nose: external nose normal Mouth: oral and palatal mucosa normal Eyes conjunctivae normal General Eye: normal appearance of both eyes Neck full ROM General: normal visual inspection Lymph Lymphatic: no lymphadenopathy noted Chest inspection of chest normal and palpation of chest normal Chest: symmetrical chest wall rise Resp normal respiratory effort Effort and Inspection: able to speak in complete sentences Cardio regular rate GI non-distended Percussion: normal to percussion Rectal Exam: deferred Neuro Speech: speech normal Gait (Neuro): normal gait Assessment & Plan Assessment/Plan (1) Encounter for screening for malignant neoplasm of colon: PLAN: She was explained alternatives, risk, benefits including not withstanding bleeding, infection, sepsis, perforation, need for emergent surgery and . She will have an ASA of 3.
[2023-11-20] MEDS: Lactated Ringers 1,000 ML 15 ML IV (09:13)
--- NOTE | 2023-11-20 09:30 | COLBX_PTH ---
PATHOLOGY RESULTS PATIENT: DOMENICA BOSWELL LOC: EN U#:[id number] AGE/SX: 68/F ROOM: RE11/20/[address]: Dr. Manpreet Estrella DO : 1955 BED: DIS: 11/20/2023 SPEC #: [id number] RECD: 11/20/23 13:21 STATUS: TATY SARAH #: [id number] JANET: 11/20/23 09:[address]: Manpreet Estrella DEPT: SURGICAL PATHOLOGY RECD BY: Cammy Brothers ENTERED: 11/20/23 13:41 SP TYPE: COLON BX OTHR DR: Rhonda Cannon DO Tissues: Ileum, NOS COLON BIOPSY Ascending colon Sigmoid colon biopsy Rectum, NOS Procedures: Surgery Specimen Level IV HEADER OPERATION: Colonoscopy - open access with biopsy and polypectomy PRE-OP DIAGNOSIS: Screening TISSUE SUBMITTED: A - Terminal ileum biopsy, B - Random colon biopsy, C - Ascending colon polyp, D - Sigmoid biopsy, E - Rectal biopsy MICROSCOPIC DIAGNOSIS A. Terminal ileum, biopsy: Benign lymphoid aggregates. See comment. B. Colon, random biopsy: Focal acute colitis. See comment. C. Ascending colon polyp, biopsy: Fragments of hyperplastic polyp. D. Sigmoid colon, biopsy: Mild acute colitis. See comment. E. Rectum, biopsy: Focal acute colitis. See comment. AM:drew 11/24/2023 COMMENT A. Immunohistochemistry ([id number]) supports the above diagnosis. B. Sections show focal cryptitis and crypt abscesses. There is not significant glandular distortion, fissuring ulcers or transmural lymphoid aggregates. Clinical correlation is suggested. D & E. Rare cryptitis is identified. There is no glandular distortion, fissuring ulcers or transmural lymphoid aggregates. Clinical correlation is suggested. MICROSCOPIC DESCRIPTION Slides are reviewed. GROSS DESCRIPTION A - Received in fixative is one container labeled with the patient's name and designated terminal ileum biopsy. The specimen consists of multiple irregular fragments of light garcia soft tissue that in aggregate measure 1.2 x 0.2 x 0.1 cm. The specimen is totally submitted in one cassette. B - Received in fixative is one container labeled with the patient's name and designated random colon biopsy. The specimen consists of multiple irregular fragments of light garcia soft tissue that in aggregate measure 2.0 x 0.3 x 0.1 cm. The specimen is totally submitted in one cassette. C - Received in fixative is one container labeled with the patient's name and designated ascending colon polyp. The specimen consists of multiple irregular fragments of light garcia soft tissue mixed with fecal material that in aggregate measure 0.6 x 0.2 x 0.1 cm. The specimen is totally submitted in one cassette. D - Received in fixative is one container labeled with the patient's name and designated sigmoid biopsy. The specimen consists of multiple irregular fragments of light garcia soft tissue that in aggregate measure 1.2 x 0.3 x 0.1 cm. The specimen is totally submitted in one cassette. E - Received in fixative is one container labeled with the patient's name and designated rectal biopsy. The specimen consists of two irregular fragments of light garcia soft tissue that in aggregate measure 0.6 x 0.3 x 0.1 cm. The specimen is totally submitted in one cassette. / 11/20/23 TC: 2 CPT: 56369 x5
[2023-11-20 10:00] VITALS: BP 135/70; BP 139/76; PULSE 90; RESP 16; TEMP 36.2; O2SAT 95
[2023-11-20 10:05] VITALS: BP 134/63; BP 135/70; PULSE 87; RESP 16; O2SAT 99
--- NOTE | 2023-11-20 10:05 | OP.COLON_ITS ---
Patient Name: Suki Lobato Procedure Date: 11/20/2023 9:18 AM Date of : 1955 Age: 68 Procedure: Colonoscopy Indications: Clinically significant diarrhea of unexplained origin Providers: Manpreet Estrella DO Medicines: Monitored Anesthesia Care Patient Profile: This is a 68 year old female. Refer to note in patient chart for documentation of history and physical. Last Colonoscopy: date unknown. Unable to locate last colonoscopy report. Complications: No immediate complications. Procedure: Pre-Anesthesia Assessment: - Prior to the procedure, a History and Physical was performed, and patient medications and allergies were reviewed. The patient is competent. The risks and benefits of the procedure and the sedation options and risks were discussed with the patient. All questions were answered and informed consent was obtained. Patient identification and proposed procedure were verified by the physician in the pre-procedure area. Mental Status Examination: alert and oriented. Airway Examination: normal oropharyngeal airway and neck mobility. Respiratory Examination: clear to auscultation. CV Examination: normal. Prophylactic Antibiotics: The patient does not require prophylactic antibiotics. Prior Anticoagulants: The patient has taken no anticoagulant or antiplatelet agents. ASA Grade Assessment: III - A patient with severe systemic disease. After reviewing the risks and benefits, the patient was deemed in satisfactory condition to undergo the procedure. The anesthesia plan was to use monitored anesthesia care (MAC). Immediately prior to administration of medications, the patient was re-assessed for adequacy to receive sedatives. The heart rate, respiratory rate, oxygen saturations, blood pressure, adequacy of pulmonary ventilation, and response to care were monitored throughout the procedure. The physical status of the patient was re-assessed after the procedure. After I obtained informed consent, the scope was passed under direct vision. Throughout the procedure, the patient's blood pressure, pulse, and oxygen saturations were monitored continuously. The colonoscope was introduced through the anus and advanced to the cecum, identified by appendiceal orifice and ileocecal valve. The colonoscopy was performed without difficulty. The patient tolerated the procedure well. The quality of the bowel preparation was adequate. The terminal ileum, ileocecal valve, appendiceal orifice, and rectum were photographed. Scope In: 9:29:55 AM Scope Withdrawal Time 0 hours 16 minutes 39 seconds Scope Out: 9:55:00 AM Total Procedure Duration Time 0 hours 25 minutes 5 seconds Findings: The perianal and digital rectal examinations were normal. Multiple small and large-mouthed diverticula were found in the recto-sigmoid colon, sigmoid colon and descending colon. Patchy mild inflammation characterized by erosions and erythema was found in the rectum, in the recto-sigmoid colon, in the sigmoid colon and in the ascending colon. Biopsies were taken with a cold forceps for histology. An 8 mm polyp was found in the ascending colon. The polyp was sessile. The polyp was removed with a hot snare. The polyp was removed with a saline injection-lift technique using a hot snare. Resection and retrieval were complete. Verification of patient identification for the specimen was done. Estimated blood loss was minimal. The terminal ileum appeared normal. Biopsies were taken with a cold forceps for histology. Verification of patient identification for the specimen was done. Estimated blood loss was minimal. Impression: - Diverticulosis in the recto-sigmoid colon, in the sigmoid colon and in the descending colon. - Patchy mild inflammation was found in the rectum, in the recto-sigmoid colon, in the sigmoid colon and in the ascending colon secondary to colitis. Biopsied. - One 8 mm polyp in the ascending colon, removed with a hot snare and removed using injection-lift and a hot snare. Resected and retrieved. - The examined portion of the ileum was normal. Biopsied. Recommendation: - Discharge patient to home. - Resume previous diet. - Continue present medications. - Await pathology results. - Repeat colonoscopy in 5 years for surveillance. Procedure Code(s): --- Professional --- 99412, Colonoscopy, flexible; with removal of tumor(s), polyp(s), or other lesion(s) by snare technique 57859, 59, Colonoscopy, flexible; with biopsy, single or multiple 44815, Colonoscopy, flexible; with directed submucosal injection(s), any substance CPT copyright 2021 [employer]. All rights reserved. The codes documented in this report are preliminary and upon floor scrubber review may be revised to meet current compliance requirements. Manpreet Estrella DO 11/20/2023 10:05:24 AM This report has been signed electronically. Number of Addenda: 0 Note Initiated On: 11/20/2023 9:18 AM
--- NOTE | 2023-11-20 10:06 | OP.CCLET_ITS ---
11/20/2023 Rhonda Cannon Do Re : Colonoscopy procedure for Suki Lobato Dear Kassandra This procedure was performed on November. My impressions and recommendations are as follows: Impressions : - Diverticulosis in the recto-sigmoid colon, in the sigmoid colon and in the descending colon. - Patchy mild inflammation was found in the rectum, in the recto-sigmoid colon, in the sigmoid colon and in the ascending colon secondary to colitis. Biopsied. - One 8 mm polyp in the ascending colon, removed with a hot snare and removed using injection-lift and a hot snare. Resected and retrieved. - The examined portion of the ileum was normal. Biopsied. Recommendations : - Discharge patient to home. - Resume previous diet. - Continue present medications. - Await pathology results. - Repeat colonoscopy in 5 years for surveillance. My findings are described in the full procedure note, which is enclosed. If I can be of further assistance, please feel free to contact me at . Sincerely, Manpreet Estrella DO 11/20/2023 10:05:24 AM This report has been signed electronically.
[2023-11-20 10:10] VITALS: BP 109/52; BP 135/70; PULSE 82; RESP 16; TEMP 36.3; O2SAT 99
[2023-11-20 10:42] VITALS: BP 135/70
== END 2023-11-20 10:53 | disposition home or self-care (01) ==
LOC: EN 08:29 → AC 08:31
PROVIDERS: PCP Family Medicine; Referring Provider Family Medicine; Visit Provider Internal Medicine Gastroenterology
PROC: 0DJD8ZZ Inspection of Lower Intestinal Tract, Via Natural or Artificial Opening Endoscopic (ICD-10-PCS; CPT 45378; principal; 2023-11-20 09:25)
DX: Z12.11 Encounter for screening for malignant neoplasm of colon (principal); K52.9 Noninfective gastroenteritis and colitis, unspecified; K63.5 Polyp of colon; K57.30 Diverticulosis of large intestine without perforation or abscess without bleeding; Z79.890 Hormone replacement therapy; E03.9 Hypothyroidism, unspecified
CPT/HCPCS: 45380; 45385; 45381; 88305; 88341; 88342; J7120; J2405

== ENCOUNTER → 2024-01-09 | Outpatient (CLI) | payer MEDICARE, SELFPAY | END | disposition home or self-care (01) | PROVIDERS: PCP Family Medicine; Referring Provider Family Medicine; Visit Provider Family Medicine | DX: E16.2 Hypoglycemia, unspecified (principal) | CPT/HCPCS: 36415 ==

== ENCOUNTER → 2024-01-27 | Outpatient (CLI) | payer MEDICARE, SELFPAY ==
[2024-01-27 12:26] LABS: Absolute Lymphocyte Count 2.37 X10^3/uL (0.83-4.51); Absolute Neutrophil Count 3.6 X10^3/uL (2.0-7.7); Basophil# 0.05 X10^3/uL; Basophil% 0.7 % (0-1); Eosinophil# 0.23 X10^3/uL; Eosinophils% 3.3 % (0-5); Hematocrit 39.3 % (37-47); Hemoglobin 13.2 g/dL (12.0-15.0); Lymphocyte # 2.37 X10^3/ul (0.83-4.51); Lymphocyte % 34.4 % (19-41); Mean Corp Hgb Conc 33.6 g/dL (32-36); Mean Corpuscular Hgb 32.1 pg (27.0-32.0); Mean Corpuscular Volume 95.6 fL (81-99); Mean Platelet Vol. 8.8 fl (6.2-12.0); Monocyte# 0.64 X10^3/uL; Monocyte% 9.3 % (0-10); NRBC Flagged by Analyzer 0 % (0-5); Neutrophil # 3.58 X10^3/uL (2.7-7.7); Platelet Count 318 K/mm3 (150-450); RBC Distribution Width SD 45.7 fl (35.1-43.9); Red Blood Count 4.11 M/mm3 (4.2-5.4); White Blood Count 6.9 K/mm3 (4.4-11.0)
[2024-01-27 12:55] LABS: ALB/GLOB Ratio 1.2 RATIO (0.9-2.4); AST(SGOT) 24 U/L (15-37); Alanine Aminotransfer ALT/SGPT 38 U/L (13-56); Albumin, Serum 3.6 g/dL (3.2-5.0); Alkaline Phosphatase 99 U/L (45-117); Anion Gap 4 (5-15); BUN 14 mg/dL (7-18); BUN/Creat Ratio 16.8 RATIO (10-20); CRP 6.26 mg/L (0.0-3.0); Calcium,Total 9.1 mg/dL (8.5-10.1); Chloride 106 mmol/L (98-107); Creatinine, Serum 0.83 mg/dL (0.55-1.02); EST Glomerular Filtration Rate 72 mL/min (>60); Est Glom Filt Rate - Afr Amer 87 mL/min (>60); Glucose 85 mg/dL (74-106); Potassium 3.9 mmol/L (3.5-5.1); Protein, Total 6.6 g/dL (6.4-8.2); Sodium Level 141 mmol/L (136-145)
[2024-01-27 12:56] LABS: Hepatitis B Surface Antigen Non-Reactive (Nonreactive)
[2024-01-30 11:09] LABS: QNTFERON TB Mitogen Value > 10.00 IU/mL (.); QNTFERON TB Nil Value 0.06 IU/mL (.); QNTFERON TB1+ Ag Value 0.06 IU/mL (.); QNTFERON TB2+ Ag Value 0.06 IU/mL (.); QNTIFERON TB Positive Criteria Negative (Negative)
== END | disposition home or self-care (01) ==
LOC: MTLAB 09:38
PROVIDERS: PCP Family Medicine
DX: K51.50 Left sided colitis without complications (principal); Z98.84 Bariatric surgery status
CPT/HCPCS: 36415; 80053; 85025; 86140; 86480; 87340

== ENCOUNTER → 2024-03-16 | Outpatient (CLI) | payer MEDICARE, SELFPAY ==
[2024-03-25 18:08] LABS: Calprotectin, Stool 127 ug/g (0-120)
== END | disposition home or self-care (01) ==
LOC: MTLAB 15:44
PROVIDERS: PCP Family Medicine
DX: K51.50 Left sided colitis without complications (principal)
CPT/HCPCS: 83993

== ENCOUNTER → 2024-05-26 | Outpatient (CLI) | payer MEDICARE, SELFPAY ==
[2024-05-26 15:35] LABS: T4 Free Direct 0.93 ng/dL (0.76-1.46)
== END | disposition home or self-care (01) ==
LOC: MTLAB 11:06
PROVIDERS: PCP Family Medicine; Referring Provider Family Medicine; Visit Provider Family Medicine
DX: E03.9 Hypothyroidism, unspecified (principal)
CPT/HCPCS: 36415; 84439; 84443

== ENCOUNTER 2024-06-04 10:30 | Outpatient (RCR) | payer MEDICARE, SELFPAY ==
--- NOTE | 2024-02-04 16:34 | HP.PTEVAL_ITS ---
Patient's Visit Information Visit Information Visit Information: DOMENICA BOSWELL is a 68 year old F referred to Physical Therapy by Dr. Raad Johnson MD with a diagnosis of L shoulder pain. Date of Evaluation: 02/04/24 Physical Therapist: LEFTY Bahena Visit Plan Frequency: 2x /Week Duration: 2 Months Plan: 2X/ week for 6 weeks for L shoulder AROM, PROM, AAROM, L scapular and postural strength, L RC strength with HEP\ Think Impingement/ Phase III RC repair HEP: supine wand flexion and green mid rows Subjective Subjective: Pt reports that she had L shoulder surgery in Nov 2022 and not sure what they did but she did not get to do her therapy because she was moving. She has shoulder pain on the L when laying on it and using her arm overhead. She can not lay on her L side cause her neck hurts. Pain L shoulder pain: Pain Intensity (Out of 10): 1 Neck pain: Pain Intensity (Out of 10): 5 Objective Objective: R handed R ribbon sweatband operator 60 and L 50 UE AROM: R shoulder AROM Flexion 170 and L 160 R shoulder AROM ABD 180 and L 164 R shoulder AROM ER 60 and L 64 with pain at end range UE MMT: R shoulder flex 9.6 and L 3.3 R shoulder abd 8.6 and L 3.2 R shoulder ER 11 and L 9.2 Pt had pain at end range PROM flex and IR Balance/Special Test Scores Quick DASH Score: 20.4525 Goals Goal 1:: I HEP Goal Time Frame: 6-8 Weeks Goal 2:: Increase L shoulder AROM to be able to reach above her head without pain Goal Time Frame: 6-8 Weeks Goal 3:: Increase L shoulder strength (at the time of the eval: UE MMT: R shoulder flex 9.6 and L 3.3 R shoulder abd 8.6 and L 3.2 R shoulder ER 11 and L 9.2). Goal Time Frame: 6-8 Weeks Rehabilitation Potential Rehabilitation Potential: Good Anticipated Interventions Patient/Client Instruction: Educate patient on: Condition and Plan of Care For the Purpose of:: To decrease pain, To increase ROM, To improve nutrient delivery to tissue, To improve muscle performance and motor function, To improve health of tissue, To decrease soft tissue restriction and To increase flexibility/ROM Therapeutic Exercise to Include: Strength training, Postural training, Flexibilty training, Neuromotor development, Passive ROM, Active ROM and Scapular Strength/Stabilization For the Purpose of:: To decrease pain, To increase ROM, To improve nutrient delivery to tissue, To improve muscle performance and motor function, To improve ability to perform ADL's, To increase tolerance to activity/condition/position, To improve performance and independence with ADL's, To decrease level of supervision to perform tasks, To improve ability of physical actions for home/community/work/leisure, To improve health of tissue, To decrease soft tissue restriction and To increase flexibility/ROM Manual Therapy Techniques to Include: Mobilization and Passive ROM For the Purpose of:: To decrease pain, To increase ROM and To improve nutrient delivery to tissue Cryotherapy (ice pack, ice massage): Yes Thermo therapy (hot pack): Yes Ultrasound (thermal/non thermal): Yes For the Purpose of:: To decrease pain, To increase ROM and To improve nutrient delivery to tissue Text: Thank you for the opportunity to evaluate your patient. For Medicare and Medicare HMO plans, please review the plan of care and approve it. It will need to be FAXED BACK to us at [phone] for Medicare purposes. For Medicare only, by signing this I certify the plan of care. Please let me know if there are questions or concerns regarding this plan of care. Physician Signature: Date:
--- NOTE | 2024-05-11 10:54 | HP.PTREVAL ---
Re-Evaluation Intro: Dr. Raad Johnson MD, It has been my pleasure to treat DOMENICA BOSWELL over the last 11 visits for L shoulder pain. Please see the progress note below for an update on the physical therapy plan of care! Subjective Subjective: Pt reports that she thinks that since she fell she has gone backwards and it is sore today. She does not know if she twisted somehow cause she is now sore to do her bra again and had not had that. She is doing some band exercises at home. Objective Objective/Function: R shoulder flex 9.6 and L 4.4 R shoulder abd 8.6 and L 3.7 R shoulder ER 11 and L 9.2 Use L arm to reach overhead with slight amount of pain at end range. Plan Plan Plan: 2X/ week for 3 weeks for L shoulder L scapular and postural strength, L RC strength with HEP Think Impingement/ Phase III RC repair HEP: supine wand flexion and green mid rows bn Balance/Gait/Functional tests Balance/Special Test Scores Quick DASH Score: 22.7250 Goals Goals Goal 1:: I HEP Goal Time Frame: 6-8 Weeks Goal Progress: Goal Met Goal 2:: Increase L shoulder AROM to be able to reach above her head without pain Goal Time Frame: 6-8 Weeks Goal 3:: Increase L shoulder strength (at the time of the eval: UE MMT: R shoulder flex 9.6 and L 3.3 R shoulder abd 8.6 and L 3.2 R shoulder ER 11 and L 9.2). Goal Time Frame: 6-8 Weeks Goal 4:: Be able to hook her bra without pain Goal Time Frame: 6-8 Weeks Anticipated Interventions Anticipated Interventions Patient/Client Instruction: Educate patient on: Condition and Plan of Care For the Purpose of:: To decrease pain, To increase ROM, To improve nutrient delivery to tissue, To improve muscle performance and motor function, To improve health of tissue, To decrease soft tissue restriction and To increase flexibility/ROM Therapeutic Exercise to Include: Strength training, Postural training, Flexibilty training, Neuromotor development, Passive ROM, Active ROM and Scapular Strength/Stabilization For the Purpose of:: To decrease pain, To increase ROM, To improve nutrient delivery to tissue, To improve muscle performance and motor function, To improve ability to perform ADL's, To increase tolerance to activity/condition/position, To improve performance and independence with ADL's, To decrease level of supervision to perform tasks, To improve ability of physical actions for home/community/work/leisure, To improve health of tissue, To decrease soft tissue restriction and To increase flexibility/ROM Manual Therapy Techniques to Include: Mobilization and Passive ROM For the Purpose of:: To decrease pain, To increase ROM and To improve nutrient delivery to tissue Cryotherapy (ice pack, ice massage): Yes Thermo therapy (hot pack): Yes Ultrasound (thermal/non thermal): Yes For the Purpose of:: To decrease pain, To increase ROM and To improve nutrient delivery to tissue Re-Evaluation Ending Re-evaluation ending: Please do not hesitate to contact me at [phone] by phone or if you have questions or concerns regarding this new plan of care! Sincerely, Qing Fisher, MPT
--- NOTE | 2024-06-04 11:21 | HP.PTDCSUM ---
Discharge Summary D/C summary: It has been my pleasure to treat DOMENICA BOSWELL referred by Dr. Raad Johnson MD, with the diagnosis of L shoulder pain for a total of 16 visit(s). Discharge Date: 06/04/24 Please see the following information for a summary of their discharge status. Subjective Subjective: She still struggles with laying on her shoulder is still an issue Pain L shoulder pain: Pain Intensity (Out of 10): 0 Neck pain: Pain Intensity (Out of 10): 0 Overall Improvement % Improvement: 50 Objective Objective/Function: R shoulder flex 9.6 and L 9.1 R shoulder abd 8.6 and L 8.6 R shoulder ER 11 and L 9.4 Pt has approx 165 degrees L shoulder elevation Goals Goal 1:: I HEP Goal Progress: Goal Met Goal 2:: Increase L shoulder AROM to be able to reach above her head without pain Goal Progress: Goal Met Goal 3:: Increase L shoulder strength (at the time of the eval: UE MMT: R shoulder flex 9.6 and L 3.3 R shoulder abd 8.6 and L 3.2 R shoulder ER 11 and L 9.2). Goal Progress: Goal Met Goal 4:: Be able to hook her bra without pain Goal Progress: Goal Met Plan Plan: DC PT to HEP Issued orange and green bands for HEP D/C Information Discharge Comments: DC PT to HEP d/c sentence: If there are questions or concerns regarding this patient's physical therapy, please feel free to call me at [phone]. Thank you for the referral of this patient. Sincerely, Qing Fisher, MPT Balance/Gait/Functional tests Balance/Special Test Scores Quick DASH Score: 2.2725 Improvement % Improvement: 50
== END 2024-06-04 19:00 | disposition home or self-care (01) ==
LOC: PT 10:30
PROVIDERS: PCP Family Medicine; Visit Provider Anesthesiology
DX: M25.512 Pain in left shoulder (principal)
CPT/HCPCS: 97110; 97161; 97530

== ENCOUNTER → 2024-07-06 | Outpatient (CLI) | payer MEDICARE, SELFPAY ==
[2024-07-10 06:09] LABS: Calprotectin, Stool 102 ug/g (0-120)
== END | disposition home or self-care (01) ==
LOC: MTLAB 14:35
PROVIDERS: PCP Family Medicine
DX: K51.50 Left sided colitis without complications (principal)
CPT/HCPCS: 83993

== ENCOUNTER → 2024-11-01 | Outpatient (CLI) | payer MEDICARE, SELFPAY ==
--- NOTE | 2024-11-01 12:00 | MRI_ITS ---
STUDY: MRI LUMBAR SPINE WITHOUT CONTRAST REASON FOR EXAM: Female, 69 years old. R SIDE LOWER BACK PAIN AND SPASMS X 6 MONTHS TECHNIQUE: Standardized fat and water weighted pulse sequences were obtained in the sagittal and axial planes. Noncontrast images obtained. Contrast: No contrast administered COMPARISON: None FINDINGS: Vertebral bodies and alignment. 1. Vertebral body height and alignment are maintained with the exception of mild levoscoliotic curvature without underlying fracture marrow edema or subluxation.. There is a lesion within the L3 vertebral body with diminished T1 signal, mildly elevated T2 signal. This has the appearance of an atypical hemangioma. 2. Paraspinous soft tissue planes have normal appearance. Normal appearance of the muscular fascial planes of the erector spinae. 3. Normal appearance of the sacrum and sacroiliac joints. Intervertebral disks levels. T12-L1: There is broad-based posterior disc bulge without evidence of disc herniation canal or foraminal stenosis Endplate: No focal endplate marrow changes or endplate deformity. L1-2: Disc desiccation, broad-based disc bulge without disc herniation canal or foraminal stenosis. Endplate: No focal endplate marrow changes or endplate deformity. L2-3: Loss of disc height, broad-based posterior disc bulge/protrusion osteophyte complex. No central canal stenosis however compression of lateral recesses greater on the RIGHT than LEFT with potential nerve root impingement. There is narrowing of the RIGHT neural foramen. Endplate: Subtle Modic type I endplate edema involving both endplates. L3-4: Disc desiccation, broad-based posterior disc bulge and osteophyte complex with mild deformity the anterior epidural space without central canal stenosis. There is mild narrowing of the lateral recesses with associated nerve root crowding without mairi impingement. Facet and ligament flavum hypertrophic changes are present greater on the RIGHT than LEFT. The neural foramina appear widely patent. Endplate: No focal endplate marrow changes or endplate deformity. L4-5: Disc desiccation, broad-based posterior disc bulge, no central canal stenosis. Crowding of nerve roots lateral recesses. The neural foramina appear widely patent. Facet and ligamentum flavum hypertrophic changes are present. Endplate: No focal endplate marrow changes or endplate deformity. L5-S1: No disc herniation canal or foraminal stenosis. Endplate: No focal endplate marrow changes or endplate deformity. Spinal cord: Normal appearance of the spinal cord and conus. Conus is located at L1. Cauda equina has normal appearance. No evidence of cord compression or edema. No intramedullary signal abnormality noted. Paraspinous soft tissues: Normal visualized paraspinous soft tissue structures. MRI/Spine Lumbar (Routine) IMPRESSION: 1. Multilevel lumbar spondylosis with broad-based disc bulges at multiple levels, no evidence however of marii canal stenosis. 2. Narrowing of lateral recesses and neural foramina particularly on the RIGHT at L2-3, with potential nerve root impingement within the lateral recesses at this level.. 3. Mild multilevel lateral recess narrowing at remaining levels due to disc bulges, facet and ligamentum flavum hypertrophic changes without marii nerve root impingement. 4. Normal appearance of visualized spinal cord and conus. 5. Subtle Modic type I endplate edema involving the endplates at L2-3. 6. Incidental note of a typical hemangioma at L3. Electronically Signed: Leodan Monge MD at 0:19 EST ,
== END | disposition home or self-care (01) ==
LOC: MRI 11:49
PROVIDERS: PCP Family Medicine; Referring Provider Student in an Organized Health Care Education/Training Program; Visit Provider Student in an Organized Health Care Education/Training Program
DX: M54.50 Low back pain, unspecified (principal); M62.830 Muscle spasm of back
CPT/HCPCS: 72148

== ENCOUNTER 2024-11-18 12:30 | Outpatient (RCR) | payer MEDICARE, SELFPAY ==
--- NOTE | 2024-10-19 13:31 | HP.PTEVAL ---
Patient's Visit Information Visit Information Visit Information: DOMENICA BOSWELL is a 69 year old F referred to Physical Therapy by KITTY Whitt with a diagnosis of SPONDYLOLISTHESIS ,LUMBAR. Date of Evaluation: 10/19/24 Physical Therapist: Waldemar Long PT, Cert MDT, OCS Visit Plan Frequency: 2x /Week Duration: 4 Weeks Plan: PT INTERVENTIONS DLS ,POSTURAL EX'S ,FUNCTIONAL STRENGTHENING ,BLE STRENGTHENING (HIPS ) AND MODALTIES PRN Subjective Subjective: This 69 y/o female presents to physical therapy with lumbar pain. Patient has had lumbar pain for 12 months progressively 6 months insidious onset. Patient seen Dr TANG did x-rays showed 5 mm retrolisthesis of L3 on L4, unchanged on the flexion and extension ,There is multilevel endplate spondylosis of the lumbar vertebrae. There is multi-level degenerative disc disease with multi-level disc space narrowing. There is multilevel facet hypertrophy.. No medication but has had pain management and takes oxycodone. Plan to for MRI . Location of pain symmetrical right side > left. She has experienced random low back spasms for about 20 years. Patient denies injury, insidious onset. Patient also reports a muscle spasm Dec. 8th in her right low back. Says the spasms can be caused by standing and turning the wrong way. She states it is worse in the mornings right after getting out of bed and usually improves after moving around for a while. Aggravating random occurs with pain and spasms. Alleviating rest TENS unit. Denies paresthesia/tingling -. Coughing/sneezing-.Patient pain sleeping except when getting on right side. Patient condition affects QOL and function. Patient to reduce pain,. SOCAIL: VOCATION: retired Pain Bilateral Back: Pain Intensity (Out of 10): 2 Pain Intensity Range: 10 Objective Objective: POSTURE: mod thoracic kyphosis PALAPTION: unremarkable GAIT: reciprocal pattern SYMMETRIES: align FLEXABILITY: hamstrings WFL ,PIRIFORMIS WNL MMT: quads/hams 4/5 ,hip flexion 4/5 ,hip abd 4-/5,ankle 4/5 LUMBAR ROM: flexion WFL ,extension WFL ,side glides WFL Special Tests L/S Slump test left side: Negative L/S Slump test right side: Negative L/S Left Straight Leg Raise: Negative L/S Right Straight Leg Raise: Negative Lumbar Standing: Flexion - Mechanical Response: No effect Lumbar Standing: Flexion - Symptoms During Testing: No effect Lumbar Standing: Flexion - Symptoms After Testing: No effect Lumbar Standing: Extension - Symptoms During Testing: Increases Lumbar Standing: Extension - Symptoms After Testing: No effect Lumbar Standing: Right Side Glides - Mechanical Response: No effect Lumbar Standing: Right Side [place] - Symptoms During Testing: No effect Lumbar Standing: Right Side [place] - Symptoms After Testing: No effect Lumbar Standing: Left Side [place] - Mechanical Response: No effect Lumbar Standing: Left Side [place] - Symptoms During Testing: No effect Lumbar Standing: Left Side [place] - Symptoms After Testing: No effect Balance/Special Test Scores Oswestry Low Back Score: 20 Goals Goal 1:: Patient to be I with HEP for back Goal Time Frame: 4-6 Weeks Goal 2:: Patient to demonstrate 50% improvement with less pain and improve function with ADLS Goal Time Frame: 4-6 Weeks Goal 3:: Patient to improve lumbar ROM for function of recovery for ADLs and housework tasks Goal Time Frame: 4-6 Weeks Goal 4:: Patient to improve back oswestry score by 5 points to improve QOL and function Goal Time Frame: 4-6 Weeks Rehabilitation Potential Physical Therapy Diagnosis: This patient has lumbar pain with spondylolisthesis with back pain with positioning and motioning worse with specific activity thus benefit from skilled PT Rehabilitation Potential: Good Anticipated Interventions Patient/Client Instruction: Educate patient on: Condition and Plan of Care For the Purpose of:: To decrease pain, To increase ROM, To improve muscle performance and motor function, To improve ability to perform ADL's, To increase tolerance to activity/condition/position, To improve ability of physical actions for home/community/work/leisure, To improve health of tissue, To decrease soft tissue restriction, To increase flexibility/ROM, To prevent re-injury and To improve tolerance to ADL's Therapeutic Exercise to Include: Strength training, Endurance training, Balance training, Body mechanics, Postural training, Flexibilty training and Dynamic Lumbar Stabilization Comment: BLE ( HIPS) For the Purpose of:: To decrease pain, To increase ROM, To improve muscle performance and motor function, To increase tolerance to activity/condition/position, To improve ability of physical actions for home/community/work/leisure, To improve health of tissue, To decrease soft tissue restriction, To increase flexibility/ROM, To improve endurance and To reduce risk of recurrence Functional electric stimulation: Yes TENS: Yes IF ES: Yes Cryotherapy (ice pack, ice massage): Yes Thermo therapy (hot pack): Yes Ultrasound (thermal/non thermal): Yes For the Purpose of:: To decrease pain, To decrease swelling/inflammation, To improve muscle performance and motor function, To improve ability to perform ADL's, To increase tolerance to activity/condition/position, To improve ability of physical actions for home/community/work/leisure, To improve health of tissue, To decrease soft tissue restriction and To increase flexibility/ROM Text: Thank you for the opportunity to evaluate your patient. For Medicare and Medicare HMO plans, please review the plan of care and approve it. It will need to be FAXED BACK to us at [phone] for Medicare purposes. For Medicare only, by signing this I certify the plan of care. Please let me know if there are questions or concerns regarding this plan of care. Physician Signature: Date:
--- NOTE | 2024-11-18 13:01 | HP.PTDCSUM ---
Discharge Summary D/C summary: It has been my pleasure to treat DOMENICA BOSWELL referred by KITTY Whitt, with the diagnosis of SPONDYLOLISTHESIS ,LUMBAR for a total of 5 visit(s). Discharge Date: 11/18/24 Please see the following information for a summary of their discharge status. Subjective Subjective: Im don't think PT is helping Don't going to pain management Pain Bilateral Back: Pain Intensity (Out of 10): 2 Overall Improvement % Improvement: 25 Objective Objective/Function: POSTURE: mod thoracic kyphosis PALAPTION: unremarkable GAIT: reciprocal pattern SYMMETRIES: align FLEXABILITY: hamstrings WFL ,PIRIFORMIS WNL MMT: quads/hams 4/5 ,hip flexion 4/5 ,hip abd 4-/5,ankle 4/5 LUMBAR ROM: flexion WFL ,extension WFL ,side glides WFL Goals Goal 1:: Patient to be I with HEP for back Goal Progress: Goal Met Goal 2:: Patient to demonstrate 50% improvement with less pain and improve function with ADLS Goal Progress: Progressing Goal 3:: Patient to improve lumbar ROM for function of recovery for ADLs and housework tasks Goal Progress: Progressing Goal 4:: Patient to improve back oswestry score by 5 points to improve QOL and function Goal Progress: Progressing Plan Plan: D/C D/C Information Discharge Comments: D/C AND PROVIDED GYM PROGRAM d/c sentence: If there are questions or concerns regarding this patient's physical therapy, please feel free to call me at [phone]. Thank you for the referral of this patient. Sincerely, Waldemar Long, PT, Cert MDT, OCS Balance/Gait/Functional tests Balance/Special Test Scores Oswestry Low Back Score: 20 Improvement % Improvement: 25
== END 2024-11-18 19:00 | disposition home or self-care (01) ==
LOC: PT 12:30
PROVIDERS: PCP Family Medicine; Referring Provider Student in an Organized Health Care Education/Training Program; Visit Provider Student in an Organized Health Care Education/Training Program
DX: M43.10 Spondylolisthesis, site unspecified (principal)
CPT/HCPCS: 97110; 97162

== ENCOUNTER 2024-12-08 17:03 | Emergency (ER) | payer MEDICARE, SELFPAY ==
[2024-12-08 17:04] VITALS: BP 133/92; PULSE 84; RESP 16; TEMP 36.7; O2SAT 97; BMI 30.8
--- NOTE | 2024-12-08 17:10 | CT_ITS ---
EXAM: BRAIN/HEAD WITHOUT CONTRAST CLINICAL HISTORY: 69 y/o F with blurred vision, off balance. COMPARISON: None. TECHNIQUE: Routine CT imaging of the head without IV contrast. Additional multiplanar reformats were obtained. Dose reduction techniques were used including intermediate exposure control (AEC),iterative reconstruction technique, and/or mA and/or KV dose adjustments based on patient's size. FINDINGS: Mild generalized cerebral volume loss with concordant prominence of the ventricles and subarachnoid spaces. Moderate patchy supratentorial and centrum semiovale white matter hypodensities. The mccurdy-white matter interfaces are otherwise maintained. No acute intracranial hemorrhage or herniation. Mucosal thickening/mucous retention cyst within the right maxillary sinus. The visualized paranasal sinuses and mastoids are otherwise well-aerated. Prior left ocular lens replacement. No acute calvarial fracture or scalp laceration. CT/Brain/Head without Contrast IMPRESSION: No acute intracranial finding. Findings of chronic microvascular ischemic dowling ges and age-related changes. Reading Location: [id number]
--- NOTE | 2024-12-08 17:11 | ED.RN ---
INFORMED DR LINARES OF PT SYMPTOMS AND ORDERS OBTAINED. STATED PT NOT A STROKE ALERT
[2024-12-08 18:03] VITALS: BP 178/102; PULSE 79; RESP 17; O2SAT 97
[2024-12-08 18:14] VITALS: BP 169/81; PULSE 82; RESP 17; O2SAT 98
--- NOTE | 2024-12-08 18:15 | EDS_ITS ---
HPI History of Present Illness Chief Complaint: Dizziness [facility] Medical History Anxiety disorder, unspecified PTSD (post-traumatic stress disorder) Post-menopausal Alcohol use Easy bruising Back pain Migraine headache Dietary restriction Non-smoker Shortness of breath on exertion History of echocardiogram History of stress test IBS (irritable bowel syndrome) Insomnia Anxiety and depression Hypothyroid Hx of colonic polyps Home Medications ?Medication ?Instructions ?Recorded ?Last Taken ?Type cetirizine 10 mg capsule (Zyrtec) 10 mg PO DAILY PRN a llergy symptoms 10/29/23 11/19/23 07:30 History cholecalciferol (vitamin D3) 50 100 mcg PO DAILY 10/2911/19/23 07:30 History mcg (2,000 unit) capsule cyclosporine 0.05 % eye drops 1 drp ophthalmic (eye) B ID 10/29/23 11/19/23 07:30 History (Restasis MultiDose) hyoscyamine sulfate 0.125 mg 0.125 mg sublingual BID-Q ID PRN 10/29/23 Unknown History sublingual tablet dyspepsia levothyroxine 125 mcg capsule 125 mcg PO WETHFRSA 10/0711/20/23 07:30 History doxepin 6 mg tablet 6 mg PO QHS #30 tabs 4 Unknown Rx famotidine 20 mg tablet 20 mg PO QDAY 09/08/24 Unkno wn History mesalamine 1.2 gram tablet,delayed 4.8 g PO QDAY 09/08 Unknown History release prazosin 2 mg capsule 2 mg PO QHS #30 caps 4 Unknown Rx venlafaxine 225 mg tablet,extended 225 mg PO QDAY #90 tabs 09/08/24 Unknown Rx release 24 hr Allergy/AdvReac Type Severity Reaction Status Date / Time NSAIDS (Non-Steroidal Allergy Unknown Other Verified 12/08/24 18:10 Anti-Inflamma avocado Allergy Food Verified 12/08/24 18:10 Allergy nectarine Allergy Food Verified 12/08/24 18:10 Allergy watermelon Allergy Food Verified 12/08/24 18:10 Allergy Family History Grandmother Breast cancer Surgical History Hx of tonsillectomy History of eyelid surgery Hx of plastic surgery Hx of abdominoplasty Hx of breast reduction, elective Hx of surgical procedure Hx of shoulder surgery Hx of hysterectomy Hx of gastric bypass Hx of colonoscopy Social History household members: spouse current occupational status: retired Smoking Status: Never smoker EXAM Physical Exam Const Vital Signs: 12/08/24 17:04 12/08/24 18:03 12/08/24 18:14 Temperature 98.1 F Temperature Source Temporal Pulse Rate 84 79 82 Respiratory Rate 16 17 17 Blood Pressure 133/92 H 178/102 H 169/81 H Blood Pressure Mean 105 127 110 Pulse Ox 97 97 98 Oxygen Delivery Method Room Air Room Air Room Air MDM MDM MDM Narrative Medical decision making narrative: HISTORY OF PRESENT ILLNESS: 69-year-old female presenting with concern for balance difficulty. Notes she woke up feeling her balance was off. She notes some visual disturbance. She notes having she can stress. States symptoms have been resolving since onset was this morning approximate 10:15 AM on 12/08/2024. She notes at that time she was attempting to obtain an Uber to make her way to the emergency department when she noted some waviness to her visual acuity. She notes this is since resolved. She denies any falls or trauma. Denies headaches. Denies neck pain or chest pain. Denies palpitations. Denies vomiting or diarrhea. Denies any bleeding diathesis. Denies any focal numbness weakness or loss of sensation. REVIEW OF SYSTEMS: Pertinent positives: Dizziness, visual disturbance Pertinent negatives: Chest pain, palpitations, vomiting, syncope, slurred speech, facial drooping, abdominal pain, vomiting, bleeding diathesis PHYSICAL EXAM: Nursing triage notes reviewed, Vital signs reviewed Constitutional: please see mdm HENT: MMM Eyes: Pupils equal round and reactive to light, Extraocular muscles intact Neck: No stridor, no JVD, full neck ROM Lungs: Clear to auscultation, No wheezing or rales. No increased work of breathing, no conversational dyspnea, no accessory muscle use, no nasal flaring. No respiratory distress noted Heart: Regular rate and rhythm, No murmurs, No rubs and No gallops, 2+ distal pulses (radial, femoral, posterior tibial) in all extremities Abdomen: Soft, there is no tenderness, rigidity, rebound or guarding, no obvious peritoneal signs, no palpable pulsatile abdominal masses, no auscultated abdominal bruit : No CVAT Extremities: No edema Neuro: Alert and oriented x3, neuro exam at baseline, cranial nerves II through XII are intact. No pain with extraocular muscle movement. There is negative test of skew. 5 of 5 strength in upper and lower extremities in flexion extension. Intact sensation to light touch in upper and lower extremity dermatomes. No truncal or extremity ataxia. No dysdiadochokinesia. Normal gait. 2+ reflexes in upper and lower extremities. No meningeal signs. Negative Babinski. NIH of 0. Skin: No rash or lesions noted MEDICAL DECISION MAKING: Chief Complaint: Balance difficulty, visual changes External records reviewed: Prior imaging reviewed Factors affecting care: anxiety, PTSD, IBS Social determinants of health: alcohol use, History obtained from others: none Consults: none MDM Narrative: Patient was initially hemodynamically stable, afebrile and nontoxic-appearing. Initial exam without visual field defects, normal visual acuity, no focal neurologic diffuse deficits. NIH of 0. I considered the following differential diagnosis: ICH, mass, posterior circulation CVA, dehydration, alcohol induced balance difficulties, anxiety CT scan was placed of the head without contrast secondary to poor departmental conditions including high volume and high acuity ALL IMAGES (IF OBTAINED) HAVE BEEN PERSONALLY REVIEWED AND INTERPRETED BY MYSELF. CT scan of the head was negative for ICH or mass I considered obtaining additional labs images including a chest x-ray, EKG, troponin, CBC, BMP however patient who was alert and orient x 3 stated she did not think was necessary. She wants to know why she felt this way earlier but notes she feels much better now and is no longer concerned. She is think she has had any life-limiting emergency and is okay with discharge and follow-up with neurology and ophthalmology as I recommended. The patient and/or family, caregivers express understanding. The patient and/or family, caregivers agrees with the plan. Shared decision making: I will have a discussion with the patient and or visitors regarding risk/benefits of further testing or admission. They will be made aware of of the risk/benefits inherent in this decision they will be given the opportunity to voice understanding. Total critical care time today provided was at least 0 minutes. This excludes separately billable procedures. Critical care time (if documented) is secondary to the patient having high probability of clinically significant/life threatening deterioration in the patient's condition which required my urgent intervention. Impression: 1. Dizziness 2. Transient visual disturbance Dispo: Discharge home This note was generated with Intent dictation software. It may contain incorrect words, spelling, and punctuation that were not noted in review of the chart prior to signing. Radiography Diagnostic Testing: Clinical Impression(s) from Imaging Studies Brain CT 12/08/24 17:10 IMPRESSION: No acute intracranial finding. Findings of chronic microvascular ischemic changes and age-related changes. Reading Location: [facility] Discharge Plan Triage Chief Complaint: Dizziness ED Provider: Gato Rivera Dx/Rx/DC Orders Prescriptions: No Action hyoscyamine sulfate 0.125 mg tablet, sublingual 0.125 mg sublingual BID-QID PRN (Reason: dyspepsia) levothyroxine 125 mcg capsule 125 mcg PO WETHFRSA cholecalciferol (vitamin D3) 50 mcg (2,000 unit) capsule 100 mcg PO DAILY Restasis MultiDose 0.05 % drops 1 drp ophthalmic (eye) BID Zyrtec 10 mg capsule 10 mg PO DAILY PRN (Reason: allergy symptoms) famotidine 20 mg tablet 20 mg PO QDAY mesalamine 1.2 gram tablet,delayed release (DR/EC) 4.8 g PO QDAY doxepin 6 mg tablet 6 mg PO QHS Qty: 30 1RF venlafaxine 225 mg tablet extended release 24hr 225 mg PO QDAY Qty: 90 1RF prazosin 2 mg capsule 2 mg PO QHS Qty: 30 2RF Primary Care Provider: Anel Dan Referrals: Anel Dan MD [Primary Care Provider] - Print Language: Sami
[2024-12-08 18:35] VITALS: BP 169/81; PULSE 78; RESP 16; TEMP 36.7; O2SAT 99
== END 2024-12-08 18:35 | disposition home or self-care (01) ==
PROVIDERS: Emergency Provider Emergency Medicine; PCP Family Medicine; Referring Provider Emergency Medicine; Visit Provider Emergency Medicine
DX: R42 Dizziness and giddiness (principal); H53.9 Unspecified visual disturbance; R26.89 Other abnormalities of gait and mobility; K58.9 Irritable bowel syndrome, unspecified; F41.9 Anxiety disorder, unspecified; F43.10 Post-traumatic stress disorder, unspecified; Z79.890 Hormone replacement therapy; Z79.899 Other long term (current) drug therapy
CPT/HCPCS: 70450; 99282

== ENCOUNTER → 2025-03-31 | Outpatient (CLI) | payer MEDICARE, SELFPAY ==
[2025-03-31 10:36] LABS: Absolute Lymphocyte Count 1.45 X10^3/uL (0.83-4.51); Absolute Neutrophil Count 5.2 X10^3/uL (2.0-7.7); Basophil# 0.03 X10^3/uL; Basophil% 0.4 % (0-1); Eosinophil# 0.13 X10^3/uL; Eosinophils% 1.8 % (0-5); Hematocrit 41.7 % (37-47); Hemoglobin 13.9 g/dL (12.0-15.0); Lymphocyte # 1.45 X10^3/ul (0.83-4.51); Lymphocyte % 19.6 % (19-41); Mean Corp Hgb Conc 33.3 g/dL (32-36); Mean Corpuscular Volume 93.1 fL (81-99); Mean Platelet Vol. 8.6 fl (6.2-12.0); Monocyte# 0.58 X10^3/uL; Monocyte% 7.8 % (0-10); NRBC Flagged by Analyzer 0 % (0-5); Neutrophil # 5.19 X10^3/uL (2.7-7.7); Platelet Count 309 K/mm3 (150-450); RBC Distribution Width CV 13.1 % (11.6-14.6); RBC Distribution Width SD 44.6 fl (35.1-43.9); Red Blood Count 4.48 M/mm3 (4.2-5.4); White Blood Count 7.4 K/mm3 (4.4-11.0)
[2025-03-31 11:09] LABS: Hemoglobin A1c 5.6 % (<=5.6)
[2025-03-31 11:25] LABS: ALB/GLOB Ratio 1.7 RATIO (0.9-2.4); AST(SGOT) 24 U/L (<=31); Alanine Aminotransfer ALT/SGPT 25 U/L (<=34); Albumin, Serum 4.1 g/dL (3.4-4.8); Alkaline Phosphatase 97 U/L (35-104); Anion Gap 11 (5-15); BUN 18 mg/dL (4-19); BUN/Creat Ratio 19.4 RATIO (10-20); Calcium,Total 9.8 mg/dL (7.6-11.0); Carbon Dioxide 26.3 mmol/L (21.0-32.0); Chloride 103 mmol/L (98-108); Creatinine, Serum 0.93 mg/dL (0.70-1.20); EST Glomerular Filtration Rate 65 (>60); Globulin 2.5 g/dL (2.2-4.2); Glucose 90 mg/dL (70-99); Potassium 4.2 mmol/L (3.3-5.1); Protein, Total 6.6 g/dL (5.9-8.4); Sodium Level 141 mmol/L (133-145); Total Bilirubin 0.37 mg/dL (0.00-1.30); Vitamin B12 226 pg/mL (180-914); Vitamin D,25 Hydroxy 34.7 ng/mL (30-100)
== END | disposition home or self-care (01) ==
LOC: MTLAB 08:32
PROVIDERS: PCP Family Medicine; Referring Provider Family Medicine; Visit Provider Family Medicine
DX: E16.2 Hypoglycemia, unspecified (principal); R53.83 Other fatigue; E03.9 Hypothyroidism, unspecified; E55.9 Vitamin D deficiency, unspecified; Z98.84 Bariatric surgery status
CPT/HCPCS: 36415; 80053; 82306; 82607; 83036; 84439; 84443; 85025

== ENCOUNTER → 2025-04-15 | Outpatient (CLI) | payer MEDICARE, SELFPAY ==
[2025-04-15 17:51] LABS: Hematocrit 42.6 % (37-47); Hemoglobin 14.5 g/dL (12.0-15.0); Mean Corp Hgb Conc 34.0 g/dL (32-36); Mean Corpuscular Volume 93.6 fL (81-99); Mean Platelet Vol. 8.7 fl (6.2-12.0); Platelet Count 373 K/mm3 (150-450); RBC Distribution Width CV 13.2 % (11.6-14.6); RBC Distribution Width SD 45.1 fl (35.1-43.9); Red Blood Count 4.55 M/mm3 (4.2-5.4); White Blood Count 8.2 K/mm3 (4.4-11.0)
[2025-04-15 18:16] LABS: AST(SGOT) 22 U/L (<=31); Alanine Aminotransfer ALT/SGPT 20 U/L (<=34); Albumin, Serum 4.2 g/dL (3.4-4.8); Alkaline Phosphatase 124 U/L (35-104); Anion Gap 13 (5-15); BUN 20 mg/dL (4-19); BUN/Creat Ratio 21.4 RATIO (10-20); Calcium,Total 9.8 mg/dL (7.6-11.0); Carbon Dioxide 24.5 mmol/L (21.0-32.0); Chloride 101 mmol/L (98-108); Globulin 3.0 g/dL (2.2-4.2); Glucose 88 mg/dL (70-99); Potassium 4.1 mmol/L (3.3-5.1)
== END | disposition home or self-care (01) ==
LOC: MTLAB 15:09
PROVIDERS: PCP Family Medicine; Referring Provider Family Medicine; Visit Provider Family Medicine
DX: E03.9 Hypothyroidism, unspecified (principal)
CPT/HCPCS: 36415; 80053; 84443; 85027

== ENCOUNTER → 2025-05-27 | Outpatient (CLI) | payer MEDICARE, SELFPAY | END | disposition home or self-care (01) | LOC: MTLAB 15:37 | PROVIDERS: PCP Family Medicine; Referring Provider Family Medicine; Visit Provider Family Medicine | DX: E03.9 Hypothyroidism, unspecified (principal) | CPT/HCPCS: 36415; 84443 ==

== ENCOUNTER → 2025-07-29 | Outpatient (CLI) | payer MEDICARE, SELFPAY ==
[2025-08-03 10:09] LABS: Calprotectin, Stool 207 ug/g (0-120)
== END | disposition home or self-care (01) ==
PROVIDERS: PCP Family Medicine
DX: K51.50 Left sided colitis without complications (principal); R19.7 Diarrhea, unspecified
CPT/HCPCS: 83993

== ENCOUNTER → 2025-08-25 | Outpatient (CLI) | payer MEDICARE, SELFPAY ==
--- NOTE | 2025-08-25 16:19 | RAD_ITS ---
PROCEDURE: SHOULDER MIN 2 VIEWS 08/25/2025 REASON FOR EXAM: RIGHT SHOULDER INJURY TECHNIQUE: Procedure Code: RADSH Modality: DX Procedure: SHOULDER MIN 2 VIEWS Laterality: Right COMPARISON: None. RAD/Shoulder min 2 Views IMPRESSION: Feib-of-adowndog right acromioclavicular joint degenerative changes are seen, w ith partial joint narrowing. The right glenohumeral joint demonstrates mild degenerative changes, without as sociated joint narrowing. Prominent degenerative changes of the spine, including thoracic dextroscoliosis are also seen. No acute fracture or dislocation is seen. If clinical concern persists, short-term follow-up imaging may be obtained to r ule out a currently occult fracture. Reading Location: [place] [id number]
--- NOTE | 2025-08-25 16:33 | RAD_ITS ---
PROCEDURE: SHOULDER MIN 2 VIEWS 08/25/2025 REASON FOR EXAM: SHOULDER PAIN TECHNIQUE: Procedure Code: RADSH Modality: DX Procedure: SHOULDER MIN 2 VIEWS Laterality: FINDINGS: No evidence acute fracture or dislocation. Mild acromioclavicular and moderate glenohumeral degenerative changes. Small calcification adjacent to the radial neck which is well corticated and appears chronic. RAD/Shoulder min 2 Views IMPRESSION: No acute osseous abnormalities. Osteoarthrosis. Reading Location: [id number]
--- NOTE | 2025-08-25 16:33 | RAD_ITS ---
PROCEDURE: HIPS B/L MIN 2 VIEWS W/ PELVIS 08/25/2025 REASON FOR EXAM: HIP PAIN TECHNIQUE: Procedure Code: RADHPELP Modality: DX Procedure: HIPS B/L MIN 2 VIEWS W/ PELVIS Laterality: FINDINGS: No evidence of acute fracture or dislocation. Chronic calcification adjacent to the right greater trochanter. Mild degenerative changes of the right hip joint space. Mild degenerative changes of the left hip joint space. RAD/Hips B/L min 2 views w/ Pelvis IMPRESSION: No acute osseous abnormalities. Mild osteoarthrosis. Reading Location: [id number]
== END | disposition home or self-care (01) ==
PROVIDERS: PCP Family Medicine; Referring Provider Family Medicine; Visit Provider Family Medicine
DX: M25.519 Pain in unspecified shoulder (principal)
CPT/HCPCS: 73030; 73521